=== PATIENT | female | born 1940 | race Caucasian/White ===

== ENCOUNTER 2019-07-22 08:54 | Inpatient (IN) ==
--- NOTE | 2019-07-13 15:46 | History & Physical Report ---
Date of Service July 13, 2019 Assessment & Plan (1) Osteoarthritis of right hip: DIAGNOSIS: Right hip osteoarthritis. PROCEDURE: Right total hip arthroplasty. PLAN: The patient is scheduled to undergo the procedure with Dr. Sunil Gonzalez as an inpatient at [facility] on , 07/22/2019. Risks and complications of the procedure such as infection, bleeding, pain, scarring, nerve and blood vessel damage, weakness, wound problems, stiffness, incomplete relief of symptoms, hardware failure, loosening, wear, fracture, tendon or ligament injury, dislocation, leg length inequality, blood clots, embolism, heart attack, stroke, were explained to the patient at her visit today by Dr. Gonzalez. Informed consent to perform the procedure was obtained. We will also need to obtain preoperative medical clearance from the patient's primary care provider, Dr. Dominguez. She states she has an appointment with her on Friday. We will also obtain a preoperative CBC with differential, complete metabolic panel, PT, INR, blood type and screen, urinalysis, urine culture, EKG, hemoglobin A1c and a nasal culture for MRSA. The patient states she has an appointment with anesthesia for preoperative anesthesia testing tomorrow and will receive the necessary preoperative testing at that time. The patient will be scheduled for her 2-week postoperative followup with myself on August 03 at 1:45. She states that she has a handicap placard in her car already and does not need another one. She has a walker that she will bring with her on the day of surgery. I did provide her with information about lectures offered at [facility] to hip [facility] replacement surgery. The patient states she has previously had a total knee arthroplasty and has done some research and understands what she will go through in regards to hip replacement. She also states that her son that lives with her had a total hip replacement in the past and will use the tools from his hip kit post operatively. She states she will most likely have some in-home with therapy for 2 weeks postoperatively before starting outpatient therapy. She states she already understands about the use of antibiotics prior to dental procedures. I advised the patient that I will prescribe her pain medication postoperatively before she is discharged. We will have her resume her aspirin twice daily for 30 days postoperatively for DVT prophylaxis along with the use of MANOHAR stockings. I have advised her that she will have her initial PT, OT visits while she is inpatient. She states she is not able to do her PT in our clinic after 2 weeks of in-home therapy, she will do it at one of the other local physical therapy establishments. The patient verbalizes understanding of all information provided during today's visit, thanked us for the care she has received and states if she has questions or concerns that should arise prior to her surgery date, she will contact the clinic accordingly. History of Present Illness Chief Complaint: Right hip pain Primary Care Provider: Lorin Dominguez MD HISTORY OF PRESENT ILLNESS: This 79-year-old female presents to clinic today for a preoperative history and physical. The patient complains of progressive increase in pain in her right hip over the past year that causes her to use a walker. She states she has been using Celebrex with only minimal relief of her pain. She states the pain is most severe at night when she tries to sleep. She refers most of her pain to the lateral and posterior aspect of her hip and feels it is affecting her activities of daily living and is ready to proceed with surgical intervention. PAST SURGICAL HISTORY: Left total knee arthroplasty, hysterectomy, cholecystectomy, right rotator cuff repair, small bowel resection, bilateral cataract removal and colonoscopy. PAST MEDICAL HISTORY: Hypertension, gout, gastroesophageal reflux disease. FAMILY HISTORY: Positive for cancer and heart disease. ALLERGIES: The patient has no known drug allergies. CURRENT MEDICATIONS USED: Allopurinol 300 mg oral tablet 1 tab daily, amlo dipine 5 mg oral tablet daily, aspirin 81 mg oral tablet daily, Celebrex 100 mg oral capsule 1 cap twice daily as needed for pain, hydrochlorothiazide/losartan 25 mg/100 mg oral tablet daily, meloxicam 7.5 mg oral tablet daily, omeprazole 40 mg oral delayed release capsule daily, Toprol-XL 100 mg oral tablet extended release 1 tab daily. SOCIAL HISTORY: The patient denies a history of smoking, alcohol or illicit drug use. Allergies Allergy/AdvReac Type Severity Reaction Status Date / Time No Known Allergies Allergy Unknown Verified 07/13/19 09:57 Home Medications Home Medications Medication Instructions Recorded Confirmed Type allopurinol 300 mg PO QAM 07/13/19 07/13/19 History amlodipine 5 mg PO HS 07/13/19 07/13/19 History aspirin [Aspir-81] 81 mg PO QAM 07/13/19 07/13/19 History bupropion HCl 150 mg PO Q2D 07/13/19 07/13/19 History celecoxib [Celebrex] 100 mg PO BID PRN 07/13/19 07/13/19 History losartan-hydrochlorothiazide 1 tab PO QAM 07/13/19 07/13/19 History metoprolol succinate 100 mg PO HS 07/13/19 07/13/19 History multivitamin 1 tab PO QAM 07/13/19 07/13/19 History omeprazole 40 mg PO QAM 07/13/19 07/13/19 History turmeric root extract 1,000 mg PO QPM 07/13/19 07/13/19 History vitamin E 400 unit PO QAM 07/13/19 07/13/19 History Past Med/Surg History Medical History Depression GERD (gastroesophageal reflux disease) Gout Hyperlipidemia NO MEDS CURRENTLY Hypertension Osteoarthritis Surgical History History of appendectomy History of cataract surgery R/L History of cholecystectomy History of colonoscopy History of hysterectomy TOTAL History of repair of rotator cuff RIGHT History of total knee replacement LEFT Family History Brother Family hx of colon cancer Social History Preferred Language: Occitan Communication Ability: Effective 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 No open skin lesions or discharge. Eyes: Pupils are equal and reactive to light and accommodating. Extraocular movements are intact. Throat: Posterior pharynx is clear with absence of edema, erythema or exudate. Cardiovascular exam: The patient has a regular rate and rhythm, no murmurs, rubs or gallops appreciated. Lungs: Auscultation of lung patino reveals clear breath sounds throughout with no wheezing, rales or rhonchi. Abdomen is mildly obese, nondistended, nontender with normoactive bowel sounds. Extremities: Right hip, the patient flexion is limited to 85 degrees, external rotation to 35 degrees, internal rotation to -5 degrees. Stinchfield log roll and impingement scour tests are all positive. The patient experiences referred pain to the lateral aspect of the hip with active abduction and adduction. The patient is neurovascularly intact in the right lower extremity. Neurological exam: Cranial nerves 2-12 are intact with no motor or sensory deficit. Psychological/general exam: The patient is alert and oriented x3 with proper grooming and hygiene.
--- NOTE | 2019-07-14 16:31 | PAT Medication Instructions ---
Medication Instructions Date of Service July 14, 2019 Home Medications allopurinol 300 mg PO QAM amlodipine 5 mg PO HS aspirin [Aspir-81] 81 mg PO QAM bupropion HCl 150 mg PO Q2D celecoxib [Celebrex] 100 mg PO BID PRN losartan-hydrochlorothiazide 1 tab PO QAM metoprolol succinate 100 mg PO HS multivitamin 1 tab PO QAM omeprazole 40 mg PO QAM turmeric root extract 1,000 mg PO QPM vitamin E 400 unit PO QAM Continue as directed bupropion HCl 150 mg PO Q2D ASK your surgeon for instructions celecoxib [Celebrex] 100 mg PO BID PRN STOP taking 2 weeks before surgery (or as soon as possible if surgery is within 2 weeks) turmeric root extract 1,000 mg PO QPM vitamin E 400 unit PO QAM DO NOT take the morning of surgery losartan-hydrochlorothiazide 1 tab PO QAM multivitamin 1 tab PO QAM Take morning of surgery With a small sip of water, OTHERWISE NOTHING TO EAT OR DRINK AFTER MIDNIGHT: allopurinol 300 mg PO QAM aspirin [Aspir-81] 81 mg PO QAM omeprazole 40 mg PO QAM Take evening before surgery amlodipine 5 mg PO HS metoprolol succinate 100 mg PO HS Other Notes If you have any questions please call us at [phone] or [phone] or [phone] or [phone]
--- NOTE | 2019-07-15 09:47 | Anesthesiology Consultation ---
Date of Service July 15, 2019 Assessment & Plan (1) Encounter for pre-operative examination: Chart Review Chart Review: Acceptable Risk for Surgery (pending surgeon-ordered PCP clearance scheduled 07/16 (Dr. Dominguez)) and Patient seen in Pre Admission Testing Teaching & Discussion Pre-Anesthesia Teaching/Discussion Notes: Instructed NPO after midnight before surgery,except medications with 15 cc of water. Medication instructions prov ided according to the PAT guidelines. History Surgery Operation Date: 07/22/19 10:35 Proposed Procedures p Right Total Hip Arthroplasty - Sunil Gonzalez MD Height/Weight Height: 5 ft 2 in Weight: 83.9 kg Allergies Allergy/AdvReac Type Severity Reaction Status Date / Time No Known Allergies Allergy Unknown Verified 07/13/19 09:57 Medications Home Medications Medication Instructions Recorded Confirmed Last Taken allopurinol 300 mg PO QAM 07/13/19 07/13/19 Unknown amlodipine 5 mg PO HS 07/13/19 07/13/19 Unknown aspirin [Aspir-81] 81 mg PO QAM 07/13/19 07/13/19 Unknown bupropion HCl 150 mg PO Q2D 07/13/19 07/13/19 Unknown celecoxib [Celebrex] 100 mg PO BID PRN 07/13/19 07/13/19 Unknown losartan-hydrochlorothiazide 1 tab PO QAM 07/13/19 07/13/19 Unknown metoprolol succinate 100 mg PO HS 07/13/19 07/13/19 Unknown multivitamin 1 tab PO QAM 07/13/19 07/13/19 Unknown omeprazole 40 mg PO QAM 07/13/19 07/13/19 Unknown turmeric root extract 1,000 mg PO QPM 07/13/19 07/13/19 Unknown vitamin E 400 unit PO QAM 07/13/19 07/13/19 Unknown Past Medical History Medical History Depression GERD (gastroesophageal reflux disease) controlled Gout Hyperlipidemia Hypertension Osteoarthritis Exercise / Class Metabolic Activity III < 4 Walking/Shop/Light housework (uses walker PRN) Past Family History Family History Brother Family hx of colon cancer Past Surgical History Surgical History History of appendectomy History of cataract surgery R/L History of cholecystectomy History of colonoscopy History of hysterectomy TOTAL History of repair of rotator cuff RIGHT History of total knee replacement LEFT Past Anesthesia History No Hx of Anesthesia Complications and No Family Hx of Anesthesia Complications History of PONV No Hx of PONV and No Hx of Motion Sickness Social History Smoking Status: Never smoker Do You Dip or Chew Tobacco: No Hx Alcohol Use: No Hx Substance Use: No Review of Systems Reflux controlled. Patient denies chest pain, shortness of breath, cough, wheezing, palpitations. Physical Exam Vital Signs VITALS BP 155/77 P 67 TEMP 97.5 SP02 96%RA RESP 16 PHYSICAL Full neck and c-spine range of motion. Full TMJ range of motion. TMD 4 finger breaths Mallampati Score 1 Dentition: full dentures upper/lower; edentulous Lungs: clear throughout to auscultation Cardiac: regular rate and rhythm, no murmurs noted Spine: normal Carotid arteries: negative bruit Extremities: no edema Testing Laboratory Results 07/15/19 10:16 07/15/19 10:16 PT 10.3 Seconds (9.0-12.0) 07/15/19 10:16 INR 1.0 (0.9-1.1) 07/15/19 10:16 APTT 24.8 Seconds (21.0-31.0) 07/15/19 10:16 Hemoglobin A1c 6.8 % (4.5-5.6) H 07/15/19 10:16 Urine Color Yellow 07/15/19 Unknown Urine Appearance Clear (Clear) 07/15/19 Unknown Urine pH 6.0 (4.5-7.5) 07/15/19 Unknown Ur Specific [place] 1.020 (1.000-1.030) 07/15/19 Unknown Urine Protein Negative (Negative) 07/15/19 Unknown Urine Glucose (UA) Negative (Negative) 07/15/19 Unknown Urine Ketones Negative (Negative) 07/15/19 Unknown Urine Nitrite Negative (Negative) 07/15/19 Unknown Ur Leukocyte Esterase 1+ (Negative) H 07/15/19 Unknown Urine WBC (Auto) 5-10 /hpf (0-5) H 07/15/19 Unknown Urine RBC (Auto) 0-4 /hpf (0-4) 07/15/19 Unknown U Hyaline Cast (Auto) 1-5 /lpf (0-5) 07/15/19 Unknown U Epithel Cells (Auto) >30 /lpf (0-5) H 07/15/19 Unknown Urine Bacteria (Auto) 1+ (Negative) H 07/15/19 Unknown Blood Type O Positive 07/15/19 10:16 Antibody Screen NEGATIVE 07/15/19 10:16 *Surgeon made aware of abnormal UA* Electrocardiogram Date: 07/15/19 NSR with sinus arrhythmia at 63bpm.
[2019-07-15 11:50] LABS: Basophils # (auto) 0.04 K/uL (0-0.2); Basophils % (auto) 0.5 %; Eosinophils # (auto) 0.21 K/uL (0-0.5); Eosinophils % (auto) 2.4 %; Hematocrit (blood only) 41.9 % (37-47); Hemoglobin 14.2 g/dL (12.0-16.0); Immature Granulocytes # (auto) 0.03 K/uL (0.00-0.02); Immature Granulocytes % (auto) 0.3 %; Lymphocytes # (auto) 2.04 K/uL (1.2-3.4); Lymphocytes % (auto) 23.1 %; Mean Corpuscular Hemoglobin 30.3 pg (25-34); Mean Corpuscular Hgb Conc 33.9 g/dL (32-36); Mean Corpuscular Volume 89.3 fL (80-100); Mean Platelet Volume 9.6 fL (7.4-10.4); Monocytes # (auto) 0.62 K/uL (0.11-0.59); Neutrophils % (auto) 66.7 %; Platelet Count 336 K/uL (130-400); RDW Coefficient of Variation 14.7 % (11.5-14.5); RDW Standard Deviation 47.5 fL (36.4-46.3); Red Blood Count 4.69 M/uL (4.2-5.4); White Blood Count 8.84 K/uL (4.8-10.8)
[2019-07-15 11:58] LABS: Appearance Urine Clear (Clear); Bacteria Urine Automated 1+ (Negative); Bilirubin Urine Negative (Negative); Blood Urine Negative (Negative); Color Urine Yellow; Epithelial Cell Urine Auto >30 /lpf (0-5); Glucose Urine UA Negative (Negative); Ketones Urine Negative (Negative); Leukocyte Esterase Urine 1+ (Negative); Nitrite Urine Negative (Negative); Protein Urine Negative (Negative); RBC Urine Automated 0-4 /hpf (0-4); Urobilinogen Urine Negative (Negative)
[2019-07-15 12:03] LABS: Partial Thromboplastin Ratio 0.9; Partial Thromboplastin Time 24.8 Seconds (21.0-31.0); Prothrombin Time 10.3 Seconds (9.0-12.0)
[2019-07-15 12:21] LABS: Albumin Level 3.5 gm/dl (3.4-5.0); BUN Creatinine Ratio 22.6 (10-20); Calcium 9.5 mg/dl (8.5-10.1); Creatinine Clr Calc Pharmacy 47.1 ml/min; Est GFR (African American) 65.9; Est GFR (Non-African American) 56.9; Potassium 3.5 mmol/L (3.5-5.1)
[2019-07-15 12:24] LABS: Bilirubin,Total 0.5 mg/dl (0.2-1); Globulin 3.5 gm/dl (2.5-4.0)
[2019-07-15 12:45] LABS: Estimated Average Glucose 148 mg/dl; Hemoglobin A1C 6.8 % (4.5-5.6)
[~2019-07-22 08:54] MED LIST: ACETAMINOPHEN 500 MG TAB PO SCH; BUPIVACAINE 0.5 % 5 MG/1 ML PF 10ML VIAL ONE; CEFAZOLIN 2000MG 2,000 MG/15 ML SYR IV SCH; CeleBREX 200 MG CAP PO SCH; FAMOTIDINE 20 MG TAB PO SCH; LR 500ML BOLUS, THEN 15ML/HR IV SCH; LR 60ML/HR IV SCH; METOCLOPRAMIDE HCL 10 MG TABLET PO SCH; ROPIVACAINE 0.5% HCL/PF 150 MG, BUPIVACAINE 0.5% MPF 30 ML, EPINEPHrine 0.15 MG, Ketoro... INFIL SCH; SCOPOLAMINE 1.5 MG TDSY TD SCH; TRAMADOL HCL 50 MG TABLET PO SCH; TRANEXAMIC ACID 1,000 MG **IV Intra-op IV SCH; TRANEXAMIC ACID 1,000 MG **IV Pre-op IV SCH; VANCOMYCIN HCL 1,250 MG in SODIUM CHLORIDE 0.9% 250 ML IV SCH; dexAMETHasone 4 MG TAB PO SCH
--- NOTE | 2019-07-22 09:30 | History & Physical Bridge Note ---
Date of Service July 22, 2019 History & Physical Bridge Note I have examined the patient, reviewed the History & Physical and in the interval since the performance of the History & Physical I have noted the following changes of clinical significance: no changes noted
[2019-07-22] MEDS ORDERED: PROPOFOL IV EMULSION 10 MG/ML 20 ML VIAL IV ONE ×2 (10:33→13:13)
[2019-07-22] MEDS ORDERED: fentaNYL citrate 100 MCG/2 ML VIAL ONE (10:33)
[2019-07-22] MEDS ORDERED: ONDANSETRON INJ 2 MG/ML 2 ML VIAL ONE (10:33)
[2019-07-22] MEDS ORDERED: MIDAZOLAM HCL 1 MG/ML 2ML VIAL ONE (10:33)
[2019-07-22] MEDS ORDERED: LIDOCAINE HCL 2% 2 ML VIAL/AMP(20MG/ML) INFIL ONE (10:33)
[2019-07-22] MEDS ORDERED: ORTHO JOINT ANESTHETIC ONE (11:44)
[2019-07-22] MEDS ORDERED: ePHEDrine sulfate 50 MG/ML AMP IV PRN (12:48)
[2019-07-22] MEDS ORDERED: ATROPINE SULFATE 0.1 MG/ML 10ML SYR IV PRN (12:48)
--- NOTE | 2019-07-22 14:04 | Post Operative Brief Note ---
Immediate Post Op Note v1 Date of Surgery July 22, 2019 Pre & Post Diagnosis Operation Date: 07/22/19 11:55 Pre-Op Diagnosis: Right Hip Arthritis Post-Op Diagnosis: Right Hip Arthritis Procedure Operation Date: 07/22/19 11:55 Actual Procedures p Right Total Hip Arthroplasty(Right) - Sunil Gonzalez MD Surgeon Sunil Gonzalez MD [employer] AIDAN Cook PA-C Estimated Blood Loss 100 Findings Consistent with Post-Op Diagnosis Fluids 1100 cc Anesthesia Type Spinal MAC Complications none Disposition Accompanied Patient To Recovery: No Disposition: Recovery Room
[2019-07-22] MEDS ORDERED: ONDANSETRON INJ 2 MG/ML 2 ML VIAL IV PRN (14:28)
[2019-07-22] MEDS ORDERED: METOCLOPRAMIDE HCL INJ 5 MG/ML 2 ML VIAL IV PRN (14:28)
[2019-07-22] MEDS ORDERED: NALOXONE HCL 0.4 MG/1 ML VIAL/CARP IV PRN (14:28)
[2019-07-22] MEDS ORDERED: BISACODYL 10 MG SUPP PR PRN (14:28)
[2019-07-22] MEDS ORDERED: HYDROmorphone INJ 0.5 MG/0.5 ML SYR IV PRN (14:28)
[2019-07-22] MEDS ORDERED: DiphenhydrAMINE HCL 50 MG/ML VIAL IV PRN (14:28)
[2019-07-22] MEDS ORDERED: OXYCODONE HCL IR 5 MG TAB (IMMEDIATE RELEASE) PO PRN (14:28)
[2019-07-22] MEDS ORDERED: MAGNESIUM HYDROXIDE SUSP 30 ML UDC PO PRN (14:28)
--- NOTE | 2019-07-22 14:28 | Operative Report ---
Post Operative Report Pre & Post Diagnosis Operation Date: 07/22/19 11:55 Pre-Op Diagnosis: Right Hip Arthritis Post-Op Diagnosis: Right Hip Arthritis Procedure Operation Date: 07/22/19 11:55 Actual Procedures p Right Total Hip Arthroplasty(Right) - Sunil Gonzalez MD Surgeon Sunil Gonzalez MD [employer] AIDAN Cook PA-C Estimated Blood Loss 100 Findings Consistent with Post-Op Diagnosis Specimens femoral head Complications none Disposition Accompanied Patient To Recovery: Yes Disposition: Recovery Room Description of Procedure I was present during the entire procedure assisting with wound closure and dressing application. Please see Dr. Gonzalez procedure note for specifics of the case. I attest to the content of the Intraoperative Record and any orders documented therein. Any exceptions are noted below.
[2019-07-22] MEDS ORDERED: SODIUM CHLORIDE 0.9% 1000ML 1,000 ML IV SCH (14:30)
[2019-07-22] MEDS ORDERED: CELECOXIB 100 MG CAP PO PRN (14:31)
--- NOTE | 2019-07-22 15:07 | Anesthesiology Progress Note ---
Date of Service July 22, 2019 Anesthesia Post Procedure Vital Signs Vital Signs: Temp Pulse Pulse Resp BP Pulse Ox 07/22/19 14:55 73 20 131/61 97 07/22/19 14:45 67 14 125/59 L 98 07/22/19 14:35 69 17 126/56 L 96 07/22/19 14:25 68 17 120/54 L 98 07/22/19 14:17 36.3 C L 73 12 109/72 98 07/22/19 09:56 36.5 C 72 16 145/74 H 93 Pain Intensity Right Hip: Pain Intensity: 0 Transfer of Care Handoff Completed per policy Notes Mental Status: alert / awake / arousable Patient Amnestic to Procedure: Yes Nausea / Vomiting: adequately controlled Pain: adequately controlled Airway Patency, RR, SpO2: stable & adequate BP & HR: stable & adequate Hydration State: stable & adequate Neuraxial Anesthesia: was administered and sensory block is resolving Anesthetic Complications: no major complications apparent
--- NOTE | 2019-07-22 15:13 | XRay Report ---
SINGLE VIEW PELVIS; SINGLE VIEW RIGHT HIP CLINICAL HISTORY: Postoperative examination. FINDINGS: An AP portable view of the hips and pelvis with a crosstable lateral portable view of the r ight hip are obtained. A bipolar right hip arthroplasty is in near-anatomic alignment. A single corti dalia lag screw transfixes the acetabular cup. No acute fracture is identified. There are expected post operative changes overlying the right hip including subcutaneous gas, and soft tissue swelling. Moder ate to advanced arthritic change is noted in the left hip. IMPRESSION: Expected postoperative findings status post right hip arthroplasty. No acute fracture is seen. Electronically signed by: Liam Hill M.D. 07/22/2019 3:12 PM
[2019-07-22] MEDS: CHECK SCOPOLAMINE PATCH PLACEMENT SCH ×2 (15:51→23:18)
[2019-07-22] MEDS: CEFAZOLIN 2000MG 2,000 MG/15 ML SYR IV SCH (19:33)
[2019-07-22] MEDS ORDERED: TRANEXAMIC ACID 1,000 MG in 0.9 % SODIUM CHLORIDE 100 ML IV SCH (20:30)
[2019-07-22] MEDS ORDERED: SENNA 8.6 MG TAB PO SCH (21:00)
[2019-07-22] MEDS ORDERED: AMLODIPINE BESYLATE 5 MG TAB PO SCH (21:00)
[2019-07-22] MEDS ORDERED: METOPROLOL SUCC 50MG EXT REL TAB PO SCH (21:00)
[2019-07-22] MEDS ORDERED: TURMERIC ROOT EXTRACT 1000 MG PO SCH (21:00)
[2019-07-22] MEDS ORDERED: ASPIRIN 81 MG ECTAB PO SCH (21:00)
[2019-07-22] MEDS: ASPIRIN 81 MG ECTAB PO SCH (21:28)
[2019-07-22] MEDS: CeleBREX 200 MG CAP PO SCH (21:28)
[2019-07-22] MEDS: DOCUSATE SODIUM 100 MG CAP PO SCH (21:28)
[2019-07-22] MEDS: ACETAMINOPHEN 500 MG TAB PO SCH (21:29)
[2019-07-23] MEDS: CEFAZOLIN 2000MG 2,000 MG/15 ML SYR IV SCH (05:09)
[2019-07-23] MEDS: ACETAMINOPHEN 500 MG TAB PO SCH (05:09)
[2019-07-23 07:17] LABS: Basophils # (auto) 0.01 K/uL (0-0.2); Basophils % (auto) 0.1 %; Hemoglobin 12.2 g/dL (12.0-16.0); Immature Granulocytes # (auto) 0.04 K/uL (0.00-0.02); Immature Granulocytes % (auto) 0.3 %; Lymphocytes # (auto) 1.01 K/uL (1.2-3.4); Lymphocytes % (auto) 6.6 %; Mean Corpuscular Hemoglobin 29.8 pg (25-34); Mean Corpuscular Hgb Conc 33.9 g/dL (32-36); Mean Corpuscular Volume 87.8 fL (80-100); Mean Platelet Volume 9.3 fL (7.4-10.4); Monocytes # (auto) 0.87 K/uL (0.11-0.59); Monocytes % (auto) 5.7 %; Neutrophils # (auto) 13.34 K/uL (1.4-6.5); Neutrophils % (auto) 87.3 %; Platelet Count 306 K/uL (130-400); RDW Coefficient of Variation 14.4 % (11.5-14.5); RDW Standard Deviation 46.5 fL (36.4-46.3); White Blood Count 15.27 K/uL (4.8-10.8)
[2019-07-23 07:21] LABS: BUN Creatinine Ratio 21.1 (10-20); Calcium 8.4 mg/dl (8.5-10.1); Creatinine Clr Calc Pharmacy 43.8 ml/min; Est GFR (African American) 60.5; Est GFR (Non-African American) 52.2; Potassium 3.5 mmol/L (3.5-5.1)
[2019-07-23] MEDS ORDERED: dexAMETHasone 4 MG TAB PO SCH (08:00)
[2019-07-23] MEDS ORDERED: BuPROPion XL 150 MG TABCR PO SCH (09:00)
[2019-07-23] MEDS ORDERED: TOCOPHERYL, DL-ALPHA 400 UNITS CAP PO SCH (09:00)
[2019-07-23] MEDS ORDERED: MULTIVITAMIN TAB PO SCH ×2 (09:00)
[2019-07-23] MEDS ORDERED: ALLOPURINOL 300 MG TAB PO SCH (09:00)
[2019-07-23] MEDS ORDERED: PANTOprazole 40 MG TAB PO SCH (09:00)
[2019-07-23] MEDS ORDERED: LOSARTAN/HCTZ 50/12.5MG TAB PO SCH (09:00)
[2019-07-23] MEDS: ASPIRIN 81 MG ECTAB PO SCH (09:06)
[2019-07-23] MEDS: CeleBREX 200 MG CAP PO SCH (09:06)
[2019-07-23] MEDS: DOCUSATE SODIUM 100 MG CAP PO SCH (09:06)
--- NOTE | 2019-07-23 10:23 | Orthopedic Progress Note ---
Date of Service July 23, 2019 Assessment & Plan (1) S/P total hip arthroplasty: DVT Prophy with TEDs and Aspirin Ice with EZ wrap Reviewed total hip precautions Abduction pillow use x 6 wks WBAT with walker assistance Pain control with PO meds Follow up at [facility] as previously scheduled With questions call Subjective This 79 yo F is day 1 s/p Right total hip arthroplasty. She is doing very well. States that her pain is well controlled with PO meds. States that she did well with PT/OT this AM. Magy hip pain. Also denies CP, SOB, Nausea, vomiting, fever, chills, sweats or lethargy. States that she will be ready to go home after lunch today. Review of Systems Review of Systems: All systems reviewed & are unremarkable except as noted in HPI & below Physical Exam Physical Exam: Right Hip: Able to perform SLRT without difficulty. Dressing clean, dry and intact. No pain with light log roll, passive internal / external rotation. Calf soft and supple. No difficulty actively dorsi/plantar flexing foot. NV intact. Periph pulses palpable. Cap refill < 2 seconds. Results & Data Vital Signs (Past 12 Hours) Vital Signs Temp Pulse Pulse Pulse Resp BP Pulse Ox 07/23/19 09:32 36.6 C 70 80 68 16 128/77 91 07/23/19 07:18 36.6 C 68 16 128/77 91 07/23/19 03:35 36.6 C 82 18 163/81 H 93 07/22/19 23:46 36.5 C 80 18 151/75 H 94 Laboratory Results 07/23/19 07/23/19 Range/Units 06:08 06:08 WBC 15.27 H (4.8-10.8) K/uL RBC 4.10 L (4.2-5.4) M/uL Hgb 12.2 (12.0-16.0) g/dL Hct 36.0 L (37-47) % MCV 87.8 (80-100) fL MCH 29.8 (25-34) pg MCHC 33.9 (32-36) g/dL RDW Std Deviation 46.5 H (36.4-46.3) fL RDW Coeff of Nicky 14.4 (11.5-14.5) % Plt Count 306 (130-400) K/uL MPV 9.3 (7.4-10.4) fL Immature Gran % (Auto) 0.3 % Neut % (Auto) 87.3 % Lymph % (Auto) 6.6 % [place] % (Auto) 5.7 % Eos % (Auto) 0.0 % Baso % (Auto) 0.1 % Immature Gran # (Auto) 0.04 H (0.00-0.02) K/uL Neut # (Auto) 13.34 H (1.4-6.5) K/uL Lymph # (Auto) 1.01 L (1.2-3.4) K/uL [place] # (Auto) 0.87 H (0.11-0.59) K/uL Eos # (Auto) 0.00 (0-0.5) K/uL Baso # (Auto) 0.01 (0-0.2) K/uL Sodium 141 (136-145) mmol/L Potassium 3.5 (3.5-5.1) mmol/L Chloride 107 (98-107) mmol/L Carbon Dioxide 27 (21-32) mmol/L Anion Gap 7.0 (3-11) BUN 21 H (7-18) mg/dl Creatinine 1.01 (0.6-1.2) mg/dl Est Cr Clr Drug Dosing 43.8 ml/min Est GFR ( Amer) 60.5 Est GFR (Non-Af Amer) 52.2 BUN/Creatinine Ratio 21.1 H (10-20) Glucose 164 H (70-99) mg/dl Calcium 8.4 L (8.5-10.1) mg/dl
--- NOTE | 2019-07-23 10:24 | Discharge Summary ---
Date of Service July 23, 2019 Admission HPI Per Admitting Provider HISTORY OF PRESENT ILLNESS: This 79-year-old female presents to clinic today for a preoperative history and physical. The patient complains of progressive increase in pain in her right hip over the past year that causes her to use a walker. She states she has been using Celebrex with only minimal relief of her pain. She states the pain is most severe at night when she tries to sleep. She refers most of her pain to the lateral and posterior aspect of her hip and feels it is affecting her activities of daily living and is ready to proceed with surgical intervention. PAST SURGICAL HISTORY: Left total knee arthroplasty, hysterectomy, cholecystectomy, right rotator cuff repair, small bowel resection, bilateral cataract removal and colonoscopy. PAST MEDICAL HISTORY: Hypertension, gout, gastroesophageal reflux disease. FAMILY HISTORY: Positive for cancer and heart disease. ALLERGIES: The patient has no known drug allergies. CURRENT MEDICATIONS USED: Allopurinol 300 mg oral tablet 1 tab daily, amlodipine 5 mg oral tablet daily, aspirin 81 mg oral tablet daily, Celebrex 100 mg oral capsule 1 cap twice daily as needed for pain, hydrochlorothiazide/losartan 25 mg/100 mg oral tablet daily, meloxicam 7.5 mg oral tablet daily, omeprazole 40 mg oral delayed release capsule daily, Toprol- XL 100 mg oral tablet extended release 1 tab daily. SOCIAL HISTORY: The patient denies a history of smoking, alcohol or illicit drug use. Admission Exam Per Admitting Provider PHYSICAL EXAMINATION: Skin: The patient's skin is normal in appearance. No open skin lesions or discharge. Eyes: Pupils are equal and reactive to light and accommodating. Extraocular movements are intact. Throat: Posterior pharynx is clear with absence of edema, erythema or exudate. Cardiovascular exam: The patient has a regular rate and rhythm, no murmurs, rubs or gallops appreciated. Lungs: Auscultation of lung patino reveals clear breath sounds throughout with no wheezing, rales or rhonchi. Abdomen is mildly obese, nondistended, nontender with normoactive bowel sounds. Extremities: Right hip, the patient flexion is limited to 85 degrees, external rotation to 35 degrees, internal rotation to -5 degrees. Stinchfield log roll and impingement scour tests are all positive. The patient experiences referred pain to the lateral aspect of the hip with active abduction and adduction. The patient is neurovascularly intact in the right lower extremity. Neurological exam: Cranial nerves 2-12 are intact with no motor or sensory deficit. Psychological/general exam: The patient is alert and oriented x3 with proper grooming and hygiene. Principal Diagnosis Right hip osteoarthritis Discharge Exam Right Hip: Able to perform SLRT without difficulty. Dressing clean, dry and intact. No pain with light log roll, passive internal / external rotation. Calf soft and supple. No difficulty actively dorsi/plantar flexing foot. NV intact. Periph pulses palpable. Cap refill < 2 seconds. Discharge Data Allergies Allergy/AdvReac Type Severity Reaction Status Date / Time No Known Allergies Allergy Unknown Verified 07/22/19 09:40 Consultations 07/23/19 08:00 Consult Case Management - Discharge Planning Routine Procedures Performed Operation Date: 07/22/19 11:55 Actual Procedures p Right Total Hip Arthroplasty(Right) - Sunil Gonzalez MD Hospital Course (1) S/P total hip arthroplasty: Patient did very well overnight and will be ready for discharge with home health services after lunch today DVT Prophy with TEDs and Aspirin Ice with EZ wrap Reviewed total hip precautions Abduction pillow use x 6 wks WBAT with walker assistance Pain control with PO meds Follow up at [facility] as previously scheduled With questions call Total Time Total Time Spent Total Time Spent (In Minutes): 20 Total Time Includes: Examination of the Patient, Discharge Planning and Medication Reconciliation Discharge Plan Discharge Items Patient Disposition: Home - Home Health Services Reason For Visit: Right Hip Arthritis Discharge Diagnosis: Right hip osteoarthritis Discharge Goals: Decrease discomfort, Improve function and Increase independence Activity: As commented below Lifting: None Bathing: Keep incision dry Bathing Comment: May shower tomorrow Sexual Activity: Wait until after follow-up appointment Exercise/Sports: Wait until after follow-up appointment Driving/Machine Use Comment: No driving until cleared by content production specialist Weightbearing Comment: as tolerated with walker assistance Non-emergency contact: Primary Care Provider Call non-emergency contact if: you have any medication questions, your pain is not controlled, your temperature is above 101.5, your wound has increased drainage and your wound pain has increased Follow-up/Referrals: Lorin Dominguez MD [Primary Care Provider] - Diet: Regular Addtl Provider Instructions: Post-operative Instructions Dear Patient and Family/Friends, Before you are discharged from the hospital, it is important to know what to expect when you get home after surgery. To that end, we have created this sheet of discharge instructions which covers many commonly asked questions. Make sure you go through this sheet in its entirety with your nurse before you are discharged. Please note that we will go over the specifics of your surgery and recovery when you return for your first post-operative visit. Sincerely, Dr. Gonzalez Medications 1. You will need to increase your 81mg Aspirin to 2 times daily for 30 days post operatively 2. Oxycodone 5 mg: take 1-2 tabs by mouth every 4-6 hrs as needed for pain relief 3. Diclofenac Sodium 75 mg: this will be sent to your pharmacy. Take 1 tab by mouth twice daily for 30 days post operatively 4. Purchase extra Strength Tylenol: Take 2 tabs with every other dose of the Oxycodone. After you have finished the Oxy, then take the Tylenol every 6 hrs as needed for pain relief. Pain Expect to be in a fair amount of pain after surgery. Remember, our goal is not to eliminate your pain, but to make it tolerable. It is a good idea to stay ahead of your pain by taking the medications you were prescribed once you get home. Typically, the pain starts improving 3-7 days after surgery. You should start weaning off the narcotic pain medication (oxycodone, hydrocodone, hydromorphone, morphine) as soon as your pain improves. Please call our office if your pain is not adequately controlled. Ice Ice your operative site at least 5 times a day for 15-30 minutes at a time. Make sure you have a thin cloth between the ice or cooling unit and your skin to prevent nathan bite. This is especially important if you received a nerve block. Continue icing your operative site for the first 5-7 days after surgery, then as needed. Diet/Nausea/Vomiting Start by drinking clear liquids and eating crackers. If you can tolerate this, then you may resume your normal diet. If you feel nauseated or vomit, take Zofran/ondansetron (if prescribed). Please call our office if you have intractable nausea or vomiting, or, if after hours, you may go to the Emergency Room for help. Constipation Constipation is a common side effect of narcotic pain medication. If you have not had a bowel movement within 2 days after surgery, we recommend purchasing an over the counter laxative such as Milk of Magnesia, Dulcolax, or Miralax from a local pharmacy, and taking it as instructed. Call our clinic if any questions. Nerve block The anesthesia team sometimes places a nerve block to help with post-operative pain control. This results in significant numbness and inability to move the extremity. The nerve block usually wears off in 8-12 hours, but sometimes can last up to 24 hours. Please call our office if you are still unable to move your extremity after 24 hours, unless you received a pain pump to take home. Nerve blocks typically wear off quickly, so start taking pain medication as soon as you start feeling soreness near your surgical site. Weight bearing and Range of Motion. Do not bear any weight through your operative extremity immediately after surgery. If you had upper extremity surgery, do not lift anything with that arm. If you are in a knee brace, keep it locked in place until your follow-up. We will discuss your weight bearing, range of motion, and lifting restrictions in detail at your first post-operative appointment. Continuous Passive Motion (CPM) Machine If you were prescribed a CPM machine, it will start after your first post- operative appointment, at which time we will give you instructions on the range of motion settings and duration of treatment Physical therapy You will be given a prescription for physical therapy or occupational therapy at your first post-operative appointment. Typically, patients start therapy within 1 week of surgery Wound care and showering We will inspect your wound at your first post-operative visit, and may do a dressing change at that time. Most patients will be in a water-proof dressing that is removed 14 days after surgery. It is normal to see some dried blood on the dressing. Do not remove your dressing, paper strips or sutures yourself unless you are given permission. Showering is allowed the day after surgery. Do not scrub or remove any dressings. The wound should not be submerged underwater (i.e. in a bathtub or pool) until 4 weeks after surgery MANOHAR stockings If you were given white stockings, these are to be worn at all times except to shower (on both legs) for the first 2 weeks after surgery. Driving You may not drive while taking narcotic pain medication or while in a cast, splint, sling or brace. You, the patient, need to make the final determination about when you are safe to drive, however, the earliest you may consider driving after surgery is below: Hand/Wrist/Elbow Surgery: 3 days Shoulder Surgery: 2 weeks Hip,/Knee/Ankle Surgery: 4 weeks Fracture repair: 6 weeks Return to Work Your return to work depends on what surgery was done and what type of work you do. Please bring any paperwork your employer needs completed to your first post-operative visit. Also, bring a description of your job duties, as this helps us to understand what risks you may face at work. Travel Avoid long distance travel (greater than 1 hour) in airplanes and cars for the first 6 weeks after surgery. If you must travel, you need to have a Doppler ultrasound done before you travel to rule out a blood clot in your legs. Follow-up You should have a follow-up appointment already scheduled 1-2 days after surgery. If not, please contact our office to make this appointment before you leave the hospital. When to call the office It is normal to have swelling and bruising in the limb that was operated on. This will improve with time. It is also normal to have fevers for the first 2 days after surgery. Reasons you should call your doctor include: Uncontrolled pain; Nausea, vomiting, or constipation that does not improve with medication; Fevers over 101.5, chills, sweats; Drainage or bleeding from the wound; Foul odor; Spreading areas of redness; Any other concerns Prescriptions: New diclofenac sodium 75 mg tablet,delayed release (DR/EC) 75 mg PO BID PRN (Reason: pain) 30 Days Qty: 60 RF: 1 oxycodone 5 mg tablet See Rx Instructions .ROUTE .COMPLEX PRN (Reason: pain) Qty: 30 RF: 0 Continued multivitamin Tablet 1 tab PO QAM RF: 0 metoprolol succinate 100 mg Tablet Extended Release 24 Hr 100 mg PO HS RF: 0 losartan-hydrochlorothiazide 100-25 mg Tablet 1 tab PO QAM RF: 0 allopurinol 300 mg Tablet 300 mg PO QAM RF: 0 bupropion HCl 150 mg Tablet Extended Release 24 Hr 150 mg PO Q2D RF: 0 omeprazole 40 mg Capsule,Delayed Release(Dr/Ec) 40 mg PO QAM RF: 0 vitamin E 400 unit Capsule 400 unit PO QAM RF: 0 celecoxib [Celebrex] 100 mg Capsule 100 mg PO BID PRN (Reason: Pain) RF: 0 turmeric root extract 500 mg Capsule 1,000 mg PO QPM RF: 0 amlodipine 5 mg Tablet 5 mg PO HS RF: 0 Changed aspirin [Aspir-81] 81 mg Tablet,Delayed Release (Dr/Ec) 81 mg PO BID Qty: 0 RF: 0 Stand-Alone Forms: [employer] [facility]/Other Patient Handouts: Surgery Prevent DVT After Discharge Orders: Discharge Order (Routine); Ordered 07/23/19 Ordered By: Garo Cook Admission Data Admit Date/Time: 07/22/19 14:28 Attending Provider: Sunil Gonzalez Admit Provider: Sunil Gonzalez Primary Care Provider: Lorin Dominguez Service: Surgical Services Other Interventions: Discharge Summary Assessment (RN) Last Done: 07/23/19 09:32 Pending Studies at Discharge: No
--- NOTE | 2019-07-26 15:55 | Operative Report ---
DATE OF OPERATION: 07/22/2019 PREOPERATIVE DIAGNOSIS: Right hip osteoarthritis. POSTOPERATIVE DIAGNOSIS: Right hip osteoarthritis. OPERATIONS PERFORMED: Right total hip arthroplasty. SURGEON: Sunil Gonzalez MD TENTER: Greer Cook. ESTIMATED BLOOD LOSS: 100 mL. SPECIMENS: Femoral head. COMPLICATIONS: None. IMPLANTS: 1. DePuy Ellsworth Gription sector cup with a 52 mm outer diameter. 2. A 6.5 x 40 mm bone screw. 3. Ultrex neutral polyethylene liner for a 32 mm femoral head. 4. DePuy Nance size 3 tapered standard offset stem. 5. DePuy metal femoral head, 32 mm diameter with +8.5 offset. INDICATIONS: The patient is an 79-year-old female with right hip pain refractory to conservative management. X-rays show bone on bone arthritis with subchondral cyst formation and early femoral head collapse. I had a long discussion with her about the risks and benefits of surgery, alternatives to surgery and expected outcomes. After reviewing all these, she elected to proceed with surgery. All questions were answered. Informed consent was signed. DESCRIPTION OF THE OPERATION: The patient was identified in the preoperative holding area where her surgical site was marked. She was given a spinal anesthetic and then brought back to the main operating room where she was placed on the operating room table, moved in the lateral decubitus position. All bony prominences were padded. Perioperative antibiotics were administered as well as tranexamic acid. She was prepped and draped in normal sterile fashion. Prior to incision, a multidisciplinary timeout was called. All in the room were in agreement. We began by making a 14 cm long incision for a posterior approach to the hip. We dissected down through subcutaneous tissues to the level of fascia. Fascia was incised in line with the incision. Charnley bow was placed. Trochanteric bursa was excised. Subperiosteal dissection was used to release the quadratus femoris, piriformis and short external rotators off the posterior aspect of the hip. A box cut was placed in the capsule. The femoral head was dislocated. Femoral neck cut was made. The femoral head was removed and sent to pathology. The acetabulum was then exposed. The acetabular labrum was sharply excised. Contents of cotyloid fossa were removed with electrocautery. We then medialized her acetabulum starting with a size 44 reamer. We then sequentially reamed up until we got to a size 52 reamer which gave us a good fit throughout the acetabulum and a healthy bleeding cancellous bone. The acetabulum was then irrigated out. The size 52 Gription Ellsworth cup was opened up and impacted down into position with 40 degrees of lateral opening and 20 degrees of anteversion. A single cancellous bone screw was placed. The polyethylene liner for a 32 mm femoral head was then impacted into position, the locking mechanism was checked to ensure it had engaged, which it had. Next, the femoral neck was exposed. The lateral neck was removed with a cookie cutter. The intramedullary guide was used followed by the lateralizing reamer. We then reamed her up to a size 3. We then broached her all the way up to a size 3, which gave us excellent torsional stability and sat at the level of our femoral neck cut. We then started trialing her. We initially trialled with a +5 head. I decided to upsize her to a +8.5 to give us a little bit better leg lengths when we tested her. With the +8.[address], she had no impingement in extension and external rotation. Her leg lengths were symmetric. Her shuck test was appropriate, she was stable in the sleeper position, and at 90 degrees of hip flexion, she could be internally rotated 45 degrees before leaving out of the cup. I was happy with the stability exam. Therefore, the trial components were removed. The femoral canal was irrigated and dried. The real size 3 standard offset Nance femoral stem was then opened up and impacted down into position. The component sat at the same level as the broach. Therefore, the +8.5 mm metal femoral head was opened up and impacted down onto the trunnion. The hip was atraumatically reduced. The wound was irrigated out with a dilute Betadine solution which was allowed to sit for 3 minutes. This was then suctioned out and the periarticular injection was inserted. We then closed the posterior capsule and piriformis as well as short external rotators through bone tunnels using #2 Vicryl. The fascia was run with a looped #1 PDS. The subcutaneous layers were closed with 2 layers of #1 PDS. 2-0 Vicryl and a ZipLine were used for the skin. A Silverlon dressing was placed. Her sedation was lifted and she was transferred to the recovery room in stable condition. POSTOPERATIVE COURSE: The patient will be admitted overnight for pain control and monitoring. She will be weightbearing as tolerated with posterior hip precautions. She will work with physical therapy in the morning. She will be on aspirin for DVT prophylaxis. I attest to the content of the Intraoperative Record and any orders documented therein. Any exception s are noted below.
== END 2019-07-23 12:33 | disposition home health service (06) | DRG 470 ==
LOC: ASU 08:54 → 3E 14:28

== ENCOUNTER 2019-12-02 06:26 | Inpatient (IN) ==
--- NOTE | 2019-11-19 14:49 | PAT Medication Instructions ---
Medication Instructions Date of Service November 19, 2019 Home Medications allopurinol 300 mg PO QAM amlodipine 5 mg PO HS celecoxib [Celebrex] 100 mg PO BID PRN losartan-hydrochlorothiazide 1 tab PO QAM metoprolol succinate 100 mg PO HS multivitamin 1 tab PO QAM omeprazole 40 mg PO QAM aspirin [Aspir-81] 81 mg PO QAM cholecalciferol (vitamin D3) 1,000 unit PO QAM ASK your surgeon for instructions celecoxib [Celebrex] 100 mg PO BID PRN DO NOT take the morning of surgery losartan-hydrochlorothiazide 1 tab PO QAM multivitamin 1 tab PO QAM cholecalciferol (vitamin D3) 1,000 unit PO QAM Take morning of surgery With a small sip of water, OTHERWISE NOTHING TO EAT OR DRINK AFTER MIDNIGHT: allopurinol 300 mg PO QAM omeprazole 40 mg PO QAM aspirin [Aspir-81] 81 mg PO QAM Take evening before surgery amlodipine 5 mg PO HS metoprolol succinate 100 mg PO HS Other Notes If you have any questions please call us at [phone] or [phone] or [phone] or [phone]
--- NOTE | 2019-11-19 14:56 | Anesthesiology Consultation ---
Date of Service November 19, 2019 Assessment & Plan (1) Encounter for pre-operative examination: R CHRISTINE 08/01/19 = SAB X 1 ATTEMPT. NO ISSUES NOTED ON RECORD. Chart Review Chart Review: Acceptable Risk for Surgery and Patient seen in Pre Admission Testing Teaching & Discussion Instructed NPO after midnight before surgery, except medications with 15 cc of water. Medication instructions provided according to the PAT guidelines. History Surgery Operation Date: 12/02/19 09:20 Proposed Procedures p Left Total Hip Arthroplasty - Sunil Gonzalez MD Height/Weight Height: 5 ft 2 in Weight: 84.8 kg Allergies Allergy/AdvReac Type Severity Reaction Status Date / Time No Known Allergies Allergy Unknown Verified 11/19/19 10:59 Medications Home Medications Medication Instructions Recorded Confirmed Last Taken allopurinol 300 mg PO QAM 07/13/19 11/19/19 07/22/19 07:30 amlodipine 5 mg PO HS 07/13/19 11/19/19 07/21/19 22:00 celecoxib [Celebrex] 100 mg PO BID PRN 07/13/19 11/19/19 Unknown losartan-hydrochlorothiazide 1 tab PO QA 07/13/19 11/19/19 07/18/19 metoprolol succinate 100 mg PO HS 07/13/19 11/19/19 07/21/19 22:00 multivitamin 1 tab PO QAM 07/13/19 11/19/19 06/02/19 omeprazole 40 mg PO QAM 07/13/19 11/19/19 07/21/19 aspirin [Aspir-81] 81 mg PO QAM 11/19/19 11/19/19 Unknown cholecalciferol (vitamin D3) 1,000 unit PO QAM 11/19/19 11/19/19 Unknown [Vitamin D3] Past Medical History Medical History Depression GERD (gastroesophageal reflux disease) controlled Gout Hyperlipidemia Hypertension Osteoarthritis Exercise / Class Metabolic Activity III < 4 Walking/Shop/Light housework (Denies CP or SOB with 1 FOS but not doing stairs 2/2 hip pain) Past Family History Family History Brother Family hx of colon cancer Past Surgical History Surgical History History of appendectomy History of cataract surgery R/L History of cholecystectomy History of colonoscopy History of hysterectomy TOTAL History of intestinal surgery History of repair of rotator cuff RIGHT History of right hip replacement Right CHRISTINE: 07/22/19: SAB x 1 at L3-L4 at [facility] History of total knee replacement LEFT Past Anesthesia History No Hx of Anesthesia Complications and No Family Hx of Anesthesia Complications History of PONV No Hx of PONV and No Hx of Motion Sickness Social History Smoking Status: Never smoker Do You Dip or Chew Tobacco: No Hx Alcohol Use: No Hx Substance Use: No substance use type: does not use Review of Systems Pt denies any recent chest pain, shortness of breath, palpitations, cough, fever or URI. Physical Exam Vital Signs BP: 155/69 (pt states this is high for her) P: 40bpm (pt denies lightheadedness or dizziness) EKG showed SR @ 74bpm with PVCs. Pulse ox was likely inaccurate due to PVCs. SPO2: 94% RA T: 97.4 F R: 10 ENMT Mouth: + dentures and + edentulous Thyromental Distance: > or= 3.5 Finger Breadths (3.5) Mallampati Class: II Neck normal visual inspection; neck extension not limited Respiratory normal respiratory effort Auscultation: lungs clear to auscultation bilaterally Cardiovascular Rate/Rhythm: + bradycardic; + abnormal rhythm Heart Sounds: no murmur Vessels: no carotid bruit Sounded markedly bradycardic on exam with irregular rhythm. EKG performed showed normal rate with PVCs. Testing Laboratory Results 11/19/19 15:06 11/19/19 15:09 PT 10.3 Seconds (9.0-12.0) 11/19/19 15:06 INR 1.0 (0.9-1.1) 11/19/19 15:06 APTT 24.9 Seconds (21.0-31.0) 11/19/19 15:06 Hemoglobin A1c 6.8 % (4.5-5.6) H 11/19/19 15:06 Urine Color Yellow 11/19/19 15:06 Urine Appearance Clear (Clear) 11/19/19 15:06 Urine pH 6.0 (4.5-7.5) 11/19/19 15:06 Ur Specific [place] 1.023 (1.000-1.030) 11/19/19 15:06 Urine Protein Negative (Negative) 11/19/19 15:06 Urine Glucose (UA) Negative (Negative) 11/19/19 15:06 Urine Ketones Negative (Negative) 11/19/19 15:06 Urine Nitrite Negative (Negative) 11/19/19 15:06 Ur Leukocyte Esterase 1+ (Negative) H 11/19/19 15:06 Urine WBC (Auto) 10-30 /hpf (0-5) H 11/19/19 15:06 Urine RBC (Auto) 0-4 /hpf (0-4) 11/19/19 15:06 U Hyaline Cast (Auto) 1-5 /lpf (0-5) 11/19/19 15:06 U Epithel Cells (Auto) >30 /lpf (0-5) H 11/19/19 15:06 Urine Bacteria (Auto) Negative (Negative) 11/19/19 15:06 Blood Type O Positive 11/19/19 15:06 Antibody Screen NEGATIVE 11/19/19 15:06 11/19/19 15:06 Urine Culture - Final Urine,Clean Catch More than three types of organisms present, all moderate counts mixed probable skin zulma. No further identifications or sensitivities to follow. Electrocardiogram Date: 11/19/19 Findings: + NSR @ (74bpm with PVCs, conducted aberrantly) Compared to EKG from 07/15/19, PVCs are now present.
[2019-11-19 15:57] LABS: Basophils # (auto) 0.04 K/uL (0-0.2); Basophils % (auto) 0.4 %; Eosinophils # (auto) 0.19 K/uL (0-0.5); Eosinophils % (auto) 2.1 %; Hemoglobin 13.7 g/dL (12.0-16.0); Immature Granulocytes # (auto) 0.01 K/uL (0.00-0.02); Immature Granulocytes % (auto) 0.1 %; Lymphocytes # (auto) 2.86 K/uL (1.2-3.4); Lymphocytes % (auto) 31.1 %; Mean Corpuscular Hemoglobin 29.5 pg (25-34); Mean Corpuscular Hgb Conc 32.6 g/dL (32-36); Mean Corpuscular Volume 90.3 fL (80-100); Mean Platelet Volume 9.5 fL (7.4-10.4); Monocytes # (auto) 0.66 K/uL (0.11-0.59); Monocytes % (auto) 7.2 %; Neutrophils # (auto) 5.45 K/uL (1.4-6.5); Neutrophils % (auto) 59.1 %; Platelet Count 333 K/uL (130-400); RDW Coefficient of Variation 15.2 % (11.5-14.5); RDW Standard Deviation 50.1 fL (36.4-46.3); Red Blood Count 4.65 M/uL (4.2-5.4); White Blood Count 9.21 K/uL (4.8-10.8)
[2019-11-19 15:58] LABS: Appearance Urine Clear (Clear); Bacteria Urine Automated Negative (Negative); Bilirubin Urine Negative (Negative); Blood Urine Negative (Negative); Color Urine Yellow; Epithelial Cell Urine Auto >30 /lpf (0-5); Glucose Urine UA Negative (Negative); Ketones Urine Negative (Negative); Leukocyte Esterase Urine 1+ (Negative); Nitrite Urine Negative (Negative); Protein Urine Negative (Negative); RBC Urine Automated 0-4 /hpf (0-4); Specific Gravity Urine 1.023 (1.000-1.030); Urobilinogen Urine Negative (Negative)
[2019-11-19 15:58] LABS: BUN Creatinine Ratio 26.2 (10-20); Calcium 9.4 mg/dl (8.5-10.1); Creatinine Clr Calc Pharmacy 54.3 ml/min; Est GFR (African American) 77.8; Est GFR (Non-African American) 67.1; Potassium 3.7 mmol/L (3.5-5.1)
[2019-11-19 16:07] LABS: Partial Thromboplastin Ratio 0.9; Partial Thromboplastin Time 24.9 Seconds (21.0-31.0); Prothrombin Time 10.3 Seconds (9.0-12.0)
[2019-11-20 06:16] LABS: Estimated Average Glucose 148 mg/dl; Hemoglobin A1C 6.8 % (4.5-5.6)
--- NOTE | 2019-11-20 07:50 | Electrocardiogram Report ---
Test Reason : Blood Pressure : / mmHG Vent. Rate : 074 BPM Atrial Rate : 074 BPM P-R Int : 190 ms QRS Dur : 078 ms QT Int : 406 ms P-R-T Axes : 069 031 056 degrees QTc Int : 450 ms Sinus rhythm with Premature supraventricular complexes conducrted aberrantly Otherwise normal ECG When compared with ECG of 15-JUL-2019 10:23, Premature supraventricular complexes are now Present Confirmed by Perez Partida [id number] on 11/20/2019 7:50:05 AM Referred By: Sunil Gonzalez Confirmed By:Ulices Partida
--- NOTE | 2019-11-24 14:30 | History & Physical Report ---
Date of Service November 24, 2019 Assessment & Plan (1) Osteoarthritis of left hip: Diagnosis: [Left hip osteoarthritis] Procedure: [Left total hip arthroplasty] Plan: [Patient is scheduled to undergo procedures as an inpatient at the [facility] on December 02, 2019 risks and complications of the procedure such as infection bleeding painNerve blood vessel damage weakness from problem stiffness incomplete relief of symptoms hardware failure hardware loosening wear fracture tendon ligament injury dislocation ligament inequality blood clots embolism heart attack stroke at her visit today by Dr. Gonzalez. informed consent to perform the procedure was obtained we have already previously received preoperative medical clearance from the patient's primary care provider Dr. Lorin Dominguez, as well as a preoperative CBC with differential complete metabolic panel PT/INR blood type and screen urinalysis urine culture hemoglobin A1c and a nasal swab for MRSA patient previously had her updated EKG prior to her last surgery. Patient's recent urinalysis showed a mild urinary tract infection, so during today's visit I sent a prescription for Cipro to her pharmacy to take for the next few days and we will repeat the urinalysis next Friday. I provided her with an order to obtain this test. Patient states she will most likely do her therapy in- home. She states she already has a handicap placard for her car and also has a hip kit from her previous surgery. She will bring her walker to the hospital on the day of surgery. I again went over the discharge planning prescriptions that she will be given an total hip precautions. Patient verbalized understanding of information) visit thanks for the care she is received and states she has questions or concerns should arise prior to her surgery date she will contact clinic accordingly.] History of Present Illness Chief Complaint: Left hip pain Primary Care Provider: NO PCP History of Present Illness: This 79-year-old female presents to the clinic today for her preoperative history and physical. Patient has a longstanding history of bilateral hip pain. She underwent right total hip arthroplasty in July 2019 and has been doing well since. Over the past several months she has noticed an increase in the left hip hip and is failed conservative options. She states that the pain affects her gait, her ability to bend at the waist, she has difficulty putting on shoes or socks and feels that it is affecting her activities of daily living. Past History: Past medical history; hypertension, gout, gastroesophageal reflux Past surgical history; right total hip arthroplasty, left total knee arthroplasty, hysterectomy, cholecystectomy, right rotator cuff repair, small bowel resection, bilateral cataract removal and colonoscopy Family History: [Heart disease and cancer] Review of Systems: [Unremarkable except for those things stated in the HPI] Known Allergies to Medications: [Patient has no known drug allergies] Medication List Active Medications Ordered amLODIPine: 1 tab, PO, Daily. cholecalciferol: Start: 11/19/19 9:21:00 EST. ciprofloxacin: 1 tab, PO, tid, for 3 day, 9 tab, 0 Refill(s). hydroCHLOROthiazide-losartan: Start: 05/21/19 10:21:00 EDT. metoprolol: 1 tab, PO, Daily. omeprazole: Start: 05/21/19 10:21:00 EDT. omeprazole: Start: 11/19/19 9:21:00 EST. Medications Inactivated in the Last 72 Hours No medications found. Social History: [Negative for alcohol tobacco or illicit drug use Vital signs: Weight 84.3 kg Height 158.5 cm Blood pressure 142/78 Pulse 70 Oxygen saturation 98%] Diagnosis: [Left hip osteoarthritis] Procedure: [Left total hip arthroplasty] Plan: [Patient is scheduled to undergo procedures as an inpatient at the [facility] on December 02, 2019 risks and complications of the pro cedure such as infection bleeding painNerve blood vessel damage weakness from problem stiffness incomplete relief of symptoms hardware failure hardware loosening wear fracture tendon ligament injury dislocation ligament inequality blood clots embolism heart attack stroke at her visit today by Dr. Gonzalez. informed consent to perform the procedure was obtained we have already previously received preoperative medical clearance from the patient's primary care provider Dr. Lorin Dominguez, as well as a preoperative CBC with differential complete metabolic panel PT/INR blood type and screen urinalysis urine culture hemoglobin A1c and a nasal swab for MRSA patient previously had her updated EKG prior to her last surgery. Patient's recent urinalysis showed a mild urinary tract infection, so during today's visit I sent a prescription for Cipro to her pharmacy to take for the next few days and we will repeat the urinalysis next Friday. I provided her with an order to obtain this test. Patient states she will most likely do her therapy in- home. She states she already has a handicap placard for her car and also has a hip kit from her previous surgery. She will bring her walker to the hospital on the day of surgery. I again went over the discharge planning prescriptions that she will be given an total hip precautions. Patient verbalized understanding of information) visit thanks for the care she is received and states she has questions or concerns should arise prior to her surgery date she will contact clinic accordingly.] Allergies Allergy/AdvReac Type Severity Reaction Status Date / Time No Known Allergies Allergy Unknown Verified 11/19/19 10:59 Home Medications Home Medications Medication Instructions Recorded Confirmed Type allopurinol 300 mg PO QAM 07/13/19 11/19/19 History amlodipine 5 mg PO HS 07/13/19 11/19/19 History celecoxib [Celebrex] 100 mg PO BID PRN 07/13/19 11/19/19 History losartan-hydrochlorothiazide 1 tab PO QAM 07/13/19 11/19/19 History metoprolol succinate 100 mg PO HS 07/13/19 11/19/19 History multivitamin 1 tab PO QAM 07/13/19 11/19/19 History omeprazole 40 mg PO QAM 07/13/19 11/19/19 History aspirin [Aspir-81] 81 mg PO QAM 11/19/19 11/19/19 History cholecalciferol (vitamin D3) 1,000 unit PO QAM 11/19/19 11/19/19 History [Vitamin D3] Past Med/Surg History Medical History Depression GERD (gastroesophageal reflux disease) controlled Gout Hyperlipidemia Hypertension Osteoarthritis Surgical History History of appendectomy History of cataract surgery R/L History of cholecystectomy History of colonoscopy History of hysterectomy TOTAL History of intestinal surgery History of repair of rotator cuff RIGHT History of right hip replacement Right CHRISTINE: 07/22/19: SAB x 1 at L3-L4 at [facility] History of total knee replacement LEFT Family History Brother Family hx of colon cancer Social History Preferred Language: Nigerien Communication Ability: Effective Patrol Agent Required: No Beliefs That Will Affect Care: None Current Living Situation: Family Feels Safe at Home: Yes Smoking Status: Never smoker Second Hand Exposure: Yes ( was a smoker) ; Hx Alcohol Use: No Hx Substance Use: No Review of Systems All systems reviewed & are unremarkable except as noted in HPI & below Physical Exam Physical Exam: Physical Examination: [Skin: patient skin is normal appearance with no open skin lesions or discharge Eyes: Pupils are equal reactive light accommodating extract movements are intact Throat: PosteriorOropharynx is clear with absence of edema erythema or exudate Cardiovascular exam: Patient has a regular rate and rhythm with no murmurs or gallops appreciated Lungs: Auscultation of lung patino reveals clear breath sounds throughout with no wheezing rales or rhonchi Abdomen abdomen is mildly obese nondistended nontender with normal active bowel sounds Extremities: Left hip; straight leg raise test is negative. Range of motion reveals flexion to 75 degrees, external rotation 25 degrees and internal rotation to 10 degrees. All of these movements reproduce left buttock pain. Patient has referred pain to the buttock with active AB and adduction. Vinicius test is 4 fists and positive. Patient has tenderness to palpation of the groin and has crepitation with passive range of motion. She is neurovascular intact left lower extremity Neurological exam: Cranial nerves II through XII are intact with no motor or sensory deficit Psychological/general exam: Patient is alert and oriented x3 with proper grooming and hygiene]
[~2019-12-02 06:26] MED LIST changes: -LR 500ML BOLUS, THEN 15ML/HR IV SCH; -ROPIVACAINE 0.5% HCL/PF 150 MG, BUPIVACAINE 0.5% MPF 30 ML, EPINEPHrine 0.15 MG, Ketoro... INFIL SCH; +VANCOMYCIN CONSULT ACTIVE PRN; -VANCOMYCIN HCL 1,250 MG in SODIUM CHLORIDE 0.9% 250 ML IV SCH; +VANCOMYCIN HCL 1,750 MG in SODIUM CHLORIDE 0.9% 500 ML IV SCH
[2019-12-02] MEDS: LR 500ML BOLUS, THEN 15ML/HR IV SCH ×2 (07:15→09:25)
[2019-12-02] MEDS ORDERED: MIDAZOLAM HCL 1 MG/ML 2ML VIAL ONE (09:15)
[2019-12-02] MEDS ORDERED: fentaNYL citrate 100 MCG/2 ML VIAL ONE (09:15)
--- NOTE | 2019-12-02 09:22 | History & Physical Bridge Note ---
Date of Service December 02, 2019 History & Physical Bridge Note I have examined the patient, reviewed the History & Physical and in the interval since the performance of the History & Physical I have noted the following changes of clinical significance: no changes noted
[2019-12-02] MEDS ORDERED: ORTHO JOINT ANESTHETIC ONE (09:33)
[2019-12-02] MEDS ORDERED: PROPOFOL IV EMULSION 10 MG/ML 20 ML VIAL IV ONE ×3 (10:19→11:21)
[2019-12-02] MEDS ORDERED: LIDOCAINE 2% 20 MG/ML 5 ML SYR IV ONE (10:19)
[2019-12-02] MEDS ORDERED: LIDOCAINE HCL 2% 2 ML VIAL/AMP(20MG/ML) INFIL ONE (10:19)
[2019-12-02] MEDS ORDERED: ePHEDrine sulfate 50 MG/ML SYR ONE (11:21)
[2019-12-02] MEDS: ROPIVACAINE 0.5% HCL/PF 150 MG, BUPIVACAINE 0.5% MPF 30 ML, EPINEPHrine 0.15 MG, Ketoro... INFIL SCH (11:24)
[2019-12-02] MEDS ORDERED: TRAMADOL HCL 50 MG TABLET PO PRN (11:55)
[2019-12-02] MEDS ORDERED: ONDANSETRON INJ 2 MG/ML 2 ML VIAL IV PRN (11:55)
[2019-12-02] MEDS ORDERED: NALOXONE HCL 0.4 MG/1 ML VIAL/CARP IV PRN (11:55)
[2019-12-02] MEDS ORDERED: VANCOMYCIN CONSULT ACTIVE PRN (11:55)
[2019-12-02] MEDS ORDERED: HYDROmorphone INJ 0.5 MG/0.5 ML SYR IV PRN (11:55)
[2019-12-02] MEDS ORDERED: bisacodyL 10 MG SUPP PR PRN (11:55)
[2019-12-02] MEDS ORDERED: OXYCODONE HCL IR 5 MG TAB (IMMEDIATE RELEASE) PO PRN (11:55)
[2019-12-02] MEDS ORDERED: DiphenhydrAMINE HCL 50 MG/ML VIAL IV PRN (11:55)
[2019-12-02] MEDS ORDERED: METOCLOPRAMIDE HCL INJ 5 MG/ML 2 ML VIAL IV PRN (11:55)
[2019-12-02] MEDS ORDERED: MAGNESIUM HYDROXIDE SUSP 30 ML UDC PO PRN (11:55)
[2019-12-02] MEDS ORDERED: ALUMINUM/MAGNESIUM SUSP 30 ML UDC PO PRN (11:55)
--- NOTE | 2019-12-02 11:55 | Operative Report ---
Post Operative Report Pre & Post Diagnosis Operation Date: 12/02/19 09:15 Pre-Op Diagnosis: Left Hip Osteoarthritis Post-Op Diagnosis: Left Hip Osteoarthritis I identified the patient and participated in the time-out.: Yes Procedure Operation Date: 12/02/19 09:15 Actual Procedures p Left Total Hip Arthroplasty(Left) - Sunil Gonzalez MD Surgeon Sunil Gonzalez MD Nutrition Coordinator Gil Corbett MD; Phil Cook PA-C Estimated Blood Loss 50 Findings Consistent with Post-Op Diagnosis Specimens left femoral head Complications none Disposition Accompanied Patient To Recovery: Yes Disposition: Recovery Room Description of Procedure I was present during the entire procedure assisting with retraction, wound closure and dressing application. Please see Dr. Gonzalez procedure note for specifics of the case. I attest to the content of the Intraoperative Record and any orders documented therein. Any exceptions are noted below.
--- NOTE | 2019-12-02 11:57 | Operative Report ---
DATE OF OPERATION: 12/02/2019 PREOPERATIVE DIAGNOSIS: Left hip osteoarthritis. POSTOPERATIVE DIAGNOSIS: Left hip osteoarthritis. OPERATION PERFORMED: Left total hip arthroplasty. SURGEON: Sunil Gonzalez MD. ASSISTANTS: Gil Corbett MD and Greer Cook PA-C. ESTIMATED BLOOD LOSS: 50 mL. INTRAVENOUS FLUIDS: 1500 mL of crystalloid. SPECIMENS: Femoral head. COMPLICATIONS: None. IMPLANTS: 1. DePuy Gription Rutledge acetabular shell, cup size 52 mm outer diameter. 2. A 6.5 x 40 mm Rutledge cancellous bone screw. 3. Rutledge Ultrex polyethylene liner neutral for a 32 mm femoral head. 4. DePuy Austin size 3 standard offset femoral stem with a 12/14 taper. 5. DePuy Articul/Piyush metal head 32 mm diameter with +9 offset. INDICATIONS: Ms. Borja is an 79-year-old female with left hip osteoarthritis that has been refractory to conservative management. She has previously undergone a right total hip arthroplasty with an excellent result. She now desires to have her left total hip replaced. I had a long discussion with her about the risks and benefits of surgery, alternatives to surgery and expected outcomes. After reviewing all these, she elected to proceed with surgery. All questions were answered. Informed consent was signed. OPERATIVE FINDINGS: Degenerative osteoarthritis of the left hip. A metal on polyethylene bearing total hip arthroplasty was performed through posterior approach. DESCRIPTION OF THE OPERATION: The patient was identified in the preoperative holding area where our surgical site was marked. She was given a spinal anesthetic and then brought back to the main operating room where she was placed on the operating room table and moved in the lateral decubitus position. Axillary roll was placed. All bony prominences were padded. Perioperative antibiotics were administered as well as tranexamic acid. She was prepped and draped in normal sterile fashion. Prior to incision, a multidisciplinary timeout was called. All in the room were in agreement. We began by making a 16 cm long incision for a posterior approach to the hip. We dissected down through the subcutaneous tissues to the level of fascia. Fascia was incised in line with the incision. Charnley bow was placed. Trochanteric bursa was excised. The piriformis and short external rotators were dissected off the posterior aspect of the hip. A box cut was made in the capsule. Femoral head was dislocated. The femoral neck cut was made at 12 mm, which was our preoperative template. We then removed the femoral head and sent it for permanent section. The acetabulum was then exposed. The labrum was sharply excised. The contents of the cotyloid fossa were removed with electrocautery. We then began reaming with a size 44 mm reamer. This was used to medialize her down to the medial wall. We then sequentially reamed up all the way to a size 52 mm reamer, which gave us good healthy bleeding cancellous bone circumferentially. The acetabulum was then irrigated out with normal saline. The size 52 outer diameter Rutledge Gription cup was opened up and impacted into position with 45 degrees of lateral opening and 25 degrees of anteversion. A single cancellous bone screw was placed up in the ilium measuring 40 mm in length. Excellent fixation was obtained. Next, the polyethylene liner was placed and impacted into position. The locking mechanism was checked to ensure that it had engaged, which it had. We then exposed the femoral neck and prepared the femur. The lateral neck was removed with a box osteotome. The intramedullary drill guide was used followed by the lateralizing reamer. We then reamed her all the way up to a size 3 Austin femoral stem. We broached her all the way up to a size 3 that sat at the level of our femoral neck cut. This had excellent torsional stability. We then trialled it with a standard offset neck and a +5 offset head. The hip was atraumatically reduced. Her shuck test was just slightly loose and her leg lengths were just a little bit short compared to what she was preoperatively. Therefore, we redislocated the hip and switched her out to the +9 head, which is what she has on the other side. The hip was then again reduced. Now, her leg lengths were symmetric. Her shuck test was appropriate. She was stable in the sleeper position. She had no impingement in external rotation and extension. At 90 degrees of hip flexion, she could be internally rotated 50 degrees before leaving out of the cup. I was very happy with the stability exam. Therefore, removed the femoral trial components. The femoral canal was irrigated and dried. The real size 3 standard offset Austin femoral stem was then impacted down into position. It sat at the same level as the broach. Therefore, we opened up the +9 metal femoral head 32 mm diameter, and impacted it onto the trunnion. The hip was then atraumatically reduced. The wound was irrigated with copious amounts of dilute Betadine solution. The periarticular injection was placed. We then began to close. The piriformis and short external rotators were repaired as well as the posterior capsule using #2 Vicryl sutures through bone tunnels in the posterior aspect of the greater trochanter. The fascia was run using a looped #1 PDS. The subcutaneous layer was closed with #1 PDS in running fashion. Deep dermis was closed with 2-0 Vicryl in a running fashion. Skin was closed with a ZipLine. A Silverlon dressing was placed followed by a compressive dressing. The patient was then rolled supine. Her leg lengths were rechecked and were again symmetric. We then lifted her sedation and transferred her to the recovery room in stable condition. POSTOPERATIVE COURSE: The patient will be admitted overnight to the hospital for pain control and monitoring. She will be weightbearing as tolerated with posterior hip precautions. She will be on aspirin for DVT prophylaxis. She will plan on discharging home tomorrow. I attest to the content of the Intraoperative Record and any orders documented therein. Any exception s are noted below.
[2019-12-02] MEDS ORDERED: CELECOXIB 100 MG CAP PO PRN (11:58)
--- NOTE | 2019-12-02 11:59 | Operative Report ---
Post Operative Report Pre & Post Diagnosis Operation Date: 12/02/19 09:15 Pre-Op Diagnosis: Left Hip Osteoarthritis Post-Op Diagnosis: Left Hip Osteoarthritis I identified the patient and participated in the time-out.: Yes Procedure Operation Date: 12/02/19 09:15 Actual Procedures p Left Total Hip Arthroplasty(Left) - Sunil Gonzalez MD Surgeon Sunil Gonzalez MD Hammerer Gil Corbett MD; Phil Cook PA-C Estimated Blood Loss 50 Findings Consistent with Post-Op Diagnosis Specimens left femoral head Complications none Disposition Accompanied Patient To Recovery: Yes Disposition: Recovery Room Description of Procedure Lateral decubitus, standard prep and drape, time out Left Total Hip Arthroplasty Please see Dr Gonzalez's procedure notes for specific details I was present throughout the case, assisted for wound closure and transferred the patient to PACU in stable condition I attest to the content of the Intraoperative Record and any orders documented therein. Any exceptions are noted below.
--- NOTE | 2019-12-02 12:50 | XRay Report ---
XR hip 1V LT w pelvis CLINICAL HISTORY: 79 years-old Female presenting with IN PACU - A/P PELVIS and LATERAL HIP . TECHNIQUE: Single frontal view of the pelvis and crosstable lateral view of the left hip were obtaine d. COMPARISON: 11/23/2019. FINDINGS: There has been interval postsurgical changes of total left hip arthroplasty. Expected soft tissue emp hysema. No periprosthetic fracture or lucency. No malalignment. Redemonstration of the total right hi p arthroplasty. Remainder of the visualized pelvis intact. IMPRESSION: Expected postsurgical appearance status post total left hip arthroplasty. ACT 112: Negative or not required by law. Electronically signed by: Sunil Ross M.D. 12/02/2019 12:49 PM
[2019-12-02] MEDS ORDERED: ATROPINE SULFATE 0.1 MG/ML 10ML SYR IV PRN (12:51)
[2019-12-02] MEDS ORDERED: ePHEDrine sulfate 50 MG/ML AMP IV PRN (12:51)
--- NOTE | 2019-12-02 12:52 | Anesthesiology Progress Note ---
Date of Service December 02, 2019 Anesthesia Post Procedure Vital Signs Vital Signs: Temp Pulse Pulse Resp BP Pulse Ox 12/02/19 12:45 36.6 C 77 14 124/69 95 12/02/19 12:35 36.6 C 84 14 128/68 95 12/02/19 12:25 36.6 C 80 14 121/49 L 93 12/02/19 12:15 82 14 126/67 93 12/02/19 12:05 79 24 111/56 L 97 12/02/19 11:55 36.5 C 79 24 106/60 97 12/02/19 07:40 36.6 C 78 18 152/71 H 96 Pain Intensity Left Hip: Pain Intensity: 7 Transfer of Care Handoff Completed per policy Notes Mental Status: alert / awake / arousable Patient Amnestic to Procedure: Yes Nausea / Vomiting: adequately controlled Pain: adequately controlled Airway Patency, RR, SpO2: stable & adequate BP & HR: stable & adequate Hydration State: stable & adequate Anesthetic Complications: no major complications apparent
[2019-12-02] MEDS: SODIUM CHLORIDE 0.9% 1000ML 1,000 ML IV SCH (14:22)
[2019-12-02] MEDS: KETOROLAC TROMETHAMINE 15 MG/ML VIAL IV SCH ×2 (14:23→19:44)
[2019-12-02] MEDS: ACETAMINOPHEN 500 MG TAB PO SCH ×2 (14:23→21:11)
[2019-12-02] MEDS: CHECK SCOPOLAMINE PATCH PLACEMENT SCH (15:59)
[2019-12-02] MEDS ORDERED: TRANEXAMIC ACID / 0.7% NACL 1,000 MG/100 ML BAG IV SCH (18:00)
[2019-12-02] MEDS: CEFAZOLIN 2000MG 2,000 MG/15 ML SYR IV SCH (18:35)
[2019-12-02] MEDS ORDERED: VANCOMYCIN HCL 1,250 MG in SODIUM CHLORIDE 0.9% 250 ML IV SCH (19:00)
[2019-12-02] MEDS ORDERED: METOPROLOL SUCC 50MG EXT REL TAB PO SCH (21:00)
[2019-12-02] MEDS ORDERED: SENNA 8.6 MG TAB PO SCH (21:00)
[2019-12-02] MEDS ORDERED: AMLODIPINE BESYLATE 5 MG TAB PO SCH (21:00)
[2019-12-02] MEDS: DOCUSATE SODIUM 100 MG CAP PO SCH (21:11)
[2019-12-02] MEDS: ASPIRIN 81 MG ECTAB PO SCH (21:11)
[2019-12-03] MEDS: CEFAZOLIN 2000MG 2,000 MG/15 ML SYR IV SCH (01:02)
[2019-12-03] MEDS: CHECK SCOPOLAMINE PATCH PLACEMENT SCH (01:03)
[2019-12-03] MEDS: KETOROLAC TROMETHAMINE 15 MG/ML VIAL IV SCH ×2 (01:03→09:06)
[2019-12-03] MEDS: SODIUM CHLORIDE 0.9% 1000ML 1,000 ML IV SCH (02:32)
[2019-12-03] MEDS: ROPIVACAINE 0.5% HCL/PF 150 MG, BUPIVACAINE 0.5% MPF 30 ML, EPINEPHrine 0.15 MG, Ketoro... INFIL SCH (05:09)
[2019-12-03] MEDS: ACETAMINOPHEN 500 MG TAB PO SCH (05:28)
[2019-12-03 06:09] LABS: Basophils # (auto) 0.01 K/uL (0-0.2); Basophils % (auto) 0.1 %; Hematocrit (blood only) 35.3 % (37-47); Hemoglobin 11.7 g/dL (12.0-16.0); Immature Granulocytes # (auto) 0.04 K/uL (0.00-0.02); Immature Granulocytes % (auto) 0.2 %; Lymphocytes # (auto) 1.04 K/uL (1.2-3.4); Lymphocytes % (auto) 5.8 %; Mean Corpuscular Hemoglobin 28.7 pg (25-34); Mean Corpuscular Hgb Conc 33.1 g/dL (32-36); Mean Corpuscular Volume 86.5 fL (80-100); Mean Platelet Volume 9.3 fL (7.4-10.4); Monocytes # (auto) 1.03 K/uL (0.11-0.59); Monocytes % (auto) 5.8 %; Neutrophils # (auto) 15.76 K/uL (1.4-6.5); Neutrophils % (auto) 88.1 %; Platelet Count 288 K/uL (130-400); RDW Coefficient of Variation 14.9 % (11.5-14.5); RDW Standard Deviation 47.9 fL (36.4-46.3); Red Blood Count 4.08 M/uL (4.2-5.4); White Blood Count 17.88 K/uL (4.8-10.8)
[2019-12-03 06:46] LABS: BUN Creatinine Ratio 17.6 (10-20); Calcium 8.6 mg/dl (8.5-10.1); Creatinine Clr Calc Pharmacy 45.4 ml/min; Est GFR (African American) 62.7; Est GFR (Non-African American) 54.1; Potassium 4.1 mmol/L (3.5-5.1)
[2019-12-03] MEDS ORDERED: dexAMETHasone 4 MG TAB PO SCH (08:00)
--- NOTE | 2019-12-03 08:14 | Anesthesiology Progress Note ---
Date of Service December 03, 2019 Anesthesia Post Procedure Vital Signs Vital Signs: Temp Pulse Pulse Resp BP Pulse Ox 12/03/19 07:25 36.4 C L 77 20 125/75 92 12/03/19 03:02 36.5 C 94 H 20 138/71 93 12/02/19 22:05 36.4 C L 76 16 137/76 94 12/02/19 19:48 36.4 C L 65 16 145/73 H 97 12/02/19 16:30 36.3 C L 74 16 113/70 94 12/02/19 15:20 75 15 133/75 92 12/02/19 14:20 36.4 C L 77 16 164/89 H 95 12/02/19 13:45 16 122/71 96 12/02/19 12:55 36.6 C 90 14 108/64 95 12/02/19 12:45 36.6 C 77 14 124/69 95 12/02/19 12:35 36.6 C 84 14 128/68 95 12/02/19 12:25 36.6 C 80 14 121/49 L 93 12/02/19 12:15 82 14 126/67 93 12/02/19 12:05 79 24 111/56 L 97 12/02/19 11:55 36.5 C 79 24 106/60 97 Pain Intensity Left Hip: Pain Intensity: 2 Notes Mental Status: alert / awake / arousable and participated in evaluation Patient Amnestic to Procedure: Yes Nausea / Vomiting: adequately controlled Pain: adequately controlled Airway Patency, RR, SpO2: stable & adequate BP & HR: stable & adequate Hydration State: stable & adequate Neuraxial Anesthesia: was administered and sensory block resolved Anesthetic Complications: no major complications apparent and Pt Satisfied with anesthetic care
[2019-12-03] MEDS ORDERED: MULTIVITAMIN TAB PO SCH ×2 (09:00)
[2019-12-03] MEDS ORDERED: CHOLECALCIFEROL 1,000 UNITS 25 MCG TAB PO SCH (09:00)
[2019-12-03] MEDS ORDERED: ASPIRIN 81 MG ECTAB PO SCH (09:00)
[2019-12-03] MEDS ORDERED: PANTOprazole 40 MG TAB PO SCH (09:00)
[2019-12-03] MEDS ORDERED: LOSARTAN/HCTZ 50/12.5MG TAB PO SCH (09:00)
[2019-12-03] MEDS ORDERED: allopurinoL 300 MG TAB PO SCH (09:00)
[2019-12-03] MEDS: ASPIRIN 81 MG ECTAB PO SCH (09:06)
[2019-12-03] MEDS: DOCUSATE SODIUM 100 MG CAP PO SCH (09:07)
--- NOTE | 2019-12-03 11:07 | Orthopedic Progress Note ---
Date of Service December 03, 2019 Assessment & Plan (1) S/P total hip arthroplasty: WBAT with walker assistance Silverlon changed. Keep in place Ice with EZ wrap Total hip precautions DVT prophy with Aspirin and TEDs Abduction pillow use x 6 wks Pain control with PO meds In home PT Follow up at [facility] as previously scheduled With questions call Subjective This 79 yo F is day 1 s/p left total hip arthroplasty. She is sitting in her bedside chair completely dressed stating that she is ready to go home. Patient denies hip pain, CP, SOB, nausea, vomiting, fever, chills, sweats or lethargy. She did very well with PT/OT this AM. Her plan is to go home [facility] with in home therapy/nursing. Review of Systems Review of Systems: All systems reviewed & are unremarkable except as noted in HPI & below Physical Exam Physical Exam: Left Hip: Silverlon was saturated so a new one was placed. Wound looked good with no active seeping. Patient is able to depict light sensation to touch circumferentially around incision. Able to perform SLRT. Knee ROM 0-90. No pain with log roll, light passive internal/external rotation, or with passive abd/adduction. Able to actively dorsi/plantar flex foot. NV intact. Calf soft and supple. Results & Data Vital Signs (Past 12 Hours) Vital Signs Temp Pulse Pulse Resp BP Pulse Ox 12/03/19 07:25 36.4 C L 77 20 125/75 92 12/03/19 03:02 36.5 C 94 H 20 138/71 93 Laboratory Results 12/03/19 12/03/19 Range/Units 05:14 05:14 WBC 17.88 H (4.8-10.8) K/uL RBC 4.08 L (4.2-5.4) M/uL Hgb 11.7 L (12.0-16.0) g/dL Hct 35.3 L (37-47) % MCV 86.5 (80-100) fL MCH 28.7 (25-34) pg MCHC 33.1 (32-36) g/dL RDW Std Deviation 47.9 H (36.4-46.3) fL RDW Coeff of Nicky 14.9 H (11.5-14.5) % Plt Count 288 (130-400) K/uL MPV 9.3 (7.4-10.4) fL Immature Gran % (Auto) 0.2 % Neut % (Auto) 88.1 % Lymph % (Auto) 5.8 % Don[place]han % (Auto) 5.8 % Eos % (Auto) 0.0 % Baso % (Auto) 0.1 % Immature Gran # (Auto) 0.04 H (0.00-0.02) K/uL Neut # (Auto) 15.76 H (1.4-6.5) K/uL Lymph # (Auto) 1.04 L (1.2-3.4) K/uL [place]han # (Auto) 1.03 H (0.11-0.59) K/uL Eos # (Auto) 0.00 (0-0.5) K/uL Baso # (Auto) 0.01 (0-0.2) K/uL Sodium 141 (136-145) mmol/L Potassium 4.1 (3.5-5.1) mmol/L Chloride 107 (98-107) mmol/L Carbon Dioxide 27 (21-32) mmol/L Anion Gap 7.0 (3-11) BUN 17 (7-18) mg/dl Creatinine 0.98 (0.6-1.2) mg/dl Est Cr Clr Drug Dosing 45.4 ml/min Est GFR ( Amer) 62.7 Est GFR (Non-Af Amer) 54.1 BUN/Creatinine Ratio 17.6 (10-20) Glucose 156 H (70-99) mg/dl Calcium 8.6 (8.5-10.1) mg/dl Specimen Hemolysis
--- NOTE | 2019-12-03 11:10 | Discharge Summary ---
Date of Service December 03, 2019 Admission HPI Per Admitting Provider History of Present Illness: This 79-year-old female presents to the clinic today for her preoperative history and physical. Patient has a longstanding history of bilateral hip pain. She underwent right total hip arthroplasty in July 2019 and has been doing well since. Over the past several months she has noticed an increase in the left hip hip and is failed conservative options. She states that the pain affects her gait, her ability to bend at the waist, she has difficulty putting on shoes or socks and feels that it is affecting her activities of daily living. Past History: Past medical history; hypertension, gout, gastroesophageal reflux Past surgical history; right total hip arthroplasty, left total knee arthroplasty, hysterectomy, cholecystectomy, right rotator cuff repair, small bowel resection, bilateral cataract removal and colonoscopy Family History: [Heart disease and cancer] Review of Systems: [Unremarkable except for those things stated in the HPI] Known Allergies to Medications: [Patient has no known drug allergies] Medication List Active Medications Ordered amLODIPine: 1 tab, PO, Daily. cholecalciferol: Start: 11/19/19 9:21:00 EST. ciprofloxacin: 1 tab, PO, tid, for 3 day, 9 tab, 0 Refill(s). hydroCHLOROthiazide-losartan: Start: 05/21/19 10:21:00 EDT. metoprolol: 1 tab, PO, Daily. omeprazole: Start: 05/21/19 10:21:00 EDT. omeprazole: Start: 11/19/19 9:21:00 EST. Medications Inactivated in the Last 72 Hours No medications found. Social History: [Negative for alcohol tobacco or illicit drug use Vital signs: Weight 84.3 kg Height 158.5 cm Blood pressure 142/78 Pulse 70 Oxygen saturation 98%] Diagnosis: [Left hip osteoarthritis] Procedure: [Left total hip arthroplasty] Plan: [Patient is scheduled to undergo procedures as an inpatient at the [facility] on December 02, 2019 risks and complications of the procedure such as infection bleeding painNerve blood vessel damage weakness from problem stiffness incomplete relief of symptoms hardware failure hardware loosening wear fracture tendon ligament injury dislocation ligament inequality blood clots embolism heart attack stroke at her visit today by Dr. Gonzalez. informed consent to perform the procedure was obtained we have already previously received preoperative medical clearance from the patient's primary care provider Dr. Lorin Dominguez, as well as a preoperative CBC with differential complete metabolic panel PT/INR blood type and screen urinalysis urine culture hemoglobin A1c and a nasal swab for MRSA patient previously had her updated EKG prior to her last surgery. Patient's recent urinalysis showed a mild urinary tract infection, so during today's visit I sent a prescription for Cipro to her pharmacy to take for the next few days and we will repeat the urinalysis next Friday. I provided her with an order to obtain this test. Patient states she will most likely do her therapy in- home. She states she already has a handicap placard for her car and also has a hip kit from her previous surgery. She will bring her walker to the hospital on the day of surg keyla. I again went over the discharge planning prescriptions that she will be given an total hip precautions. Patient verbalized understanding of information) visit thanks for the care she is received and states she has questions or concerns should arise prior to her surgery date she will contact clinic accordingly.] Admission Exam Per Admitting Provider Physical Examination: [Skin: patient skin is normal appearance with no open skin lesions or discharge Eyes: Pupils are equal reactive light accommodating extract movements are intact Throat: PosteriorOropharynx is clear with absence of edema erythema or exudate Cardiovascular exam: Patient has a regular rate and rhythm with no murmurs or gallops appreciated Lungs: Auscultation of lung patino reveals clear breath sounds throughout with no wheezing rales or rhonchi Abdomen abdomen is mildly obese nondistended nontender with normal active bowel sounds Extremities: Left hip; straight leg raise test is negative. Range of motion reveals flexion to 75 degrees, external rotation 25 degrees and internal rotation to 10 degrees. All of these movements reproduce left buttock pain. Patient has referred pain to the buttock with active AB and adduction. Vinicius test is 4 fists and positive. Patient has tenderness to palpation of the groin and has crepitation with passive range of motion. She is neurovascular intact left lower extremity Neurological exam: Cranial nerves II through XII are intact with no motor or sensory deficit Psychological/general exam: Patient is alert and oriented x3 with proper grooming and hygiene] Principal Diagnosis Left Hip Osteoarthritis Discharge Exam Left Hip: Silverlon was saturated so a new one was placed. Wound looked good with no active seeping. Patient is able to depict light sensation to touch circumferentially around incision. Able to perform SLRT. Knee ROM 0-90. No pain with log roll, light passive internal/external rotation, or with passive abd/adduction. Able to actively dorsi/plantar flex foot. NV intact. Calf soft and supple. Discharge Data Allergies Allergy/AdvReac Type Severity Reaction Status Date / Time No Known Allergies Allergy Unknown Verified 12/02/19 07:31 Consultations 12/03/19 08:00 Consult Case Management - Discharge Planning Routine Procedures Performed Operation Date: 12/02/19 09:15 Actual Procedures p Left Total Hip Arthroplasty(Left) - Sunil Gonzalez MD Hospital Course (1) S/P total hip arthroplasty: Patient did very well overnight and this AM w/o complication. Her Silverlon was saturated so I changed it this AM. She states that she is ready to be discharged now and is set up with in home health services. WBAT with walker assistance Silverlon changed. Keep in place Ice with EZ wrap Total hip precautions DVT prophy with Aspirin and TEDs Abduction pillow use x 6 wks Pain control with PO meds In home PT Follow up at [facility] as previously scheduled With questions call Total Time Total Time Spent Total Time Spent (In Minutes): 20 Total Time Includes: Examination of the Patient, Discharge Planning, Medication Reconciliation and Communication With Other Providers Discharge Plan Discharge Items Patient Disposition: Home - Home Health Services Reason For Visit: Left Hip Osteoarthritis Discharge Diagnosis: Left Hip Osteoarthritis Activity: As commented below Lifting: None Bathing: Keep incision dry Bathing Comment: May shower tomorrow Sexual Activity: Wait until after follow-up appointment Exercise/Sports: Wait until after follow-up appointment Driving/Machine Use: No driving until cleared by wood flooring specialist Weightbearing: Left weightbearing Weightbearing Comment: as tolerated with walker assistance Non-emergency contact: Primary Care Provider Call non-emergency contact if: you have any medication questions, your pain is not controlled, your temperature is above 101.5, your wound has increased drainage and your wound pain has increased Follow-up/Referrals: Lorin Dominguez MD [Primary Care Provider] - Diet: Regular Addtl Attending Provider Instructions: Post-operative Instructions Dear Patient and Family/Friends, Before you are discharged from the hospital, it is important to know what to expect when you get home after surgery. To that end, we have created this sheet of discharge instructions which covers many commonly asked questions. Make sure you go through this sheet in its entirety with your nurse before you are discharged. Please note that we will go over the specifics of your surgery and recovery when you return for your first post-operative visit. Sincerely, Dr. Gonzalez Medications 1. Oxycodone 5 mg: Take 1-2 tabs by mouth every 4-6 hrs as needed for pain. A prescription will be sent to your pharmacy for this mediation. Total 30 tablets. 2. Celebrex 100 mg: Resume your previous Celebrex dosage for inflammation relief for 30 days post operatively. A new prescription will be sent to your pharmacy. 3. Aspirin 81 mg: take 1 tab twice daily for 30 days post operatively for prevention of blood clots. Please purchase this medication. 4. Extra Strength Tylenol 500 mg: Take 2 tabs every 6-8 hours as needed for pain for 30 days post operatively. Please purchase this medication. Pain Expect to be in a fair amount of pain after surgery. Remember, our goal is not to eliminate your pain, but to make it tolerable. It is a good idea to stay ahead of your pain by taking the medications you were prescribed once you get home. Typically, the pain starts improving 3-7 days after surgery. You should start weaning off the narcotic pain medication (oxycodone, hydrocodone, hydromorphone, morphine) as soon as your pain improves. Please call our office if your pain is not adequately controlled. Ice Ice your operative site at least 5 times a day for 15-30 minutes at a time. Make sure you have a thin cloth between the ice or cooling unit and your skin to prevent nathan bite. This is especially important if you received a nerve block. Continue icing your operative site for the first 5-7 days after surgery, then as needed. Diet/Nausea/Vomiting Start by drinking clear liquids and eating crackers. If you can tolerate this, then you may resume your normal diet. If you feel nauseated or vomit, take Zofran/ondansetron (if prescribed). Please call our office if you have intractable nausea or vomiting, or, if after hours, you may go to the Emergency Room for help. Constipation Constipation is a common side effect of narcotic pain medication. If you have not had a bowel movement within 2 days after surgery, we recommend purchasing an over the counter laxative such as Milk of Magnesia, Dulcolax, or Miralax from a local pharmacy, and taking it as instructed. Call our clinic if any questions. Nerve block The anesthesia team sometimes places a nerve block to help with post-operative pain control. This results in significant numbness and inability to move the extremity. The nerve block usually wears off in 8-12 hours, but sometimes can last up to 24 hours. Please call our office if you are still unable to move your extremity after 24 hours, unless you received a pain pump to take home. Nerve blocks typically wear off quickly, so start taking pain medication as soon as you start feeling soreness near your surgical site. Weight bearing and Range of Motion. Do not bear any weight through your operative extremity immediately after surgery. If you had upper extremity surgery, do not lift anything with that arm. If you are in a knee brace, keep it locked in place until your follow-up. We will discuss your weight bearing, range of motion, and lifting restrictions in detail at your first post-operative appointment. Continuous Passive Motion (CPM) Machine If you were prescribed a CPM machine, it will start after your first post- operative appointment, at which time we will give you instructions on the range of motion settings and duration of treatment Physical therapy You will be given a prescription for physical therapy or occupational therapy at your first post-operative appointment. Typically, patients start therapy within 1 week of surgery Wound care and showering We will inspect your wound at your first post-operative visit, and may do a dressing change at that time. Most patients will be in a water-proof dressing that is removed 14 days after surgery. It is normal to see some dried blood on the dressing. Do not remove your dressing, paper strips or sutures yourself unless you are given permission. Showering is allowed the day after surgery. Do not scrub or remove any dressings. The wound should not be submerged underwater (i.e. in a bathtub or pool) until 4 weeks after surgery MANOHAR stockings If you were given white stockings, these are to be worn at all times except to shower (on both legs) for the first 2 weeks after surgery. Driving You may not drive while taking narcotic pain medication or while in a cast, splint, sling or brace. You, the patient, need to make the final determination about when you are safe to drive, however, the earliest you may consider driving after surgery is below: Hand/Wrist/Elbow Surgery: 3 days Shoulder Surgery: 2 weeks Hip,/Knee/Ankle Surgery: 4 weeks Fracture repair: 6 weeks Return to Work Your return to work depends on what surgery was done and what type of work you do. Please bring any paperwork your employer needs completed to your first post-operative visit. Also, bring a description of your job duties, as this helps us to understand what risks you may face at work. Travel Avoid long distance travel (greater than 1 hour) in airplanes and cars for the first 6 weeks after surgery. If you must travel, you need to have a Doppler ultrasound done before you travel to rule out a blood clot in your legs. Follow-up You should have a follow-up appointment already scheduled 1-2 days after surgery. If not, please contact our office to make this appointment before you leave the hospital. When to call the office It is normal to have swelling and bruising in the limb that was operated on. This will improve with time. It is also normal to have fevers for the first 2 days after surgery. Reasons you should call your doctor include: Uncontrolled pain; Nausea, vomiting, or constipation that does not improve with medication; Fevers over 101.5, chills, sweats; Drainage or bleeding from the wound; Foul odor; Spreading areas of redness; Any other concerns Pending Studies at Discharge: No Stand-Alone Forms: My [facility] Medications and DC Order Prescriptions: New oxycodone 5 mg tablet See Rx Instructions .ROUTE .COMPLEX PRN (Reason: pain) Qty: 30 RF: 0 celecoxib [Celebrex] 100 mg capsule 100 mg PO BID Qty: 60 RF: 1 Continued multivitamin Tablet 1 tab PO QAM RF: 0 metoprolol succinate 100 mg Tablet Extended Release 24 Hr 100 mg PO HS RF: 0 losartan-hydrochlorothiazide 100-25 mg Tablet 1 tab PO QAM RF: 0 allopurinol 300 mg Tablet 300 mg PO QAM RF: 0 omeprazole 40 mg Capsule,Delayed Release(Dr/Ec) 40 mg PO QAM RF: 0 celecoxib [Celebrex] 100 mg Capsule 100 mg PO BID PRN (Reason: Pain) RF: 0 amlodipine 5 mg Tablet 5 mg PO HS RF: 0 cholecalciferol (vitamin D3) [Vitamin D3] 1,000 unit Tablet,Chewable 1,000 unit PO QAM RF: 0 Changed aspirin [Aspir-81] 81 mg tablet,delayed release (DR/EC) 81 mg PO BID Qty: 0 RF: 0 Discharge Orders: Discharge Order (Routine); Ordered 12/03/19 Ordered By: Garo Rosa/Other Patient Handouts: A1C Admission Data Admit Date/Time: 12/02/19 11:55 Attending Provider: Sunil Gonzalez Admit Provider: Sunil Gonzalez Primary Care Provider: Lorin Dominguez
[2019-12-03] MEDS ORDERED: CeleBREX 200 MG CAP PO SCH (21:00)
== END 2019-12-03 12:07 | disposition home health service (06) | DRG 470 ==
LOC: ASU 06:26 → 3E 11:55

== ENCOUNTER 2020-11-27 23:31 | Observation (INO) ==
[2020-11-27] MEDS ORDERED: fentaNYL citrate 100 MCG/2 ML VIAL ONE (23:43)
[2020-11-27] MEDS ORDERED: METOPROLOL TARTRATE 1 MG/ML VIAL IV ONE (23:43)
[2020-11-27] MEDS ORDERED: METOPROLOL TARTRATE 1 MG/ML VIAL IV STA ×2 (23:53→23:57)
[2020-11-27] MEDS ORDERED: fentaNYL citrate 100 MCG/2 ML VIAL IV STA (23:53)
[2020-11-28 00:01] LABS: Basophils # (auto) 0.03 K/uL (0-0.2); Basophils % (auto) 0.3 %; Eosinophils # (auto) 0.28 K/uL (0-0.5); Eosinophils % (auto) 2.7 %; Hematocrit (blood only) 43.6 % (37-47); Hemoglobin 14.7 g/dL (12.0-16.0); Immature Granulocytes # (auto) 0.01 K/uL (0.00-0.02); Immature Granulocytes % (auto) 0.1 %; Lymphocytes # (auto) 4.09 K/uL (1.2-3.4); Lymphocytes % (auto) 39.8 %; Mean Corpuscular Hemoglobin 29.9 pg (25-34); Mean Corpuscular Hgb Conc 33.7 g/dL (32-36); Mean Corpuscular Volume 88.6 fL (80-100); Mean Platelet Volume 9.6 fL (7.4-10.4); Monocytes # (auto) 0.89 K/uL (0.11-0.59); Monocytes % (auto) 8.7 %; Neutrophils # (auto) 4.98 K/uL (1.4-6.5); Neutrophils % (auto) 48.4 %; Platelet Count 357 K/uL (130-400); RDW Coefficient of Variation 14.2 % (11.5-14.5); RDW Standard Deviation 46.3 fL (36.4-46.3); Red Blood Count 4.92 M/uL (4.2-5.4); White Blood Count 10.28 K/uL (4.8-10.8)
[2020-11-28] MEDS ORDERED: HEPARIN (PORCINE) 1000 UNIT/ML 10 ML (CATH LAB USE ONLY) ONE ×2 (00:02→01:04)
[2020-11-28] MEDS ORDERED: niCARdipine HCL INJ 2.5 MG/ML 10 ML AMP ONE (00:03)
[2020-11-28] MEDS ORDERED: fentaNYL citrate 100 MCG/2 ML VIAL ONE (00:03)
[2020-11-28] MEDS ORDERED: MIDAZOLAM HCL 1 MG/ML 2ML VIAL ONE (00:03)
[2020-11-28] MEDS ORDERED: NITROGLYCERIN/D5W 100MCG/ML 20ML SYR ONE (00:03)
[2020-11-28 00:09] LABS: Calcium 10.4 mg/dl (8.5-10.1); Creatinine Clr Calc Pharmacy 45.8 ml/min; Est GFR (Non-African American) 51.8; Partial Thromboplastin Ratio 0.9; Partial Thromboplastin Time 25.7 Seconds (21.0-31.0); Potassium 3.6 mmol/L (3.5-5.1); Prothrombin Time 10.3 Seconds (9.0-12.0)
--- NOTE | 2020-11-28 00:14 | Emergency Department Note ---
Impression & Plan ST elevation myocardial infarction (STEMI) ED Provider Note NAME: PACHECO CUMMINS AGE: 80 SEX: F ARRIVES VIA: Ambulance INFORMANT: Patient EMS ED PROVIDER(S): Cait Granados DO CHIEF COMPLAINT: Chest pain PLAN: Disposition: Patient taken emergently to the Chief Station Engineer Condition: Stable MEDICAL DECISION MAKING: This is an 80-year-old female patient with history of hypertension who presents to the emergency department complaining of left-sided chest discomfort that radiates to the left shoulder. EKG shows evidence of a STEMI. For EMS, the patient was having some brief runs of ventricular tachycardia. On presentation here to the emergency department, the patient rated her pain 8/10. She was given a dose of IV fentanyl which brought her pain down to the 2 /10. She was given 2 doses of IV Lopressor to control her blood pressure and lower her heart rate. The patient remained hemodynamically stable here in the emergency department. Patient will go to the cardiac Chief Station Engineer with Dr. Sellers. Triage Nursing notes reviewed and agree them. Additional history obtained from EMS and the patient's daughter Prior medical records reviewed Vital Signs: reviewed and remarkable for hypertension and tachycardia Differential diagnosis: STEMI, NSTEMI, aortic dissection ER treatment provided: IV fentanyl, IV Lopressor x2 Diagnostics interpreted by me: ECG: Sinus tachycardia at a rate of 103 with occasional PVCs. There is ST segment elevation in leads V2, V3, V4, V5, V6, lead I and aVL. This is consistent with a STEMI Cardiac Monitoring: Sinus tachycardia at 108 Laboratory studies: See below Imaging studies: As per my interpretation Portable chest x-ray: Narrow mediastinum with no obvious pulmonary pathology or pneumothorax. HPI: 80/F arrives for evaluation of left-sided chest pain. This is an 80-year-old female patient who was sitting and watching TV around 10 PM this evening when she developed some left-sided chest discomfort that radiated to her left shoulder. The patient states that she had a similar episode last evening but that it was very short-lived and resolved quickly. Tonight, however, the pain persisted and she developed some shortness of breath. EMS was called and she was transported here. The patient has no cardiac history. ROS: See above HPI for pertinent positives & negatives. A total of 10 systems reviewed and were otherwise negative. PAST MEDICAL HISTORY:Hypertension, GERD, gout PAST SURGICAL HISTORY:Right hip replacement, left knee replacement, hysterectomy, cholecystectomy, right rotator cuff repair, small bowel resection, bilateral cataracts FAMILY HISTORY:See Below SOCIAL HISTORY:Patient lives with her son; she does not smoke or drink alcohol HOME MEDICATIONS:See list ALLERGIES:None VITALS:See Below PHYSICAL EXAMINATION: HEENT: Head - normocephalic and atraumatic Pupils are equal, round, and react joanne to light. Extraocular eye muscles are intact, and sclera are anicteric. Nose - moist nasal mucosa without discharge. Mouth - moist buccal mucosa. Oropharynx is nonerythematous and there is no tonsillar exudate or edema noted. Neck: Supple; no JVD or cervical lymphadenopathy Heart: Regular rate and rhythm. There is a normal S1 and S2 with no murmurs, clicks, or gallops appreciated. Lungs: Clear to auscultation bilaterally with no wheezes, rales, or rhonchi. Abdomen: Soft, completely nontender, nondistended, with good bowel sounds. There are no palpable pulsatile masses or hepatosplenomegaly. There is no guarding, rigidity, or rebound noted. Extremities: No evidence of cyanosis, clubbing, or edema. There are easily palpable peripheral pulses. Skin: warm and dry with good turgor and no rashes. ED COURSE: The patient was evaluated in room B1. A complete history and physical was performed. An order was placed for continuous cardiac monitoring. The patient was in a sinus tachycardia at a rate of 108. A 12-lead EKG was obtained and a heart alert was called. Laboratory studies were drawn as above. The patient was given 50 mcg of IV fentanyl for chest discomfort that she rated as an 8/10. A portable chest x-ray was performed. Patient was noted to be tachycardic and hypertensive. She was given 5 mg of IV Lopressor. Patient's chest discomfort came down to a 4/10 Patient's heart rate came down to around 98 but blood pressure remained elevated. She was given a second 5 mg dose of IV Lopressor. Upon repeat evaluation, patient's chest discomfort was a 2/10 and blood pressure and heart rate are both down at this time. I have personally spent greater than 75 minutes of critical care time in the direct management of this patient. This includes bedside care, interpretation of diagnostic studies, and testing, discussion with consultants, patient, and family members, and other required patient management activities. This 75 minutes is in excess of all separately billable procedures. Cait Granados DO Past Med/Surg History Medical History (Updated 11/28/20 @ 01:33 by Cait Granados DO) Depression GERD (gastroesophageal reflux disease) controlled Gout Hyperlipidemia Hypertension Osteoarthritis Surgical History History of appendectomy History of cataract surgery R/L History of cholecystectomy History of colonoscopy History of hysterectomy TOTAL History of intestinal surgery History of repair of rotator cuff RIGHT History of right hip replacement Right CHRISTINE: 07/22/19: SAB x 1 at L3-L4 at [facility] History of total knee replacement LEFT Family History Brother Family hx of colon cancer Social History Smoking Status: Never smoker Second Hand Exposure: Yes ( was a smoker); Hx Alcohol Use: No Hx Substance Use: No Preferred Language: Persian Communication Ability: Effective 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 Required: No Beliefs That Will Affect Care: None marital status: / Current Living Situation: Family Feels Safe at Home: Yes Assistive Devices: Walker Allergies Allergies Allergy/AdvReac Type Severity Reaction Status Date / Time No Known Allergies Allergy Unknown Verified 11/28/20 00:10 Home Meds Home Medications Medication Instructions Recorded Confirmed allopurinol 300 mg PO QAM 07/13/19 11/28/20 amlodipine 5 mg PO HS 07/13/19 11/28/20 losartan-hydrochlorothiazide 1 tab PO QAM 07/13/19 11/28/20 metoprolol succinate 100 mg PO HS 07/13/19 11/28/20 multivitamin 1 tab PO QAM 07/13/19 11/28/20 omeprazole 40 mg PO QAM 07/13/19 11/28/20 cholecalciferol (vitamin D3) 1,000 unit PO QAM 11/19/19 11/28/20 [Vitamin D3] Previous Rx's Medication Instructions Recorded aspirin [Aspir-81] 81 mg PO BID #0 tab 12/03/19 Results & Data (ED) Vital Signs Vital Signs - 24 hr 11/27/20 23:34 11/27/20 23:50 11/27/20 23:52 Temperature 36.9 C Temperature Source Oral Pulse Rate 96 H Pulse Rate [Right Finger] 99 H Respiratory Rate 20 20 Respiratory Pattern Regular Blood Pressure 165/104 H Blood Pressure [Right Arm] 189/108 H Blood Pressure Mean 124 Blood Pressure Mean [Right Arm] 135 Blood Pressure Position Sitting Blood Pressure Position [Right Arm] Sitting Pulse Oximetry 90 96 89 L Oxygen Delivery Method Room Air Nasal Cannula Room Air Oxygen Flow Rate 2 0 Sepsis Recent Fever Within 48 Hours No Sepsis New/Unexplained Change in Mental Status N/A Sepsis Action Taken by Nursing No Action Required Oxygen Flow Rate - Titration 2 Pulse Oximetry Post Tiitration 98 11/27/20 23:57 11/28/20 00:05 Temperature Temperature Source Pulse Rate 92 H Pulse Rate [Right Finger] 90 Respiratory Rate Respiratory Pattern Blood Pressure 187/103 H Blood Pressure [Right Arm] 166/105 H Blood Pressure Mean Blood Pressure Mean [Right Arm] 125 Blood Pressure Position Blood Pressure Position [Right Arm] Pulse Oximetry Oxygen Delivery Method Oxygen Flow Rate Sepsis Recent Fever Within 48 Hours Sepsis New/Unexplained Change in Mental Status Sepsis Action Taken by Nursing Oxygen Flow Rate - Titration Pulse Oximetry Post Tiitration Laboratory Data Result diagrams: 11/27/20 23:30 11/27/20 23:30 Lab Results 11/27/20 11/27/20 11/27/20 Range/Units 23:30 23:30 23:30 WBC 10.28 (4.8-10.8) K/uL RBC 4.92 (4.2-5.4) M/uL Hgb 14.7 (12.0-16.0) g/dL Hct 43.6 (37-47) % MCV 88.6 (80-100) fL MCH 29.9 (25-34) pg MCHC 33.7 (32-36) g/dL RDW Std Deviation 46.3 (36.4-46.3) fL RDW Coeff of Nicky 14.2 (11.5-14.5) % Plt Count 357 (130-400) K/uL MPV 9.6 (7.4-10.4) fL Immature Gran % (Auto) 0.1 % Neut % (Auto) 48.4 % Lymph % (Auto) 39.8 % [place] % (Auto) 8.7 % Eos % (Auto) 2.7 % Baso % (Auto) 0.3 % Neut # (Auto) 4.98 (1.4-6.5) K/uL Lymph # (Auto) 4.09 H (1.2-3.4) K/uL [place] # (Auto) 0.89 H (0.11-0.59) K/uL Eos # (Auto) 0.28 (0-0.5) K/uL Baso # (Auto) 0.03 (0-0.2) K/uL Immature Gran # (Auto) 0.01 (0.00-0.02) K/uL PT 10.3 (9.0-12.0) Seconds INR 1.0 (0.9-1.1) APTT 25.7 (21.0-31.0) Seconds PTT Ratio 0.9 Sodium 141 (136-145) mmol/L Potassium 3.6 (3.5-5.1) mmol/L Chloride 105 (98-107) mmol/L Carbon Dioxide 26 (21-32) mmol/L Anion Gap 10.0 (3-11) BUN 26 H (7-18) mg/dl Creatinine 1.01 (0.6-1.2) mg/dl Est Cr Clr Drug Dosing 45.8 ml/min Est GFR ( Amer) 60.0 Est GFR (Non-Af Amer) 51.8 BUN/Creatinine Ratio 26.0 H (10-20) Glucose 167 H (70-99) mg/dl Calcium 10.4 H (8.5-10.1) mg/dl Magnesium 2.0 (1.8-2.4) mg/dl Total Bilirubin 0.3 (0.2-1) mg/dl AST 27 (15-37) U/L ALT 42 (12-78) U/L Alkaline Phosphatase 92 (45-117) U/L Troponin I 0.164 H* (0-0.045) ng/ml Total Protein 7.7 (6.4-8.2) gm/dl Albumin 4.0 (3.4-5.0) gm/dl Globulin 3.7 (2.5-4.0) gm/dl Albumin/Globulin Ratio 1.1 (0.9-2) Lipase 119 (73-393) U/L COVID-19 Eval Order SARS-CoV-2, RNA, NAAT (NEGATIVE) 11/27/20 11/27/20 Range/Units 23:35 23:35 WBC (4.8-10.8) K/uL RBC (4.2-5.4) M/uL Hgb (12.0-16.0) g/dL Hct (37-47) % MCV (80-100) fL MCH (25-34) pg MCHC (32-36) g/dL RDW Std Deviation (36.4-46.3) fL RDW Coeff of Nicky (11.5-14.5) % Plt Count (130-400) K/uL MPV (7.4-10.4) fL Immature Gran % (Auto) % Neut % (Auto) % Lymph % (Auto) % [place] % (Auto) % Eos % (Auto) % Baso % (Auto) % Neut # (Auto) (1.4-6.5) K/uL Lymph # (Auto) (1.2-3.4) K/uL [place] # (Auto) (0.11-0.59) K/uL Eos # (Auto) (0-0.5) K/uL Baso # (Auto) (0-0.2) K/uL Immature Gran # (Auto) (0.00-0.02) K/uL PT (9.0-12.0) Seconds INR (0.9-1.1) APTT (21.0-31.0) Seconds PTT Ratio Sodium (136-145) mmol/L Potassium (3.5-5.1) mmol/L Chloride (98-107) mmol/L Carbon Dioxide (21-32) mmol/L Anion Gap (3-11) BUN (7-18) mg/dl Creatinine (0.6-1.2) mg/dl Est Cr Clr Drug Dosing ml/min Est GFR ( Amer) Est GFR (Non-Af Amer) BUN/Creatinine Ratio (10-20) Glucose (70-99) mg/dl Calcium (8.5-10.1) mg/dl Magnesium (1.8-2.4) mg/dl Total Bilirubin (0.2-1) mg/dl AST (15-37) U/L ALT (12-78) U/L Alkaline Phosphatase (45-117) U/L Troponin I (0-0.045) ng/ml Total Protein (6.4-8.2) gm/dl Albumin (3.4-5.0) gm/dl Globulin (2.5-4.0) gm/dl Albumin/Globulin Ratio (0.9-2) Lipase (73-393) U/L COVID-19 Eval [facility] SARS-CoV-2, RNA, NAAT NEGATIVE (NEGATIVE) Administered Medications Discontinued Medications Fentanyl Citrate (Fentanyl Citrate 100 Mcg/2 Ml Vial) Confirm Administered Dose 100 mcg .ROUTE .STK-MED ONE Stop: 11/27/20 23:44 Last Increment: 11/27/20 23:48 Dose: 50 mcg Documented by: [id number] Fentanyl Citrate (Fentanyl Citrate 100 Mcg/2 Ml Vial) 50 mcg IV NOW STA Stop: 11/27/20 23:54 Last Admin: 11/27/20 23:54 Dose: Not Given Documented by: [id number] Metoprolol Tartrate (Metoprolol Tartrate 1 Mg/Ml Vial) Confirm Administered Dose 5 mg IV .STK-MED ONE Stop: 11/27/20 23:44 Last Admin: 11/27/20 23:48 Dose: 5 mg Documented by: [id number] Metoprolol Tartrate (Metoprolol Tartrate 1 Mg/Ml Vial) 5 mg IV NOW STA Stop: 11/27/20 23:54 Last Admin: 11/27/20 23:54 Dose: Not Given Documented by: [id number] Metoprolol Tartrate (Metoprolol Tartrate 1 Mg/Ml Vial) 5 mg IV NOW STA Stop: 11/27/20 23:58 Last Admin: 11/27/20 23:57 Dose: 5 mg Documented by: [id number] Discharge Plan Visit Data Chief Complaint: Chest Pain Stated Complaint: chest pain ED Provider: Cait Granados Discharge Problem: ST elevation myocardial infarction (STEMI) Discharge Instructions Interventions: ED Discharge Assessment Last Done: 11/28/20 00:12 Forms Stand Alone Forms: My [facility] [place] Prescriptions Prescriptions: No Action multivitamin Tablet 1 tab PO QAM RF: 0 metoprolol succinate 100 mg Tablet Extended Release 24 Hr 100 mg PO HS RF: 0 losartan-hydrochlorothiazide 100-25 mg Tablet 1 tab PO QAM RF: 0 allopurinol 300 mg Tablet 300 mg PO QAM RF: 0 omeprazole 40 mg Capsule,Delayed Release(Dr/Ec) 40 mg PO QAM RF: 0 amlodipine 5 mg Tablet 5 mg PO HS RF: 0 cholecalciferol (vitamin D3) [Vitamin D3] 1,000 unit Tablet,Chewable 1,000 unit PO QAM RF: 0 aspirin [Aspir-81] 81 mg tablet,delayed release (DR/EC) 81 mg PO BID Qty: 0 RF: 0 Referrals Referrals: PCP,NO [Primary Care Provider] - Discharge Problem: ST elevation myocardial infarction (STEMI) Qualifiers: Involved coronary artery: unspecified coronary artery Qualified Code(s): I21.3 - ST elevation (STEMI) myocardial infarction of unspecified site
--- NOTE | 2020-11-28 00:15 | Pre Anesthesia Assessment ---
Date of Service November 28, 2020 Pre Sedation Assessment Vital Signs Temp Pulse Pulse Resp BP BP Pulse Ox 11/28/20 00:05 90 166/105 H 11/27/20 23:57 92 H 187/103 H 11/27/20 23:52 89 L 11/27/20 23:50 99 H 20 189/108 H 96 11/27/20 23:34 98.4 F 96 H 20 165/104 H 90 Cardiovascular RRR, no murmur, no edema Respiratory normal respiratory effort, lungs clear to auscultation Pre-Sedation Airway Assessment Smoking Status: Never smoker Hx Sleep Apnea: No Hx Difficult Intubation: No Short, Thick Neck: No Thyromental Distance: > or= 3.5 Finger Breadths Oral Cavity: + WNL Mallampati Class: III ASA: ASA3 Procedure Planning Contraindications for Sedation: none Current Medications Reviewed: Yes Notes The planned sedation has been discussed with the patient. Informed Consent was obtained. I have identified the patient, determined the appropriateness of sedation and have assessed the patient immediately prior to the procedure. All medicine(s) and interventions are by my order.
[2020-11-28 00:18] LABS: Albumin Globulin Ratio 1.1 (0.9-2); Bilirubin,Total 0.3 mg/dl (0.2-1); Globulin 3.7 gm/dl (2.5-4.0); Total Protein 7.7 gm/dl (6.4-8.2); Troponin I 0.164 ng/ml (0-0.045)
--- NOTE | 2020-11-28 00:19 | Cardiology Consultation ---
Date of Consultation November 28, 2020 Assessment & Plan (1) Acute NC: Presentation consistent with anterior STEMI and recommend proceeding with emergent cardiac catheterization and likely primary PCI. No apparent contraindications to procedure. Discussed risks, benefits, alternatives of procedure with patient and they are willing to proceed. Further recommendations pending findings of coronary angiography. History of Present Illness History of Present Illness 80-year-old woman here with acute chest pain and ECG concerning for acute NC. Patient seen emergently in the ED after heart alert activated upon arrival. No prior cardiac history. Cardiac risk factors include hypertension. Other medical issues include gout, vitamin D deficiency and osteoarthritis post multiple joint replacements. Chest pain began approximately 10 PM, around 1 hour prior to calling EMS. Describes 1 brief episode of chest discomfort occurring yesterday evening which resolved and was feeling normal throughout day today. Describes substernal severe pain this evening with associated nausea. Given aspirin, nitro in route without significant change. Hypertensive on arrival with systolic pressures greater than 200. Serial ECG showed anterior ST elevations and occasional PVCs. Received IV metoprolol. At time of interview chest pain down to 2 out of 10. Allergies Allergy/AdvReac Type Severity Reaction Status Date / Time No Known Allergies Allergy Unknown Verified 11/28/20 00:10 Home Medications Medication Instructions Recorded Confirmed Type allopurinol 300 mg PO QAM 07/13/19 11/28/20 History amlodipine 5 mg PO HS 07/13/19 11/28/20 History losartan-hydrochlorothiazide 1 tab PO QAM 07/13/19 11/28/20 History metoprolol succinate 100 mg PO HS 07/13/19 12/02/19 History multivitamin 1 tab PO QAM 07/13/19 11/28/20 History omeprazole 40 mg PO QAM 07/13/19 11/28/20 History cholecalciferol (vitamin D3) 1,000 unit PO QAM 11/19/19 11/28/20 History [Vitamin D3] aspirin [Aspir-81] 81 mg PO BID #0 tab 12/03/19 11/28/20 Rx Patient History Medical History (Updated 11/28/20 @ 01:33 by Cait Granados DO) Depression GERD (gastroesophageal reflux disease) controlled Gout Hyperlipidemia Hypertension Osteoarthritis Surgical History History of appendectomy History of cataract surgery R/L History of cholecystectomy History of colonoscopy History of hysterectomy TOTAL History of intestinal surgery History of repair of rotator cuff RIGHT History of right hip replacement Right CHRISTINE: 07/22/19: SAB x 1 at L3-L4 at [facility] History of total knee replacement LEFT Family History Brother Family hx of colon cancer Social History Smoking Status: Never smoker Second Hand Exposure: Yes ( was a smoker); Hx Alcohol Use: No Hx Substance Use: No Preferred Language: Kosovan Communication Ability: Effective Pest Control Supervisor Required: No Beliefs That Will Affect Care: None marital status: / Current Living Situation: Family Feels Safe at Home: Yes Assistive Devices: Walker Review of Systems Review of Systems: Not obtained in setting of emergent situation Physical Exam Physical Exam: General: Comfortable HEENT: Sclerae anicteric, Mask in place Lungs: Clear to auscultation bilaterally, no crackles or wheezes Cardiac: Regular rate and rhythm, no murmurs. Vascular: 2+ radial bilaterally Abdomen: Soft, nontender Extremities: Well perfused, no peripheral edema Neuro: Nonfocal Psych: Alert orient x3, normal affect and mood Results & Data ([facility]) Vital Signs (Past 12 Hours) Vital Signs Temp Pulse Pulse Resp BP BP Pulse Ox 11/28/20 00:05 90 166/105 H 11/27/20 23:57 92 H 187/103 H 11/27/20 23:52 89 L 11/27/20 23:50 99 H 20 189/108 H 96 11/27/20 23:34 98.4 F 96 H 20 165/104 H 90 PG Care Time/CCT Total # of Minutes Spent Total Time Spent with Patient: Total time spent is greater than 50% in coordination of care (as documented) at patient's floor/unit and/or counseling patient: Coding Level of Care Code 75801 Initial Inpt Care Lvl 3 Diagnoses Acute NC I21.9
--- NOTE | 2020-11-28 00:32 | History & Physical Report ---
Date of Service November 28, 2020 Assessment & Plan (1) Acute PA: Shaina is an 80-year-old female with a past medical history of osteoarthritis, Hypertension, hyperlipidemia who presented to the emergency department with an episode of chest pain which began 10 PM the evening of admission which was approximately 1 hour prior to being assessed by emergency medical services. She had had 1 similar episode of chest discomfort the evening prior which resolved with rest. Acute PA Patient presented with chest pain. Risk factors include hypertension, hyperlipidemia. Smoking [] Admitting EKG with anterior ST elevations with reciprocal changes Taken to [facility] emergently [] Cardiology consulted recommendations as follows: Admit to ICU for monitoring following catheterization [Aspirin/statin/Plavix/DALE/beta-funmilayo] Hypertension Continue amlodipine 5 mg p.o. at bedtime Metoprolol as above Losartan hydrochlorothiazide as above Osteoarthritis Follow clinically Gout Allopurinol Diet: Heart healthy Disposition: ICU following PCI DVT prophylaxis: Post PCI protocol as above CODE STATUS: Full code (2) Osteoarthritis of left hip: (3) Osteoarthritis of right hip: History of Present Illness Chief Complaint: Chest Pain Primary Care Provider: NO PCP Shaina is an 80-year-old female with a past medical history of osteoarthritis, Hypertension, hyperlipidemia who presented to the emergency department with an episode of chest pain which began 10 PM the evening of admission which was approximately 1 hour prior to being assessed by emergency medical services. She had had 1 similar episode of chest discomfort the evening prior which resolved with rest. She presented with severe substernal chest pain and nausea. On ER assessment she was found to have anterior ST elevations, elevated trop of 0.164, and pain not improved withinitial nitro/ASA. A heart alert was called. She was treated with fenanyl and metorpolol. She was taken for emergent cardiac catheterization. MedHx; Reviewed Medications: Reviewed Allergies: Reviewed SHx: Reviewed Code Status: [] Allergies Allergy/AdvReac Type Severity Reaction Status Date / Time No Known Allergies Allergy Unknown Verified 11/28/20 00:10 Home Medications Medication Instructions Recorded Confirmed Type allopurinol 300 mg PO QAM 07/13/19 11/28/20 History amlodipine 5 mg PO HS 07/13/19 11/28/20 History losartan-hydrochlorothiazide 1 tab PO QAM 07/13/19 11/28/20 History metoprolol succinate 100 mg PO HS 07/13/19 11/28/20 History multivitamin 1 tab PO QAM 07/13/19 11/28/20 History omeprazole 40 mg PO QAM 07/13/19 11/28/20 History cholecalciferol (vitamin D3) 1,000 unit PO QAM 11/19/19 11/28/20 History [Vitamin D3] aspirin [Aspir-81] 81 mg PO BID #0 tab 12/03/19 11/28/20 Rx Past Med/Surg History Medical History (Updated 11/28/20 @ 00:19 by Vito Sellers MD) Depression GERD (gastroesophageal reflux disease) controlled Gout Hyperlipidemia Hypertension Osteoarthritis Surgical History History of appendectomy History of cataract surgery R/L History of cholecystectomy History of colonoscopy History of hysterectomy TOTAL History of intestinal surgery History of repair of rotator cuff RIGHT History of right hip replacement Right CHRISTINE: 07/22/19: SAB x 1 at L3-L4 at [facility] History of total knee replacement LEFT Family History Brother Family hx of colon cancer Social History Smoking Status: Never smoker Second Hand Exposure: Yes ( was a smoker); Hx Alcohol Use: No Hx Substance Use: No Preferred Language: Surinamese Communication Ability: Effective Production Artist Required: No Beliefs That Will Affect Care: None marital status: / Current Living Situation: Family Feels Safe at Home: Yes Assistive Devices: Walker Results & Data Results & Data ([facility]) Vital Signs (Past 12 Hours) Vital Signs Temp Pulse Pulse Resp BP BP Pulse Ox 11/28/20 00:05 90 166/105 H 11/27/20 23:57 92 H 187/103 H 11/27/20 23:52 89 L 11/27/20 23:50 99 H 20 189/108 H 96 11/27/20 23:34 36.9 C 96 H 20 165/104 H 90
[2020-11-28] MEDS ORDERED: CLOPIDOGREL BISULFATE 300 MG TAB ONE (01:22)
--- NOTE | 2020-11-28 01:34 | Post Anesthesia Assessment ---
Date of Service November 28, 2020 Post Sedation Assessment Vital Signs Temp Pulse Pulse Resp BP BP Pulse Ox 11/28/20 00:05 90 166/105 H 11/27/20 23:57 92 H 187/103 H 11/27/20 23:52 89 L 11/27/20 23:50 99 H 20 189/108 H 96 11/27/20 23:34 98.4 F 96 H 20 165/104 H 90 Recovery Score Activity: Moves 4 extremities Respiration: Deep Breath/Cough Circulation: +/-20% PreAnes Value Consciousness: Fully Awake Oxygen Saturation: O2 needed for >90% Discharge Sedation Level of Care: Fast Track Phase II Post Sedation Plan On clinical assessment, the patient appears to have tolerated the sedation without complications. Patient is recovering as anticipated. Patient will continue to be monitored by nursing and may be discharged when sedation discharge criteria are met per below protocol. Upon Completions of procedure up to 15 minutes continue every 5 minute vital signs and the P.A.R. score; then discharge to a Phase I or Fast Track to Phase II per the following guidelines: * Discharge Patient to appropriate Phase II area if PAR is 8 or greater or return to pre- procedure baseline. The post - procedure orders will be as directed. * If PAR score is less than 8 or not return to pre-procedure baseline then patient will follow Phase I monitoring till PAR is reached for Phase II. The Phase I may be done in procedure room or may call to secure a Phase I area. * If naloxone or flumazenil are used for reversal, hold in Phase I for continued monitoring from when last reversal dose was given for a minimum of 60 minutes or longer pending the nurse and/or physician discretion of patient condition before discharge to Phase II. Please call the Sedation Physician to re-evaluate and complete post-note for discharge to Phase II area. Do NOT discharge from procedure sedation or Phase 1 until post- sedation evaluation note is complete by procedure /sedation MD Sedation Discharge Instructions to be given to the patient at discharge to home.
--- NOTE | 2020-11-28 01:35 | Cardiac Catheterization ---
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 Cardiac Status Clinical evaluation leading to the procedure CAD Presenation: STEMI Anginal Classification: CCS IV Heart Failure: No Cardiogenic Shock within 24 Hours: No Cardiac Arrest within 24 Hours: No Imaging Studies Past 6 Months: No Stress Studies Past 6 Months: No Diagnostic Physicians Name: Perez Sellers MD Status: Emergency Closure Device Percutaneous Entry Location: Radial Closure Device: Radial Band Recommendations: PCI without planned CABG PCI Indication: Immediate PCI for STEMI Reason For Delay in PCI:: Need for further assessment of left main with FFR Lesion Segment Name: Proximal D2 Culprit Artery: Yes Stenosis Prior to Rx (%): 95 Chronic Total Occlusion: No IVUS: No FFR: No Pre-Procedure DARA Flow: 2 Previously Treated Lesion: No Lesion Complexity: Non-High/Non-C Lesion Length (mm): 15 Thrombus Present: Yes Bifurcation Lesion: No Guidewire Across Lesion: Stenosis Post-Procedure (%): 0 Post-Procedure DARA Flow: 3 Devices(s) Deployed: Yes Yes Lesion #2 Segment Name: Mid LAD Culprit Artery: No Stenosis Prior to Rx (%): 80 Chronic Total Occlusion: No IVUS: No FFR: No Pre-Procedure DARA Flow: 3 Previously Treated Lesion: No Lesion Complexity: Non-High/Non-C Thrombus Present: No Bifurcation Lesion: Yes Guidewire Across Lesion: Yes Stenosis Post-Procedure (%): 0 Post-Procedure DARA Flow: 3 Devices(s) Deployed: Yes Intraprocedure Events Significant Disection: No Perforation: No Cardiac Cath Procedure Full Procedure Date November 28, 2020 Pre-Procedure Diagnosis Pre-Procedure Diagnosis: STEMI AUC Score AUC Score: 9 Post-Procedure Diagnosis Post-Procedure Diagnosis: Severe CAD, Successful PCI and Normal Intracardiac Pressures Procedure(s) Performed Procedure(s) Performed: Coronary Angiography, Left Heart Cath, Drug Eluting Stent and Fractional Flow [place] Manager Of Merchandising Perez Sellers MD Packing Machine Tender(s) Sanjeev Estimated Blood Loss Estimated Blood Loss: 15 Medication(s) Medication(s): Clopidogrel, Fentanyl, Heparin, Lidocaine 1%, Nicardipine, Nitroglycerin and Versed Summary of Findings Indication: Heart alert/anterior STEMI Access: 6 Fr slender right radial artery Catheters: EBU 3.5, able to cannulate left main with JL 3.5 guide, diagnostic JR4 Findings: LM -normal caliber, 40% distal stenosis LAD -40% ostial stenosis, 80% mid stenosis just after takeoff of D2. Distal vessel small and tapers to apex. Medium D2 with 95% acute proximal stenosis. Circumflex -medium caliber, 30% ostial, Doximity mid segment luminal irregularities. Medium OM1 without significant disease. RCA -dominant, large caliber vessel, no significant disease. LVEDP -16 At time of initial angiography patient largely chest pain-free with DARA-3 flow in LAD and diagonal. Concern that distal left main essentially flow-limiting. BMW wire placed into circumflex ACIST FFR catheter placed in the mid circumflex Pd/Pa 0.98 Decision to proceed with PCI of LAD, diagonal -- PCI -- Antithrombotic therapy: Heparin, clopidogrel Procedure: Left main cannulated with JL 3.5 guide BMW wire placed across mid stenosis into distal vessel Senior Gl Accountant 50 wire passed across D1 lesion into distal vessel Proximal D2 lesion predilated with 2.0 compliant balloon Dilated D2 lesion stented with 2.25 x 18 mm [place]vere drug-eluting stent Stent postdilated with stent balloon Mid LAD stenosis dilated with 2.0 balloon Mid LAD stented with 2.25 x 18 mm Moses drug-eluting stent LAD stent post-dilated with 2.5 noncompliant balloon IC vasodilators administered for spasm Post procedure DARA 3 flow in LAD and diagonal, stents well expanded with minimal residual stenosis and no apparent cardiac complications. Arterial Closure: TR band Summary: 1. Multivessel coronary artery disease -95% acute proximal D2 (acute culprit vessel). 80% mid LAD 40% distal left main (nonflow limiting by IFR into circumflex). 2. Normal intracardiac filling pressure 3. Successful PCI of D2 with single drug-eluting stent (2.25 x 18 mm Moses). 4. Successful PCI of mid LAD with a single drug-eluting stent (2.25 x 18 mm [place]). Recommendations: To PCU for continued monitoring Trend troponins and check echocardiogram in a.m. 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 Any exceptions are noted below. [facility] Card Cath Procedure Codes Cardiac Catheterization Procedure 1: Cardiovascular Cath Procedures: 39114 Coronaries and LHC (+/-LV) Procedure 2: Cardiovascular Cath Procedures: 86595 (Doppler) Pressure Wire Moderate Sedation Procedure 1: Sedation/Anesthesia: 93959 Mod Sedation by the same physician;Init15 Min Child Age 5 & Up Procedure 2: Sedation/Anesthesia: 94083 Mod Sedation by the same physician; Ea [id number] Minutes Stenting Procedure 1: Cardiovascular Stent Procedures: 73731 Perc transluminal revascularization of acute sub/total occl, aMI PG Care Time/CCT Total # of Minutes Spent Total Time Spent with Patient: Total time spent is greater than 50% in coordination of care (as documented) at patient's floor/unit and/or counseling patient:
[2020-11-28] MEDS ORDERED: ACETAMINOPHEN 325 MG TAB PO PRN (01:37)
[2020-11-28] MEDS ORDERED: ONDANSETRON INJ 2 MG/ML 2 ML VIAL IV PRN (01:37)
[2020-11-28] MEDS ORDERED: NITROGLYCERIN SL 0.4 MG/TAB TAB SL PRN (01:37)
[2020-11-28] MEDS ORDERED: SODIUM CHLORIDE 0.9% 1000ML 750 ML IV SCH (02:15)
[2020-11-28] MEDS ORDERED: METOPROLOL TARTRATE 25 MG TAB PO SCH (06:00)
--- NOTE | 2020-11-28 06:40 | XRay Report ---
XR chest 1V portable CLINICAL HISTORY: Atypical chest pain. COMPARISON STUDY: Chest radiograph November 25, 2008. FINDINGS: Mild elevation of the right hemidiaphragm is unchanged. Lungs are clear. There is no pneumo thorax or pleural effusion. Cardiac size is stable. Mediastinal contours are normal. There is no evid ence for pulmonary edema. IMPRESSION: No acute cardiopulmonary findings. ACT 112: Negative or not required by law. Electronically signed by: Azael Lacey M.D. 11/28/2020 6:38 AM
[2020-11-28] MEDS: LOSARTAN POTASSIUM 25 MG TAB PO SCH (07:28)
[2020-11-28] MEDS: ASPIRIN 81 MG ECTAB PO SCH (07:28)
[2020-11-28] MEDS: PANTOprazole 40 MG TAB PO SCH (07:29)
[2020-11-28] MEDS: CLOPIDOGREL BISULFATE 75 MG TAB PO SCH (07:29)
[2020-11-28] MEDS: CHOLECALCIFEROL 1,000 UNITS 25 MCG TAB PO SCH (07:29)
[2020-11-28] MEDS: ATORVASTATIN 40 MG TAB PO SCH (07:29)
[2020-11-28] MEDS: allopurinoL 300 MG TAB PO SCH (07:29)
[2020-11-28 07:55] LABS: Basophils # (auto) 0.01 K/uL (0-0.2); Basophils % (auto) 0.1 %; Eosinophils # (auto) 0.01 K/uL (0-0.5); Eosinophils % (auto) 0.1 %; Hematocrit (blood only) 43.7 % (37-47); Hemoglobin 14.6 g/dL (12.0-16.0); Immature Granulocytes # (auto) 0.03 K/uL (0.00-0.02); Immature Granulocytes % (auto) 0.2 %; Lymphocytes # (auto) 1.23 K/uL (1.2-3.4); Lymphocytes % (auto) 7.8 %; Mean Corpuscular Hemoglobin 29.7 pg (25-34); Mean Corpuscular Hgb Conc 33.4 g/dL (32-36); Mean Corpuscular Volume 88.8 fL (80-100); Mean Platelet Volume 9.3 fL (7.4-10.4); Monocytes # (auto) 0.42 K/uL (0.11-0.59); Monocytes % (auto) 2.7 %; Neutrophils # (auto) 14.11 K/uL (1.4-6.5); Neutrophils % (auto) 89.1 %; Platelet Count 342 K/uL (130-400); RDW Coefficient of Variation 14.2 % (11.5-14.5); Red Blood Count 4.92 M/uL (4.2-5.4); White Blood Count 15.81 K/uL (4.8-10.8)
[2020-11-28 08:07] LABS: Estimated Average Glucose 148 mg/dl; Hemoglobin A1C 6.8 % (4.5-5.6)
[2020-11-28 08:19] LABS: Troponin I 8.31 ng/ml (0-0.045)
[2020-11-28] MEDS ORDERED: METOPROLOL TARTRATE 25 MG TAB PO ONE (09:01)
[2020-11-28] MEDS: ENOXAPARIN INJ 40 MG/0.4 ML SYR SQ SCH (10:04)
--- NOTE | 2020-11-28 12:23 | XCELERA ---
[id number]
--- NOTE | 2020-11-28 15:08 | Electrocardiogram Report ---
Test Reason : Blood Pressure : / mmHG Vent. Rate : 103 BPM Atrial Rate : 103 BPM P-R Int : 194 ms QRS Dur : 088 ms QT Int : 378 ms P-R-T Axes : 060 -06 026 degrees QTc Int : 495 ms Poor data quality, interpretation may be adversely affected Sinus tachycardia with occasional , and consecutive Premature ventricular complexes Acute Anterolateral infarct Abnormal ECG When compared with ECG of 19-NOV-2019 15:03, Premature ventricular complexes are now Present Premature supraventricular complexes are no longer Present ST elevation now present in Anterolateral leads Confirmed by Papa Daugherty ([id number]) on 11/28/2020 3:08:02 PM Referred By: REFERRED SELF Confirmed By:Papa Daugherty
--- NOTE | 2020-11-28 15:11 | Electrocardiogram Report ---
Test Reason : Blood Pressure : / mmHG Vent. Rate : 102 BPM Atrial Rate : 102 BPM P-R Int : 000 ms QRS Dur : 096 ms QT Int : 386 ms P-R-T Axes : 000 040 043 degrees QTc Int : 503 ms Poor data quality, interpretation may be adversely affected Sinus rhythm with 1st degree A-V block Low voltage QRS Anteroseptal infarct , age undetermined Abnormal ECG When compared with ECG of 27-NOV-2020 23:34, ST no longer elevated in Lateral leads Confirmed by Papa Daugherty ([id number]) on 11/28/2020 3:11:48 PM Referred By: REFERRED SELF Confirmed By:Papa Daugherty
[2020-11-28] MEDS: METOPROLOL TARTRATE 50 MG TAB PO SCH ×2 (16:55→23:47)
--- NOTE | 2020-11-28 17:26 | Cardiology Progress Note ---
Date of Service November 28, 2020 Assessment & Plan (1) Acute NV: --Post PCI to LAD, D2 --Residual moderate left main disease 2. Severe LV dysfunctionlast EF 30 to 35% 3. Hypertension 4. Dyslipidemia 5. GERD/dyspepsia Minimal residual chest pain. Repeat ECG this a.m. improved. Gradual rise in troponin Hemodynamically stable. Sinus tachycardia but otherwise electrically stable No active site complications. No signs of heart failure on exam Reviewed echocardiogram. Severe LAD distribution wall motion abnormality, out of proportion to LAD disease. Question some component of stress-induced cardiomyopathy. --Continue DAPT with aspirin, clopidogrel Titrate up beta-funmilayo, increase to 50 mg 3 times daily Increase losartan to 50 mg daily Discontinue amlodipine. We will try to add spironolactone Continue high intensity statin From a cardiac standpoint okay with transfer to telemetry today. If remains stable potentially home tomorrow. Admission and Anticipated Discharge Date Admission Date: November 28, 2020 Subjective Had persistent low-grade chest pain overnight. Largely chest pain-free this morning. Denies shortness of breath. No significant pain at right radial artery access site. Telemetry reviewedsinus tachycardia, no significant arrhythmia. Echo reviewedsevere LAD distribution wall motion abnormality EF 30 to 35% Review of Systems Review of Systems: All systems reviewed & are unremarkable except as noted in HPI & below Physical Exam Physical Exam: General: Comfortable HEENT: Sclerae anicteric, Mask in place Lungs: Clear to auscultation bilaterally, no crackles or wheezes Cardiac: Regular rate and rhythm, no murmurs. No JVD Vascular: Right radial artery access site with no ecchymosis, hematoma. Distal pulse and sensation intact. Abdomen: Soft, nontender Extremities: Well perfused, no peripheral edema Neuro: Nonfocal Psych: Alert orient x3, normal affect and mood Results & Data ([facility]) Vital Signs (Past 12 Hours) Vital Signs Temp Pulse Pulse Resp BP BP Pulse Ox 11/28/20 16:46 97.9 F 88 17 143/84 H 94 11/28/20 11:35 97.9 F 96 H 19 132/76 94 11/28/20 08:00 114 H 11/28/20 07:47 97.9 F 117 H 20 128/78 97 11/28/20 06:22 97.9 F 119 H 16 151/97 H 98 11/28/20 05:45 109 H 16 128/79 93 11/28/20 05:29 114 H PG Care Time/CCT Total # of Minutes Spent Total Time Spent with Patient: Total time spent is greater than 50% in coordination of care (as documented) at patient's floor/unit and/or counseling patient: Coding Level of Care Code 73140 Subseq Hosp Care Lvl 3 Diagnoses Acute NV I21.9
[2020-11-28] MEDS ORDERED: ALUMINUM/MAGNESIUM SUSP 30 ML UDC PO PRN (18:23)
[2020-11-28] MEDS: BISMUTH SUBSALICYLATE SUSP PO PRN (19:45)
[2020-11-28] MEDS ORDERED: amLODIPine BESYLATE 5 MG TAB PO SCH (21:00)
[2020-11-29 06:16] LABS: Hematocrit (blood only) 39.9 % (37-47); Hemoglobin 13.1 g/dL (12.0-16.0)
[2020-11-29] MEDS: BISMUTH SUBSALICYLATE SUSP PO PRN (06:25)
[2020-11-29 06:49] LABS: BUN Creatinine Ratio 22.8 (10-20); Calcium 9.8 mg/dl (8.5-10.1); Creatinine Clr Calc Pharmacy 40.9 ml/min; Est GFR (African American) 56.6; Est GFR (Non-African American) 48.9; Potassium 3.9 mmol/L (3.5-5.1)
[2020-11-29 06:55] LABS: Troponin I 14.1 ng/ml (0-0.045)
[2020-11-29] MEDS: CLOPIDOGREL BISULFATE 75 MG TAB PO SCH (08:57)
[2020-11-29] MEDS: LOSARTAN POTASSIUM 25 MG TAB PO SCH (08:57)
[2020-11-29] MEDS: ATORVASTATIN 40 MG TAB PO SCH (08:57)
[2020-11-29] MEDS: allopurinoL 300 MG TAB PO SCH (08:57)
[2020-11-29] MEDS: CHOLECALCIFEROL 1,000 UNITS 25 MCG TAB PO SCH (08:57)
[2020-11-29] MEDS: ASPIRIN 81 MG ECTAB PO SCH (08:58)
[2020-11-29] MEDS: PANTOprazole 40 MG TAB PO SCH (08:58)
[2020-11-29] MEDS ORDERED: SPIRONOLACTONE 25 MG TAB PO SCH (09:00)
[2020-11-29] MEDS ORDERED: METOPROLOL TARTRATE 100 MG TAB PO SCH (09:00)
[2020-11-29] MEDS: METOPROLOL TARTRATE 50 MG TAB PO SCH (09:01)
[2020-11-29] MEDS: ENOXAPARIN INJ 40 MG/0.4 ML SYR SQ SCH (11:39)
--- NOTE | 2020-11-29 13:25 | Discharge Summary ---
Date of Service November 29, 2020 Admission HPI Per Admitting Provider 80-year-old woman here with acute chest pain and ECG concerning for acute NE. Patient seen emergently in the ED after heart alert activated upon arrival. No prior cardiac history. Cardiac risk factors include hypertension. Other medical issues include gout, vitamin D deficiency and osteoarthritis post multiple joint replacements. Chest pain began approximately 10 PM, around 1 hour prior to calling EMS. Desc ribes 1 brief episode of chest discomfort occurring yesterday evening which resolved and was feeling normal throughout day today. Describes substernal severe pain this evening with associated nausea. Given aspirin, nitro en route without significant change. Hypertensive on arrival with systolic pressures greater than 200. Serial ECG showed anterior ST elevations and occasional PVCs. Received IV metoprolol. At time of interview chest pain down to 2 out of 10. Specialty Data Cardiology Cardiac cath/PCI 11/28/2020: 1. Multivessel coronary artery disease -95% acute proximal D2 (acute culprit vessel). 80% mid LAD 40% distal left main (nonflow limiting by IFR into circumflex). 2. Normal intracardiac filling pressure 3. Successful PCI of D2 with single drug-eluting stent (2.25 x 18 mm Moses). 4. Successful PCI of mid LAD with a single drug-eluting stent (2.25 x 18 mm [place]). Echo 11/28/2020:LVEF 25 to 30%, hyperdynamic base, akinetic mid ventricle to apex, no significant valvular pathology Discharge Data Consultations 11/27/20 23:43 ED Decision to Admit Stat Procedures Performed Operation Date: 11/27/20 23:55 <No data on this case meets the specified criteria> Operation Date: 11/28/20 00:00 Actual Procedures p Drug Eluting Stent SGl Vessel - Vito Sellers MD p Aspiration/PCI w/MEGGAN for Stemi - Vtio Sellers MD s Drug Eluting Stent each ADDTL Vessel - Vito Sellers MD s Cath, Left with Cors and Vent - Vito Sellers MD s Cineradiography w/Routine Exam - Vito Sellers MD s Fraction Flow [place] SGL Ves - Vito Sellers MD Diabetes Follow Up Diabetes Follow Up: Diabetes Follow-up Needed for Newly Diagnosed Diabetes Hospital Course (1) Acute NE: --Post PCI to LAD, D2 --Residual moderate left main disease 2. Severe LV dysfunctionlast EF 30 to 35% 3. Hypertension 4. Dyslipidemia 5. GERD/dyspepsia 6. Borderline diabetes Patient was taken for emergent cardiac catheterization and found to have a severe potentially acute 95% stenosis in her second diagonal as well as a 80% stenosis and her mid LAD. She had moderate left main disease which was nonflow limiting by FFR. Underwent PCI with placement of a MEGGAN to second diagonal and another to mid LAD. Post procedure had mild residual chest pain overnight which resolved following morning. Troponin peaked at 14. Echocardiogram showed severe LV dysfunction EF 30% with mid to apical akinesis and hyperdynamic base. LV dysfunction thought out of proportion to degree of coronary artery disease and question stress-induced cardiomyopathy on top of CAD. Discharged on DAPT with aspirin, clopidogrel. Guideline directed medical the rapy for cardiomyopathy started. Discharged on Toprol-XL 200 mg daily, losartan 50 mg and spironolactone 25 mg daily. Her prior amlodipine and losartan/HCTZ (100/25) stopped. Started on high intensity statin. LDL 87. A1c borderline at 6.8 unchanged from previous values with PCP. Follow-up with cardiology in 1 week with repeat BMP at that time. 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 Discharge Instructions Home Medications allopurinol 300 mg PO QAM 07/13/19 [History Confirmed 11/28/20] multivitamin 1 tab PO QAM 07/13/19 [History Confirmed 11/28/20] cholecalciferol (vitamin D3) [Vitamin D3] 1,000 unit PO QAM 11/19/19 [History Confirmed 11/28/20] aspirin 81 mg PO QAM #30 tab 11/29/20 [Rx] atorvastatin 40 mg PO QAM #30 tab 11/29/20 [Rx] clopidogrel 75 mg PO QAM #30 tab 11/29/20 [Rx] losartan 50 mg PO QAM #30 tab 11/29/20 [Rx] metoprolol succinate 200 mg PO HS #60 tab 11/29/20 [Rx Confirmed 11/28/20] nitroglycerin [Nitrostat] 0.4 mg SUBLINGUAL PRN PRN #30 tab 11/29/20 [Rx] pantoprazole 40 mg PO DAILY #30 tab 11/29/20 [Rx] spironolactone 25 mg PO QAM #30 tab 11/29/20 [Rx] Coding Level of Care Code 29261 OBS Care - Discharge Diagnoses Acute NE I21.9
== END 2020-11-29 13:45 | disposition home or self-care (01) ==
LOC: ED 23:31 → 1E 23:31 → 2S 11-28 16:45

== ENCOUNTER 2020-12-02 18:49 | Observation (INO) ==
[2020-12-02] MEDS ORDERED: ASPIRIN CHEW 324 MG PO STA (18:57)
--- NOTE | 2020-12-02 19:15 | Emergency Department Note ---
History of Present Illness General Chief Complaint: Chest Pain Stated Complaint: STENTS PUT IN FRIDAY - Time Seen by Provider: 12/02/20 18:56 History of Present Illness Provider Complaint: chest pain Onset (ago): day(s) 2 Duration: intermittent Onset: during rest Pain Location: substernal and left chest Pain Radiation: none Severity: moderate Maximum Pain Intensity: 7 Current Pain Intensity: 0 Quality: + aching Relieved By: + nothing Exacerbated By: + nothing Context: + recent surgery (Cardiac stents placed on Friday); no history of DVT/PE Associated symptoms: no nausea, no vomiting, no diaphoresis, no dyspnea, no syncope, no palpitations, no fever, no cough and no leg swelling Home Medications Medication Instructions Recorded Confirmed Type allopurinol 300 mg PO QAM 07/13/19 12/02/20 History multivitamin 1 tab PO QAM 07/13/19 12/02/20 History cholecalciferol (vitamin D3) 1,000 unit PO QAM 11/19/19 12/02/20 History [Vitamin D3] aspirin 81 mg PO QAM #30 tab 11/29/20 12/02/20 Rx atorvastatin 40 mg PO QAM #30 tab 11/29/20 12/02/20 Rx clopidogrel 75 mg PO QAM #30 tab 11/29/20 12/02/20 Rx losartan 50 mg PO QAM #30 tab 11/29/20 12/02/20 Rx metoprolol succinate 200 mg PO HS #60 tab 11/29/20 12/02/20 Rx nitroglycerin [Nitrostat] 0.4 mg SUBLINGUAL PRN PRN #30 tab 11/29/20 12/02/20 Rx pantoprazole 40 mg PO DAILY #30 tab 11/29/20 12/02/20 Rx spironolactone 25 mg PO QAM #30 tab 11/29/20 12/02/20 Rx Allergies Allergy/AdvReac Type Severity Reaction Status Date / Time No Known Allergies Allergy Unknown Verified 12/02/20 19:39 Past Med/Surg History Medical History (Updated 12/02/20 @ 21:17 by Ivan Young) Depression GERD (gastroesophageal reflux disease) controlled Gout Hyperlipidemia Hypertension Osteoarthritis Surgical History History of appendectomy History of cataract surgery R/L History of cholecystectomy History of colonoscopy History of hysterectomy TOTAL History of intestinal surgery History of repair of rotator cuff RIGHT History of right hip replacement Right CHRISTINE: 07/22/19: SAB x 1 at L3-L4 at [facility] History of total knee replacement LEFT Family History Brother Family hx of colon cancer Social History Smoking Status: Never smoker Second Hand Exposure: Yes ( was a smoker); Hx Alcohol Use: No Hx Substance Use: No Preferred Language: Guamanian Communication Ability: Effective Jammer Hooker Required: No Beliefs That Will Affect Care: None marital status: / Current Living Situation: Family Current Living Situation Comment: Pt lives with son Pedro Feels Safe at Home: Yes Assistive Devices: None Review of Systems A total of 10 systems reviewed and were otherwise negative Physical Exam Vital Signs Vital Signs - 24 hr 12/02/20 18:51 12/02/20 19:08 12/02/20 19:12 Temperature 36.6 C Temperature Source Temporal Artery Scan Pulse Rate 115 H 104 H 102 H Pulse Rate from SpO2 Sensor 102 H Pulse Rhythm Regular Respiratory Rate 22 20 18 Respiratory Effort / Characteristics Non-Labored Spontaneous Respiratory Depth Normal Blood Pressure 190/100 H 175/90 H Blood Pressure Mean 130 115 Blood Pressure Position Sitting Pulse Oximetry 95 94 95 Oxygen Delivery Method Room Air Room Air Room Air Oxygen Flow Rate Sepsis Recent Fever Within 48 Hours No Sepsis New/Unexplained Change in Mental Status N/A Sepsis Action Taken by Nursing No Action Required Oxygen Flow Rate - Titration Pulse Oximetry Post Tiitration 12/02/20 19:30 12/02/20 20:00 12/02/20 20:30 Temperature Temperature Source Pulse Rate 100 H 97 H 104 H Pulse Rate from SpO2 Sensor 101 H 100 H 104 H Pulse Rhythm Respiratory Rate 20 20 31 H Respiratory Effort / Characteristics Respiratory Depth Blood Pressure 165/90 H 168/78 H 164/108 H Blood Pressure Mean 108 89 129 Blood Pressure Position Pulse Oximetry 96 95 90 Oxygen Delivery Method Room Air Room Air Room Air Oxygen Flow Rate Sepsis Recent Fever Within 48 Hours Sepsis New/Unexplained Change in Mental Status Sepsis Action Taken by Nursing Oxygen Flow Rate - Titration Pulse Oximetry Post Tiitration 12/02/20 20:36 12/02/20 20:38 12/02/20 20:40 Temperature Temperature Source Pulse Rate 94 H 93 H Pulse Rate from SpO2 Sensor 93 H 92 H Pulse Rhythm Respiratory Rate 22 24 Respiratory Effort / Characteristics Respiratory Depth Blood Pressure 132/74 157/85 H Blood Pressure Mean 93 117 Blood Pressure Position Pulse Oximetry 88 L 96 95 Oxygen Delivery Method Room Air Nasal Cannula Nasal Cannula Oxygen Flow Rate 2 2 Sepsis Recent Fever Within 48 Hours Sepsis New/Unexplained Change in Mental Status Sepsis Action Taken by Nursing Oxygen Flow Rate - Titration 2 Pulse Oximetry Post Tiitration 96 12/02/20 20:50 12/02/20 21:00 Temperature Temperature Source Pulse Rate 93 H 90 Pulse Rate from SpO2 Sensor 94 H 90 Pulse Rhythm Respiratory Rate 19 24 Respiratory Effort / Characteristics Respiratory Depth Blood Pressure 165/90 H 168/89 H Blood Pressure Mean 108 125 Blood Pressure Position Pulse Oximetry 95 97 Oxygen Delivery Method Nasal Cannula Nasal Cannula Oxygen Flow Rate 2 2 Sepsis Recent Fever Within 48 Hours Sepsis New/Unexplained Change in Mental Status Sepsis Action Taken by Nursing Oxygen Flow Rate - Titration Pulse Oximetry Post Tiitration Physical Exam GENERAL: She is oriented to person, place, and time. She appears well-developed and well-nourished. She does not appear distressed. HENT: Exam performed. -Head: Normocephalic and atraumatic. -Right Ear: External ear normal. No mastoid tenderness. -Left Ear: External ear normal. No mastoid tenderness. -Mouth/Throat: The oropharynx is clear and moist. No trismus in the jaw. No dental abscesses or uvula swelling. No oropharyngeal exudate or tonsillar abscesses. EYES: Conjunctivae and EOM are normal. Pupils are equal, round, and reactive to light. Right eye exhibits no discharge. Left eye exhibits no discharge. No scleral icterus. NECK: Normal range of motion. Neck supple. No JVD present. No spinous process tenderness present. No carotid bruit present. No rigidity. No tracheal deviation and normal range of motion present. No Brudzinski's sign and no Kernig's sign noted. CV: Normal rate, regular rhythm, normal heart sounds and intact distal pulses. There is no peripheral edema. Palpable radial pulses bue. PULM/CHEST: Effort normal and breath sounds normal. No respiratory distress. No stridor. She has no wheezes. She has no rales. -Chest Wall: She exhibits no tenderness. ABD: The abdomen is soft. Bowel sounds are normal. She has no distension. No mass is present. There is no tenderness. There is no rebound, no guarding, no Rivas's sign and no tenderness at McBurney's point. Rovsig negative MUSC/SKEL: Normal range of motion. There is no peripheral edema, tenderness or deformity. LYMPH: No cervical adenopathy. NEURO: She is alert and oriented to person, place, and time. She has normal strength. No cranial nerve deficit or sensory deficit. Coordination and gait normal. GCS eye subscore is 4. GCS verbal subscore is 5. GCS motor subscore is 6. Cerebellar tests wnl. SKIN: Skin is warm and dry. She is not diaphoretic. PSYCH: She has a normal mood and affect. Behavior is normal. Judgment and thought content normal. Course Course 1855: The patient was evaluated in room B3. A complete history and physical exam was performed. Cardiac monitoring: An order was placed for continuous cardiac monitoring. The monitor shows a rate of 107 with sinus rhythm EMR reviewed. Patient was seen in the emergency department on November 28, 2020. Patient had ST elevation in leads V2, V3, V4, V5 V6. Patient had 2 stents placed one in the acute proximal D2 and one in the mid LAD. 2027: Patient surgery reporting to nursing she was having increasing chest pain over her left chest. Patient will be given 1 sublingual nitroglycerin to see if this helps her pain. 2040: Labs show potassium 3.3, replaced in the emergency department. Troponin trending downward, 1.94 down from 12.8 on November 29 2020. On reassessment, the patient reports that sublingual nitro improved her chest pain. The patient did become hypoxic. Oxygen saturation went down to 88%. Patient started 2 L nasal cannula which improved her oxygen saturation. CTA of the chest showed no PE. It did show mild pulmonary edema. Given the patient's hypoxia and recent stent placement [facility]. Discussed case with Dr. Dale Marshall. She has a 20 mg of Lasix given to the patient. Administered Medications Sodium Chloride (Nss 1000ml) 1,000 mls @ 125 mls/hr IV .Q8H REMI Stop: 01/01/21 20:29 Last Admin: 12/02/20 20:30 Dose: 125 mls/hr Documented by: [id number] Discontinued Medications Aspirin (Aspirin Chew 324 Mg) 324 mg PO NOW STA Stop: 12/02/20 18:58 Last Admin: 12/02/20 19:07 Dose: 324 mg Documented by: [id number] Ioversol (Optiray 320 125ml) 120 ml IV ONCE ONE Stop: 12/02/20 20:13 Last Admin: 12/02/20 20:13 Dose: 120 ml Documented by: [id number] Nitroglycerin (Nitroglycerin Sl 0.4 Mg/Tab Tab) 0.4 mg SL NOW STA Stop: 12/02/20 20:27 Last Admin: 12/02/20 20:30 Dose: 0.4 mg Documented by: [id number] Nitroglycerin (Nitroglycerin Sl 0.4 Mg/Tab Tab) Confirm Administered Dose 0.4 mg .ROUTE .STK-MED ONE Stop: 12/02/20 20:27 Last Admin: 12/02/20 20:30 Dose: Not Given Documented by: [id number] Medical Decision Making Laboratory Data Result diagrams: 12/02/20 18:57 12/02/20 18:57 Labs: Lab Results 12/02/20 12/02/20 12/02/20 Range/Units 18:57 18:57 18:57 WBC 11.78 H (4.8-10.8) K/uL RBC 4.77 (4.2-5.4) M/uL Hgb 14.1 (12.0-16.0) g/dL Hct 42.4 (37-47) % MCV 88.9 (80-100) fL MCH 29.6 (25-34) pg MCHC 33.3 (32-36) g/dL RDW Std Deviation 45.9 (36.4-46.3) fL RDW Coeff of Nicky 14.2 (11.5-14.5) % Plt Count 409 H (130-400) K/uL MPV 9.3 (7.4-10.4) fL Immature Gran % (Auto) 0.3 % Neut % (Auto) 70.0 % Lymph % (Auto) 23.1 % Craven % (Auto) 4.4 % Eos % (Auto) 2.0 % Baso % (Auto) 0.2 % Neut # (Auto) 8.25 H (1.4-6.5) K/uL Lymph # (Auto) 2.72 (1.2-3.4) K/uL Craven # (Auto) 0.52 (0.11-0.59) K/uL Eos # (Auto) 0.23 (0-0.5) K/uL Baso # (Auto) 0.02 (0-0.2) K/uL Immature Gran # (Auto) 0.04 H (0.00-0.02) K/uL PT 10.9 (9.0-12.0) Seconds INR 1.0 (0.9-1.1) APTT 23.6 (21.0-31.0) Seconds PTT Ratio 0.8 Sodium 140 (136-145) mmol/L Potassium 3.3 L (3.5-5.1) mmol/L Chloride 105 (98-107) mmol/L Carbon Dioxide 29 (21-32) mmol/L Anion Gap 6.0 (3-11) BUN 22 H (7-18) mg/dl Creatinine 1.06 (0.6-1.2) mg/dl Est Cr Clr Drug Dosing 40.8 ml/min Est GFR ( Amer) 56.6 Est GFR (Non-Af Amer) 48.9 BUN/Creatinine Ratio 20.5 H (10-20) Glucose 199 H (70-99) mg/dl Calcium 9.9 (8.5-10.1) mg/dl Troponin I 1.940 H* (0-0.045) ng/ml Lipase 167 (73-393) U/L Imaging Data CT scan - chest: Radiologist's impression: Preliminary Findings Only See Final Report For Complete Findings CTA CHEST: The pulmonary arterial tree is well opacified with contrast. No pulmonary emboli are identified. The thoracic aorta is mildly calcified but nondilated. There is no aneurysm or dissection. The heart is mildly enlarged. Severe coronary calcification is present. No pericardial effusion. Small left pleural effusion measuring 2 cm. There is also a trace right pleural effusion measuring less than 1 cm. Prominent vascular and interstitial markings centrally greatest in both lung bases likely mild CHF. Moderate multilevel osteophytosis throughout the thoracic spine. No acute fracture or destructive bone lesion is seen. Radiologist: Sanket Marshall MD Study ready at 20:20 and initial results transmitted at 20:38 Chest x-ray: Radiologist's impression: XR chest 1V portable CLINICAL HISTORY: Chest Pain COMPARISON STUDY: Chest radiograph November 27, 2020. FINDINGS: There is mild elevation of the right hemidiaphragm. No pneumothorax or pleural effusion is present. Note is made of mild cardiomegaly without evidence for pulmonary edema. IMPRESSION: No acute cardiopulmonary findings. ACT 112: Negative or not required by law. Electronically signed by: Azael Lacey M.D. 12/02/2020 7:17 PM Dictated: 12/02/201915 Transcribed: 12/02/201915 ECG Data Indication: chest pain Rate (beats per minute): 111 Rhythm: normal sinus Findings: no ST depression, no ST elevation and no prolonged QT Additional Comments: MT QRS and QTc intervals are within normal limits. EKG #2 at 1920: Sinus tachycardia with rate of 101. MT 194 QRS [address] elevation or ST depression EKG #3 at 2022: Sinus tachycardia with a rate of 107. MT 214 QRS [address] elevation or ST depression. [facility] Narrative 1856: The patient was evaluated in room B3. A complete history and physical exam was performed. Cardiac monitoring: An order was placed for continuous cardiac monitoring. The monitor shows a rate of 107 with sinus rhythm EMR reviewed. Patient was seen in the emergency department on November 28, 2020. Patient had ST elevation in leads V2, V3, V4, V5 V6. Patient had 2 stents placed one in the acute proximal D2 and one in the mid LAD. 2027: Patient surgery reporting to nursing she was having increasing chest pain over her left chest. Patient will be given 1 sublingual nitroglycerin to see if this helps her pain. 2040: Labs show potassium 3.3, replaced in the emergency department. Troponin trending downward, 1.94 down from 12.8 on November 29 2020. On reassessment, the patient reports that sublingual nitro improved her chest pain. The patient did become hypoxic. Oxygen saturation went down to 88%. Patient started 2 L nasal cannula which improved her oxygen saturation. CTA of the chest showed no PE. It did show mild pulmonary edema. Given the patient's hypoxia and recent stent placement patient will be admitted to the [facility] team. Discussed case with Dr. Dale Marshall. She has a 20 mg of Lasix given to the patient. Impression & Plan Hypoxia, Chest pain Critical Care Time Critical Care Time: Yes Total Critical Care Time: 38 I have personally spent greater than 38 minutes of critical care time in the direct management of this patient. This includes bedside care, interpretation of diagnostic studies, and testing, discussion with consultants, patient, and family members, and other required patient management activities. This 38 minutes is in excess of all separately billable procedures. Discharge Plan Visit Data Chief Complaint: Chest Pain Stated Complaint: STENTS PUT IN Friday ED Provider: Ivan Young Discharge Problem: Hypoxia, Chest pain Patient Disposition: Being Evaluated by Hospitalist Forms Stand Alone Forms: My [facility] Prescriptions Prescriptions: No Action atorvastatin 40 mg Tablet 40 mg PO QAM Qty: 30 RF: 6 clopidogrel 75 mg Tablet 75 mg PO QAM Qty: 30 RF: 6 aspirin 81 mg Tablet,Delayed Release (Dr/Ec) 81 mg PO QAM Qty: 30 RF: 11 spironolactone 25 mg Tablet 25 mg PO QAM Qty: 30 RF: 3 pantoprazole 40 mg Tablet,Delayed Release (Dr/Ec) 40 mg PO DAILY Qty: 30 RF: 1 nitroglycerin [Nitrostat] 0.4 mg Tablet, Sublingual 0.4 mg sublingual PRN PRN (Reason: chest pain) Qty: 30 RF: 1 losartan 50 mg tablet 50 mg PO QAM Qty: 30 RF: 6 metoprolol succinate 100 mg Tablet Extended Release 24 Hr 200 mg PO HS Qty: 60 RF: 6 multivitamin Tablet 1 tab PO QAM RF: 0 allopurinol 300 mg Tablet 300 mg PO QAM RF: 0 cholecalciferol (vitamin D3) [Vitamin D3] 1,000 unit Tablet,Chewable 1,000 unit PO QAM RF: 0 Referrals Referrals: Connie Bay MD [Primary Care Provider] - Discharge Problem: Chest pain Qualifiers: Chest pain type: unspecified Qualified Code(s): R07.9 - Chest pain, unspecified
--- NOTE | 2020-12-02 19:18 | XRay Report ---
XR chest 1V portable CLINICAL HISTORY: Chest Pain COMPARISON STUDY: Chest radiograph November 27, 2020. FINDINGS: There is mild elevation of the right hemidiaphragm. No pneumothorax or pleural effusion is present. Note is made of mild cardiomegaly without evidence for pulmonary edema. IMPRESSION: No acute cardiopulmonary findings. ACT 112: Negative or not required by law. Electronically signed by: Azael Lacey M.D. 12/02/2020 7:17 PM
[2020-12-02 19:19] LABS: Basophils # (auto) 0.02 K/uL (0-0.2); Basophils % (auto) 0.2 %; Eosinophils # (auto) 0.23 K/uL (0-0.5); Hematocrit (blood only) 42.4 % (37-47); Hemoglobin 14.1 g/dL (12.0-16.0); Immature Granulocytes # (auto) 0.04 K/uL (0.00-0.02); Immature Granulocytes % (auto) 0.3 %; Lymphocytes # (auto) 2.72 K/uL (1.2-3.4); Lymphocytes % (auto) 23.1 %; Mean Corpuscular Hemoglobin 29.6 pg (25-34); Mean Corpuscular Hgb Conc 33.3 g/dL (32-36); Mean Corpuscular Volume 88.9 fL (80-100); Mean Platelet Volume 9.3 fL (7.4-10.4); Monocytes # (auto) 0.52 K/uL (0.11-0.59); Monocytes % (auto) 4.4 %; Neutrophils # (auto) 8.25 K/uL (1.4-6.5); Platelet Count 409 K/uL (130-400); RDW Coefficient of Variation 14.2 % (11.5-14.5); RDW Standard Deviation 45.9 fL (36.4-46.3); Red Blood Count 4.77 M/uL (4.2-5.4); White Blood Count 11.78 K/uL (4.8-10.8)
[2020-12-02 19:32] LABS: Partial Thromboplastin Ratio 0.8; Partial Thromboplastin Time 23.6 Seconds (21.0-31.0); Prothrombin Time 10.9 Seconds (9.0-12.0)
[2020-12-02 19:37] LABS: BUN Creatinine Ratio 20.5 (10-20); Blood Urea Nitrogen 22 mg/dl (7-18); Calcium 9.9 mg/dl (8.5-10.1); Carbon Dioxide 29 mmol/L (21-32); Chloride 105 mmol/L (98-107); Creatinine Clr Calc Pharmacy 40.8 ml/min; Est GFR (African American) 56.6; Est GFR (Non-African American) 48.9; Glucose 199 mg/dl (70-99); Lipase 167 U/L (73-393); Potassium 3.3 mmol/L (3.5-5.1); Sodium 140 mmol/L (136-145)
[2020-12-02] MEDS ORDERED: OPTIRAY 320 125ml IV ONE (20:12)
[2020-12-02] MEDS ORDERED: NITROGLYCERIN SL 0.4 MG/TAB TAB ONE (20:26)
[2020-12-02] MEDS ORDERED: NITROGLYCERIN SL 0.4 MG/TAB TAB SL STA (20:26)
[2020-12-02] MEDS ORDERED: SODIUM CHLORIDE 0.9% 1000ML 1,000 ML IV SCH (20:30)
[2020-12-02] MEDS ORDERED: POTASSIUM CHLORIDE 10 MEQ TABCR PO STA (21:12)
[2020-12-02] MEDS ORDERED: traZODone HCL 50 MG TAB PO ONE (21:12)
[2020-12-02] MEDS ORDERED: FUROSEMIDE 40 MG/4 ML VIAL IV STA (21:12)
--- NOTE | 2020-12-02 21:43 | History & Physical Report ---
Date of Service December 02, 2020 Assessment & Plan (1) Chest pain: 80yo C female with HTN, HLP, CAD with anterior STEMI on 11/27/20 s/p cardiac catheterization with placement of MEGGAN x 1 to D2 and MEGGAN x 1 to mid-LAD. Patient on DAPT with ASA and Plavix as well as Toprol XL, Losartan and Spiron olactone. She presents today with two days of intermittent left sided chest discomfort as well as SOB and Orthopnea. EKG with TWI in lateral leads Troponin = 1.94 which is decreasing from his previous value of 12.8 on 11/29/20 Presently chest pain free. Patient with elevated BP possibly contributing to discomfort, ?small degree of volume overload contributing to chest discomfort, orthopnea, SOB and hypoxia noted in ER. 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 She does not appear to be in florid failure. -Observation to PCU -Check CKMB -Trend cardiac enzymes -Nitro PRN -Cardiology consultation appreciated -Continue ASA, Plavix, Atorvastatin, Metoprolol, Losartan and Spironolactone Present on Admission?: Yes (2) Hypoxia: Patient with episode of hypoxia in ER - saturation decreased to 88% on room air. Presently improved with placement of oxygen by nasal cannula - 94% on 2L. CTA without PE, no pericardial effusion or tamponade. She does have small bilateral pleural effusions as well as question of mild pulmonary edema. ?CHF/volume overload -Lasix 20mg IV given in ER - monitor effect, clinical response -Monitor UOP, renal function and electrolytes -Supplemental O2 as needed -Check BNP Present on Admission?: Yes (3) CAD (coronary artery disease): As above -Continue ASA, Plavix, Atorvastatin, Metoprolol, Losartan and Spironolactone Present on Admission?: Yes (4) GERD (gastroesophageal reflux disease): Chronic. Stable -Continue Protonix Present on Admission?: Yes (5) Gout: Chronic. Stable -Continue Allopurinol Present on Admission?: Yes (6) Hyperlipidemia: Chronic. Stable -Continue Atorvastatin Present on Admission?: Yes (7) Hypertension: Blood pressure elevated at present -Give Metoprolol 200mg po qHS -Continue to monitor F/E/N - Diuresis with Lasix 20mg IV as above, monitor UOP, KCl 20mEq given in ER - will give additional 20meq, repeat labs in AM, heart healthy diet as tolerated Ppx - low risk for dvt Code - DNR/DNI per discussion with patient Dispo - Observation to PCU Present on Admission?: Yes History of Present Illness Chief Complaint: chest pain Primary Care Provider: Connie Bay MD Shaina Borja is an 80yo female with history fo HTN, HLP, GERD presenting with chest pain and SOB. Patient initially presented to [facility] on 11/28/20 with complaint of chest pain. Her EKG at that time was concerning for anterior STEMI. Code Heart was activated and the patient was taken for cardiac catheterization. She was found to have multivessel coronary artery disease with 95% acute proximal D2 occlusion - culprit vessel as well as 80% mid LAD and 40% distal left main disease. She had a MEGGAN x 1 placed to D2 vessel and MEGGAN x 1 to mid- LAD. An echocardiogram was performed which revealed moderate to severely reduced with moderate asymmetric LV hypertrophy - EF of 25-30%. 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 Elevated RVSP of 40-50mmHg. No significant valvular pathology. Patient did well during her hospital stay. She was discharged home on 11/29/20 on DAPT with ASA and Plavix, started on Toprol XL-200mg daily, Losartan 50mg daily and Spironolactone 25mg daily and a high intensity statin. Patient reports compliance with her medications and has not missed any doses. She returns today with left sided chest discomfort as well as SOB ongoing x 2 days. She reports intermittent left sided chest pressure, 7/10 in severity that last several minutes. She denies diaphoresis/nausea/SOB or dizziness during these episodes. Pain is non-positional and non-exertional but is somewhat pleuritic at times. She also notes some shortness of breath and orthopnea as well as a dry cough. She denies fevers/chills/sweats/palpitations/nausea/vomiting/diarrhea. No additional complaints at this time. ER Course: ASA 32mg, Nitro 0.4mg, NSS x 1L, Lasix 20mg IV, KCL 20mg PO Allergies Allergy/AdvReac Type Severity Reaction Status Date / Time No Known Allergies Allergy Unknown Verified 12/02/20 19:39 Home Medications Medication Instructions Recorded Confirmed Type allopurinol 300 mg PO QAM 07/13/19 12/02/20 History multivitamin 1 tab PO QAM 07/13/19 12/02/20 History cholecalciferol (vitamin D3) 1,000 unit PO QAM 11/19/19 12/02/20 History [Vitamin D3] aspirin 81 mg PO QAM #30 tab 11/29/20 12/02/20 Rx atorvastatin 40 mg PO QAM #30 tab 11/29/20 12/02/20 Rx clopidogrel 75 mg PO QAM #30 tab 11/29/20 12/02/20 Rx losartan 50 mg PO QAM #30 tab 11/29/20 12/02/20 Rx metoprolol succinate 200 mg PO HS #60 tab 11/29/20 12/02/20 Rx nitroglycerin [Nitrostat] 0.4 mg SUBLINGUAL PRN PRN #30 tab 11/29/20 12/02/20 Rx pantoprazole 40 mg PO DAILY #30 tab 11/29/20 12/02/20 Rx spironolactone 25 mg PO QAM #30 tab 11/29/20 12/02/20 Rx Past Med/Surg History Medical History (Updated 12/02/20 @ 22:13 by Erlidna Marshall DO) CAD (coronary artery disease) Depression GERD (gastroesophageal reflux disease) controlled Gout Hyperlipidemia Hypertension Osteoarthritis 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 ST elevation myocardial infarction (STEMI) November 2020 s/p MEGGAN to D2 and mid-LAD Surgical History (Updated 12/02/20 @ 21:51 by Erlinda Marshall DO) History of appendectomy History of cataract surgery R/L History of cholecystectomy History of colonoscopy History of hysterectomy TOTAL History of intestinal surgery History of repair of rotator cuff RIGHT History of right hip replacement Right CHRISTINE: 07/22/19: SAB x 1 at L3-L4 at [facility] History of total knee replacement LEFT Family History Brother Family hx of colon cancer Social History Smoking Status: Never smoker Second Hand Exposure: Yes ( was a smoker); Hx Alcohol Use: No Hx Substance Use: No Preferred Language: Slovenian Communication Ability: Effective Tactical Intelligence Officer Required: No Beliefs That Will Affect Care: None marital status: / Current Living Situation: Family Current Living Situation Comment: Pt lives with son Pedro Feels Safe at Home: Yes Assistive Devices: None Review of Systems Review of Systems: All systems reviewed & are unremarkable except as noted in HPI & below Physical Exam Physical Exam: General: patient resting comfortably, NAD, non-toxic in appearance, AA&O x 4 Skin: warm, dry, intact, no rashes or lesions, slight bruising right radial artery, no hematoma HEENT: NC/AT, PERRL, EOMI, anicteric sclera, conjunctiva without injection, external ear normal to inspection and nontender, nares patent, moist mucus membranes, dentition intact, no oropharyngeal lesions, neck supple, trachea midline, no LAD, no thyromegaly, no JVD Heart: +S1/S2, regular, no m/r/g, no reproducible chest wall pain Lungs: equal air entry bilaterally, no rales/rhonchi/wheezes Abd: +BS, soft, NT/ND, no masses/organomegaly/ascites Ext: warm, 2+ pulses in UE/LE bilaterally, no clubbing/cyanosis or edema Neuro: nonfocal, patient AA&O x 4, speech intact, no facial droop, moving all extremities on command with equal strength 5/5 Results & Data Results & Data ([facility]) Vital Signs (Past 12 Hours) Vital Signs Temp Pulse Resp BP Pulse Ox 12/02/20 21:00 90 24 168/89 H 97 12/02/20 20:50 93 H 19 165/90 H 95 12/02/20 20:40 93 H 24 157/85 H 95 12/02/20 20:38 94 H 22 132/74 96 12/02/20 20:36 88 L 12/02/20 20:30 104 H 31 H 164/108 H 90 12/02/20 20:00 97 H 20 168/78 H 95 12/02/20 19:30 100 H 20 165/90 H 96 12/02/20 19:12 102 H 18 175/90 H 95 12/02/20 19:08 104 H 20 94 12/02/20 18:51 36.6 C 115 H 22 190/100 H 95 Laboratory Results Lab Results 12/02/20 12/02/20 12/02/20 Range/Units 18:57 18:57 18:57 WBC 11.78 H (4.8-10.8) K/uL RBC 4.77 (4.2-5.4) M/uL Hgb 14.1 (12.0-16.0) g/dL Hct 42.4 (37-47) % MCV 88.9 (80-100) fL MCH 29.6 (25-34) pg MCHC 33.3 (32-36) g/dL RDW Std Deviation 45.9 (36.4-46.3) fL RDW Coeff of Nicky 14.2 (11.5-14.5) % Plt Count 409 H (130-400) K/uL MPV 9.3 (7.4-10.4) fL Immature Gran % (Auto) 0.3 % Neut % (Auto) 70.0 % Lymph % (Auto) 23.1 % Turner % (Auto) 4.4 % Eos % (Auto) 2.0 % Baso % (Auto) 0.2 % Neut # (Auto) 8.25 H (1.4-6.5) K/uL Lymph # (Auto) 2.72 (1.2-3.4) K/uL Turner # (Auto) 0.52 (0.11-0.59) K/uL Eos # (Auto) 0.23 (0-0.5) K/uL Baso # (Auto) 0.02 (0-0.2) K/uL Immature Gran # (Auto) 0.04 H (0.00-0.02) K/uL PT 10.9 (9.0-12.0) Seconds INR 1.0 (0.9-1.1) APTT 23.6 (21.0-31.0) Seconds PTT Ratio 0.8 Sodium 140 (136-145) mmol/L Potassium 3.3 L (3.5-5.1) mmol/L Chloride 105 (98-107) mmol/L Carbon Dioxide 29 (21-32) mmol/L Anion Gap 6.0 (3-11) BUN 22 H (7-18) mg/dl Creatinine 1.06 (0.6-1.2) mg/dl Est Cr Clr Drug Dosing 40.8 ml/min Est GFR ( Amer) 56.6 Est GFR (Non-Af Amer) 48.9 BUN/Creatinine Ratio 20.5 H (10-20) Glucose 199 H (70-99) mg/dl Calcium 9.9 (8.5-10.1) mg/dl Troponin I 1.940 H* (0-0.045) ng/ml Lipase 167 (73-393) U/L Diagnostic Findings XR chest 1V portable CLINICAL HISTORY: Chest Pain COMPARISON STUDY: Chest radiograph November 27, 2020. FINDINGS: There is mild elevation of the right hemidiaphragm. No pneumothorax or pleural effusion is present. Note is made of mild cardiomegaly without evidence for pulmonary edema. IMPRESSION: No acute cardiopulmonary findings. ACT 112: Negative or not required by law. Electronically signed by: Azael Lacey M.D. 12/02/2020 7:17 PM Dictated: 12/02/201915Transcribed: 12/02/201915 CTA Chest - Per STAT-rad: Pulmonary arterial tree is well opacified with contrast. No PE are identified. Thoracic aorta is mildly calcified but nondilated. There is no aneurysm or dissection. The heart is mildly enlarged. Severe coronary calcification is present. No pericardial effusion. Small left pleural effusion measuring 2cm. There is also a trace right pleural effusion measuring less than 1cm. Prominent vascular and interstitial markings centrally greatest in both lung bases likely mild CHF. Moderate multilevel osteophytosis throughout the thoracic spine. No acute fracture or destructive bone lesion is seen. ECG Additional Comments: EKG is low voltage QRS, with ST at 107, normal axis, FC=811, QRS=76, IJm=729 TWI anterior leads PG Care Time/CCT Total # of Minutes Spent Total Time Spent with Patient: Total time spent is greater than 50% in coordination of care (as documented) at patient's floor/unit and/or counseling patient: Coding Level of Care Code 09584 OBS Care - Level 3 Diagnoses Chest pain R07.9 Chest pain type: unspecified Hypoxia R09.02 CAD (coronary artery disease) I25.10 Coronary Disease-Associated Artery/Lesion type: [place] artery [place] vs. transplanted heart: [place] heart Associated angina: without angina GERD (gastroesophageal reflux disease) K21.9 Esophagitis presence: esophagitis presence not specified Gout M10.9 Gout site: unspecified site Gout etiology: unspecified cause Chronicity: unspecified Hyperlipidemia E78.5 Hyperlipidemia type: unspecified Hypertension I10 Hypertension type: essential hypertension (1) Chest pain Chest pain type: unspecified Qualified Code(s): R07.9 - Chest pain, unspecified (2) CAD (coronary artery disease) Coronary Disease-Associated Artery/Lesion type: [place] artery [place] vs. transplanted heart: [place] heart Associated angina: without angina Qualified Code(s): I25.10 - Atherosclerotic heart disease of [place] coronary artery without angina pectoris (3) GERD (gastroesophageal reflux disease) Esophagitis presence: esophagitis presence not specified Qualified Code(s): K21.9 - Gastro-esophageal reflux disease without esophagitis (4) Gout Gout site: unspecified site Gout etiology: unspecified cause Chronicity: unspecified Qualified Code(s): M10.9 - Gout, unspecified (5) Hyperlipidemia Hyperlipidemia type: unspecified Qualified Code(s): E78.5 - Hyperlipidemia, unspecified (6) Hypertension Hypertension type: essential hypertension Qualified Code(s): I10 - Essential (primary) hypertension
[2020-12-02] MEDS ORDERED: ACETAMINOPHEN 325 MG TAB PO PRN (23:43)
[2020-12-02] MEDS ORDERED: ONDANSETRON INJ 2 MG/ML 2 ML VIAL IV PRN (23:43)
[2020-12-02] MEDS ORDERED: NITROGLYCERIN SL 0.4 MG/TAB TAB SL PRN (23:43)
[2020-12-02] MEDS ORDERED: POTASSIUM CHLORIDE CRTAB 20 MEQ TABCR PO STA (23:43)
[2020-12-03] MEDS ORDERED: METOPROLOL SUCC 50MG EXT REL TAB PO ONE (00:15)
[2020-12-03 00:32] LABS: Creatine Kinase MB 2.3 ng/ml (0.5-3.6); Magnesium 2.2 mg/dl (1.8-2.4); NT Pro B Type Natriuretic Pept 11302 pg/ml (0-1800)
[2020-12-03 06:21] LABS: Basophils # (auto) 0.03 K/uL (0-0.2); Basophils % (auto) 0.3 %; Eosinophils # (auto) 0.23 K/uL (0-0.5); Eosinophils % (auto) 2.3 %; Hematocrit (blood only) 38.6 % (37-47); Hemoglobin 12.8 g/dL (12.0-16.0); Immature Granulocytes # (auto) 0.03 K/uL (0.00-0.02); Immature Granulocytes % (auto) 0.3 %; Lymphocytes # (auto) 1.76 K/uL (1.2-3.4); Lymphocytes % (auto) 17.7 %; Mean Corpuscular Hemoglobin 29.3 pg (25-34); Mean Corpuscular Hgb Conc 33.2 g/dL (32-36); Mean Corpuscular Volume 88.3 fL (80-100); Mean Platelet Volume 9.1 fL (7.4-10.4); Monocytes # (auto) 0.74 K/uL (0.11-0.59); Monocytes % (auto) 7.5 %; Neutrophils # (auto) 7.14 K/uL (1.4-6.5); Neutrophils % (auto) 71.9 %; Platelet Count 340 K/uL (130-400); RDW Coefficient of Variation 14.1 % (11.5-14.5); RDW Standard Deviation 45.5 fL (36.4-46.3); Red Blood Count 4.37 M/uL (4.2-5.4); White Blood Count 9.93 K/uL (4.8-10.8)
[2020-12-03 07:20] LABS: BUN Creatinine Ratio 22.7 (10-20); Blood Urea Nitrogen 19 mg/dl (7-18); Calcium 9.1 mg/dl (8.5-10.1); Carbon Dioxide 29 mmol/L (21-32); Chloride 108 mmol/L (98-107); Creatine Kinase MB 2.6 ng/ml (0.5-3.6); Creatinine Clr Calc Pharmacy 51.2 ml/min; Est GFR (Non-African American) 64.7; Glucose 133 mg/dl (70-99); Potassium 3.9 mmol/L (3.5-5.1); Sodium 141 mmol/L (136-145)
--- NOTE | 2020-12-03 08:02 | CT Scan Report ---
CT ANGIOGRAPHY OF THE CHEST, PULMONARY EMBOLUS PROTOCOL CLINICAL HISTORY: Chest Pain, eval for PE COMPARISON STUDY: Chest radiograph November 27, 2020 and December 02, 2020. TECHNIQUE: Following IV administration of 120 mL of Optiray-320, helical axial images of the chest we re obtained utilizing the pulmonary embolus protocol. Maximal intensity projections and sagittal and coronal reformats were viewed on an independent 3D workstation. IV contrast was administered withou t complication. Automated exposure control was utilized for the study. A dose lowering technique wa s utilized adhering to the principles of ALARA. CT DOSE: 516.91 mGy.cm FINDINGS: No pulmonary emboli are identified. There is moderate cardiomegaly. Coronary artery calcif ication is present. There is no pneumothorax. Small left and trace right pleural effusions are noted. Lungs are suboptimally assessed given respiratory motion. There is suspected mild interstitial pulmo nary edema. Mild groundglass opacities within the lungs are noted. Central airways are patent. There are several partially calcified mediastinal and hilar lymph nodes. Bony thorax and upper abdomen are unremarkable. IMPRESSION: 1. No pulmonary emboli identified. 2. Interstitial pulmonary edema. 3. Small left and trace right pleural effusions. 4. Moderate cardiomegaly. ACT 112: Negative or not required by law. Electronically signed by: Azael Lacey M.D. 12/03/2020 8:00 AM
[2020-12-03] MEDS ORDERED: PANTOprazole 40 MG TAB PO SCH (09:00)
[2020-12-03] MEDS ORDERED: ASPIRIN 81 MG ECTAB PO SCH (09:00)
[2020-12-03] MEDS ORDERED: LOSARTAN POTASSIUM 50 MG TAB PO SCH (09:00)
[2020-12-03] MEDS ORDERED: allopurinoL 300 MG TAB PO SCH (09:00)
[2020-12-03] MEDS ORDERED: ATORVASTATIN 40 MG TAB PO SCH (09:00)
[2020-12-03] MEDS ORDERED: SPIRONOLACTONE 25 MG TAB PO SCH (09:00)
[2020-12-03] MEDS ORDERED: CLOPIDOGREL BISULFATE 75 MG TAB PO SCH (09:00)
--- NOTE | 2020-12-03 11:15 | Hospitalist Progress Note ---
Date of Service December 03, 2020 Assessment & Plan Admission and Anticipated Discharge Date Admission Date: December 02, 2020 Results & Data Results & Data ([facility]) Vital Signs (Past 12 Hours) Vital Signs Temp Pulse Pulse Resp BP Pulse Ox 12/03/20 07:15 72 12/03/20 07:09 36.6 C 74 16 140/84 92 12/03/20 03:35 36.9 C 73 18 128/61 93 12/02/20 23:26 36.3 C L 92 H 16 134/82 92
[2020-12-03] MEDS ORDERED: FUROSEMIDE 20 MG in SYRINGE 0 ML IV ONE (11:45)
[2020-12-03 13:28] LABS: Creatine Kinase MB 2.1 ng/ml (0.5-3.6)
[2020-12-03] MEDS ORDERED: ISOSORBIDE MONO EXTENDED REL 30 MG TABCR PO ONE (14:01)
--- NOTE | 2020-12-03 14:03 | Cardiology Consultation ---
Date of Consultation December 03, 2020 Assessment & Plan (1) Acute systolic CHF (congestive heart failure): (2) Cardiomyopathy: (3) CAD (coronary artery disease): (4) S/P coronary artery stent placement: (5) Chest pain: (6) Hypertension: (7) Hyperlipidemia: ASSESSMENT/PLAN: 1. Acute systolic CHF: Based on imaging and history and also response to diuretic, she appears to have developed systolic CHF. We discussed importance of a low-sodium diet, less than 2000 mg daily. Recommend another dose of Lasix 20 mg IV (discussed with Dr. Nance earlier today). If continues to feel well later today, can be discharged home from a cardiac perspective. Will refer her to Heart failure program. The replace losartan with low-dose Entresto. Continue metoprolol succinate. Re-evaluate LV systolic function as an outpatient. On discharge, consider Lasix 20 mg p.o. daily with close follow-up and evaluation of renal function as an outpatient. Continue spironolactone. 2. Cardiomyopathy: [place] to be out of proportion to her underlying CAD. Hopefully LV systolic function improves with medical therapy and time. Repeat echo as an outpatient. Medical therapy as outlined above. 3. CAD s/p LAD and D2 PCI: Had chest discomfort, including a prolonged episode with troponins that are trending downward from initial RI. presentation not consistent with stent thrombosis. Can start low-dose isosorbide mononitrate 30 mg daily for symptomatic control for possibility of small-vessel/branch disease. Continue aspirin 81 mg daily indefinitely. Continue Plavix 75 mg daily for least 1 year. Continue beta-funmilayo and high-intensity statin therapy. 4. Chest pain: As discussed above. Troponins continue to trend downward from initial RI within the past week. Medical therapy as above. May have been due to elevated filling pressures with CHF. 5. Hypertension: Blood pressure initially elevated but now normotensive. Adjusting medical therapy as above. 6. Dyslipidemia: Continue high-intensity statin therapy. 7. Disposition: Can be discharged later today from a cardiac perspective if continues to feel well. Keep follow-up appointment scheduled with. Will be referred to Heart failure program as well. Patient care discussed with Dr. Nance. Today's visit was 50 minutes in duration, including [id number] time, reviewing of record, studies, discussing with primary service, and coordinating care. Thank you for allowing me to participate in the care of your patient. Please call for any other questions or concerns. Sincerely, Jeremy Peralta M.D. History of Present Illness Reason for Consultation: Chest pain with CAD and recent PCI Requesting Physician: Dr. Marshall Attending Physician: Ifeoma Nance MD History of Present Illness Ms. Borja is a pleasant 80-year-old female with history significant for cardiomyopathy, CAD s/p LAD and D2 PCI, hypertension, dyslipidemia, and borderline diabetes. Her primary glass artist is Dr. Sellers. She was hospitalized on 11/28/2020 with acute myocardial infarction and underwent PCI of her mid LAD and proximal D2, also notable to have distal LM CA 40% investigated by IFR. Her LV systolic function was 25-30% with hyperdynamic basal segments and felt that her LV systolic dysfunction was out of proportion to her documented CAD. She had some residual pain following PCI but then the pain had resolved on discharge. She did well at home until approximately 3:00 a.m. on 12/02/2020 when she woke up with chest discomfort. Her chest discomfort felt similar to her myocardial infarction. She when out and sat in a chair and the pain persisted for hours before spontaneously resolving. She also noted shortness of breath and had reported orthopnea. Her chest discomfort was described as a heaviness, also occurring at rest intermittently yesterday in the afternoon, with episodes lasting 10-15 minutes at a time. She had noticed increasing edema over the past few days. On arrival, she was found to be short of breath and hypoxic in the ER. She received nitroglycerin and has not had any further chest discomfort. She also received Lasix 20 mg IV x1 and reports a good diuresis. Her breathing is back to baseline. She denies syncope, near-syncope, palpitations, or bleeding such as melena, hematochezia, hematuria. She denies fevers or chills. She feels back to baseline. She has been compliant with her discharge medications. Review of systems: As above. Review systems otherwise negative/unremarkable. Family history: Sister from [place] at age of 63. Social history: She denies tobacco, alcohol, or drug abuse. Her son lives with her. She has 3 kids. She is a . She was unaccompanied in her hospital room. Allergies Allergy/AdvReac Type Severity Reaction Status Date / Time No Known Allergies Allergy Unknown Verified 12/02/20 19:39 Home Medications Medication Instructions Recorded Confirmed Type allopurinol 300 mg PO QAM 07/13/19 12/02/20 History multivitamin 1 tab PO QAM 07/13/19 12/02/20 History cholecalciferol (vitamin D3) 1,000 unit PO QAM 11/19/19 12/02/20 History [Vitamin D3] aspirin 81 mg PO QAM #30 tab 11/29/20 12/02/20 Rx atorvastatin 40 mg PO QAM #30 tab 11/29/20 12/02/20 Rx clopidogrel 75 mg PO QAM #30 tab 11/29/20 12/02/20 Rx losartan 50 mg PO QAM #30 tab 11/29/20 12/02/20 Rx metoprolol succinate 200 mg PO HS #60 tab 11/29/20 12/02/20 Rx nitroglycerin [Nitrostat] 0.4 mg SUBLINGUAL PRN PRN #30 tab 11/29/20 12/02/20 Rx pantoprazole 40 mg PO DAILY #30 tab 11/29/20 12/02/20 Rx spironolactone 25 mg PO QAM #30 tab 11/29/20 12/02/20 Rx Patient History Medical History (Updated 12/03/20 @ 14:13 by Abhijit Peralta MD) CAD (coronary artery disease) Cardiomyopathy Depression GERD (gastroesophageal reflux disease) controlled Gout Hyperlipidemia Hypertension Osteoarthritis 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 ST elevation myocardial infarction (STEMI) November 2020 s/p MEGGAN to D2 and mid-LAD Surgical History (Updated 12/03/20 @ 14:13 by Abhijit Peralta MD) History of appendectomy History of cataract surgery R/L History of cholecystectomy History of colonoscopy History of hysterectomy TOTAL History of intestinal surgery History of repair of rotator cuff RIGHT History of right hip replacement Right CHRISTINE: 07/22/19: SAB x 1 at L3-L4 at [facility] History of total knee replacement LEFT S/P coronary artery stent placement Family History Brother Family hx of colon cancer Social History Smoking Status: Never smoker Second Hand Exposure: Yes ( was a smoker); Hx Alcohol Use: No Hx Substance Use: No Preferred Language: Mexican Communication Ability: Effective Business Center Representative Required: No Beliefs That Will Affect Care: None marital status: / Current Living Situation: Family Current Living Situation Comment: Pt lives with son Pedro Feels Safe at Home: Yes Assistive Devices: None Physical Exam Physical Exam: Gen.: No acute distress. Alert and oriented. HEENT: Anicteric sclera. Neck: No JVD. No bruits. Normal carotid upstrokes bilaterally. Cardiac: PMI was nonpalpable. No ventricular heave. Regular. Normal S1-S2. No murmurs, rubs, or gallops. Pulmonary: Bibasilar rales, otherwise clear to auscultation bilaterally without wheezes, rales, or rhonchi. Abdomen: Soft, nontender, nondistended, with normoactive bowel sounds. No bruits noted. Extremities: 2+ radial pulses bilaterally. Right radial cath site is clean, dry, and intact without erythema or discharge. 2+ posterior tibialis pulses bilaterally. No edema or cyanosis. Psychiatric: Affect appears appropriate. Results & Data ([facility]) Vital Signs (Past 12 Hours) Vital Signs Temp Pulse Pulse Resp BP Pulse Ox 12/03/20 11:29 36.7 C 67 16 118/75 93 12/03/20 07:15 72 12/03/20 07:09 36.6 C 74 16 140/84 92 12/03/20 03:35 36.9 C 73 18 128/61 93 Intake & Output 12/01/20 12/02/20 12/03/20 12/04/20 06:59 06:59 06:59 06:59 Intake Total 300 / 300 Output Total 900 / 900 Balance -600 / -600 Weight 180 lb 8.937 oz Laboratory Results Laboratory Results - last 24 hr 12/02/20 12/02/20 12/02/20 18:57 18:57 18:57 WBC 11.78 H RBC 4.77 Hgb 14.1 Hct 42.4 MCV 88.9 MCH 29.6 MCHC 33.3 RDW Std Deviation 45.9 RDW Coeff of Nicky 14.2 Plt Count 409 H MPV 9.3 Immature Gran % (Auto) 0.3 Neut % (Auto) 70.0 Lymph % (Auto) 23.1 [place] % (Auto) 4.4 Eos % (Auto) 2.0 Baso % (Auto) 0.2 Neut # (Auto) 8.25 H Lymph # (Auto) 2.72 [place] # (Auto) 0.52 Eos # (Auto) 0.23 Baso # (Auto) 0.02 Immature Gran # (Auto) 0.04 H PT 10.9 INR 1.0 APTT 23.6 PTT Ratio 0.8 Sodium 140 Potassium 3.3 L Chloride 105 Carbon Dioxide 29 Anion Gap 6.0 BUN 22 H Creatinine 1.06 Est Cr Clr Drug Dosing 40.8 Est GFR ( Amer) 56.6 Est GFR (Non-Af Amer) 48.9 BUN/Creatinine Ratio 20.5 H Glucose 199 H Calcium 9.9 Magnesium 2.2 CK-MB (CK-2) 2.3 CK/CKMB % Calc Not Reportable Troponin I 1.940 H* NT-Pro-B Natriuret Pep 94827 H Lipase 167 COVID-19 Eval Order SARS-CoV-2, RNA, NAAT 12/02/20 12/02/20 12/03/20 22:00 22:00 05:27 WBC 9.93 RBC 4.37 Hgb 12.8 Hct 38.6 MCV 88.3 MCH 29.3 MCHC 33.2 RDW Std Deviation 45.5 RDW Coeff of Nicky 14.1 Plt Count 340 MPV 9.1 Immature Gran % (Auto) 0.3 Neut % (Auto) 71.9 Lymph % (Auto) 17.7 [place] % (Auto) 7.5 Eos % (Auto) 2.3 Baso % (Auto) 0.3 Neut # (Auto) 7.14 H Lymph # (Auto) 1.76 [place] # (Auto) 0.74 H Eos # (Auto) 0.23 Baso # (Auto) 0.03 Immature Gran # (Auto) 0.03 H PT INR APTT PTT Ratio Sodium Potassium Chloride Carbon Dioxide Anion Gap BUN Creatinine Est Cr Clr Drug Dosing Est GFR ( Amer) Est GFR (Non-Af Amer) BUN/Creatinine Ratio Glucose Calcium Magnesium CK-MB (CK-2) CK/CKMB % Calc Troponin I NT-Pro-B Natriuret Pep Lipase COVID-19 Eval [facility] SARS-CoV-2, RNA, NAAT NEGATIVE 12/03/20 12/03/20 05:27 12:28 WBC RBC Hgb Hct MCV MCH MCHC RDW Std Deviation RDW Coeff of Nicky Plt Count MPV Immature Gran % (Auto) Neut % (Auto) Lymph % (Auto) [place] % (Auto) Eos % (Auto) Baso % (Auto) Neut # (Auto) Lymph # (Auto) [place] # (Auto) Eos # (Auto) Baso # (Auto) Immature Gran # (Auto) PT INR APTT PTT Ratio Sodium 141 Potassium 3.9 D Chloride 108 H Carbon Dioxide 29 Anion Gap 4.0 BUN 19 H Creatinine 0.84 Est Cr Clr Drug Dosing 51.2 Est GFR ( Amer) 75.0 Est GFR (Non-Af Amer) 64.7 BUN/Creatinine Ratio 22.7 H Glucose 133 H Calcium 9.1 Magnesium CK-MB (CK-2) 2.6 2.1 CK/CKMB % Calc Troponin I 1.420 H* 1.050 H* NT-Pro-B Natriuret Pep Lipase COVID-19 Eval Order SARS-CoV-2, RNA, NAAT Diagnostic Findings On 12/03/2020, chart, echo report, cardiac catheterization report, and discharge summary from 11/29/2020 personally reviewed. Telemetry personally reviewed: Sinus rhythm. No arrhythmia. ECGs personally reviewed:. 12/02/2020 at 8:23 p.m.: Sinus tachycardia 107 beats per minute. First-degree AV block. Anterior T-wave inversion. ECG 12/02/2020 at 6:57 p.m.: Sinus tachycardia 111 beats per minute. Anterior T-wave inversion. ECG 12/02/2020 at 7:21 p.m.: Sinus tachycardia 101 beats per minute. Anterior T-wave inversion. CTA 12/02/2020: No PE. Interstitial pulmonary edema. Medications Administered Current Inpatient Medications Acetaminophen (Acetaminophen 325 Mg Tab) 650 mg PO Q4H PRN PRN Reason: Pain or Fever Stop: 01/01/21 23:42 Allopurinol ([facility]ol 300 Mg Tab) [facility]: 01/02/21 08:59 Last Admin: 12/03/20 08:24 Dose: 300 mg Documented by: Aspirin (Aspirin 81 Mg Ectab) [facility] [place] Stop: 01/02/21 08:59 Last Admin: 12/03/20 08:25 Dose: 81 mg Documented by: Atorvastatin Calcium (Atorvastatin 40 Mg Tab) [facility] [place] Stop: 01/02/21 08:59 Last Admin: 12/03/20 08:24 Dose: 40 mg Documented by: Clopidogrel Bisulfate (Clopidogrel Bisulfate 75 Mg Tab) 75 mg PO QAM [facility] Stop: 01/02/21 08:59 Last Admin: 12/03/20 08:25 Dose: 75 mg Documented by: Isosorbide Mononitrate (Isosorbide [place] Extended Rel 30 Mg Tabcr) 30 mg PO QAM [facility] Stop: 01/03/21 08:59 Metoprolol Succinate (Metoprolol Succ 50mg Ext Rel Tab) 200 mg PO [facility] Stop: 01/02/21 20:59 Nitroglycerin (Nitroglycerin Sl 0.4 Mg/Tab Tab) 0.4 mg SL PRN PRN PRN Reason: chest pain Stop: 01/01/21 23:42 Ondansetron HCl (Ondansetron Inj 2 Mg/Ml 2 Ml Vial) 4 mg IV Q6H PRN PRN Reason: Nausea Stop: 01/01/21 23:42 Pantoprazole Sodium (Pantoprazole 40 Mg Tab) 40 mg PO DAILY [facility] Stop: 01/02/21 08:59 Last Admin: 12/03/20 08:24 Dose: 40 mg Documented by: Sacubitril/Valsartan (Sacubitril-Valsartan 24-26 Mg Tab) 1 tab PO BID [facility] Stop: 01/02/21 20:59 Spironolactone (Spironolactone 25 Mg Tab) 25 mg PO [facility] Stop: 01/02/21 08:59 Last Admin: 12/03/20 08:25 Dose: 25 mg Documented by: PG Care Time/CCT Total # of Minutes Spent Total Time Spent with Patient: Total time spent is greater than 50% in coordina tion of care (as documented) at patient's floor/unit and/or counseling patient: Coding Level of Care Code 80615 Office/Outpt Visit, Est Diagnoses Acute systolic CHF (congestive heart failure) I50.21 Cardiomyopathy I42.9 CAD (coronary artery disease) I25.10 Coronary Disease-Associated Artery/Lesion type: [place] artery [place] vs. transplanted heart: [place] heart Associated angina: without angina S/P coronary artery stent placement Z95.5 Chest pain R07.9 Chest pain type: unspecified Hypertension I10 Hypertension type: essential hypertension Hyperlipidemia E78.5 Hyperlipidemia type: unspecified (1) CAD (coronary artery disease) Coronary Disease-Associated Artery/Lesion type: [place] artery [place] vs. transplanted heart: [place] heart Associated angina: without angina Qualified Code(s): I25.10 - Atherosclerotic heart disease of [place] coronary artery without angina pectoris (2) Chest pain Chest pain type: unspecified Qualified Code(s): R07.9 - Chest pain, unspecified (3) Hypertension Hypertension type: essential hypertension Qualified Code(s): I10 - Essential (primary) hypertension (4) Hyperlipidemia Hyperlipidemia type: unspecified Qualified Code(s): E78.5 - Hyperlipidemia, unspecified
--- NOTE | 2020-12-03 15:25 | Discharge Summary ---
Date of Service December 03, 2020 Admission HPI Per Admitting Provider Shaina Borja is an 80yo female with history fo HTN, HLP, GERD presenting with chest pain and SOB. Patient initially presented to [facility] on 11/28/20 with complaint of chest pain. Her EKG at that time was concerning for anterior STEMI. Code Heart was activated and the patient was taken for cardiac catheterization. She was found to have multivessel coronary artery disease with 95% acute proximal D2 occlusion - culprit vessel as well as 80% mid LAD and 40% distal left main disease. She had a MEGGAN x 1 placed to D2 vessel and MEGGAN x 1 to mid- LAD. An echocardiogram was performed which revealed moderate to severely reduced with moderate asymmetric LV hypertrophy - EF of 25-30%. 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 Elevated RVSP of 40-50mmHg. No significant valvular pathology. Patient did well during her hospital stay. She was discharged home on 11/29/20 on DAPT with ASA and Plavix, started on Toprol XL-200mg daily, Losartan 50mg daily and Spironolactone 25mg daily and a high intensity statin. Patient reports compliance with her medications and has not missed any doses. She returns today with left sided chest discomfort as well as SOB ongoing x 2 days. She reports intermittent left sided chest pressure, 7/10 in severity that last several minutes. She denies diaphoresis/nausea/SOB or dizziness during these episodes. Pain is non-positional and non-exertional but is somewhat pleuritic at times. She also notes some shortness of breath and orthopnea as well as a dry cough. She denies fevers/chills/sweats/palpitations/nausea/vomiting/diarrhea. No additional complaints at this time. ER Course: ASA 32mg, Nitro 0.4mg, NSS x 1L, Lasix 20mg IV, KCL 20mg PO Admission Exam Per Admitting Provider General: patient resting comfortably, NAD, non-toxic in appearance, AA&O x 4 Skin: warm, dry, intact, no rashes or lesions, slight bruising right radial artery, no hematoma HEENT: NC/AT, PERRL, EOMI, anicteric sclera, conjunctiva without injection, external ear normal to inspection and nontender, nares patent, moist mucus membranes, dentition intact, no oropharyngeal lesions, neck supple, trachea midline, no LAD, no thyromegaly, no JVD Heart: +S1/S2, regular, no m/r/g, no reproducible chest wall pain Lungs: equal air entry bilaterally, no rales/rhonchi/wheezes Abd: +BS, soft, NT/ND, no masses/organomegaly/ascites Ext: warm, 2+ pulses in UE/LE bilaterally, no clubbing/cyanosis or edema Neuro: nonfocal, patient AA&O x 4, speech intact, no facial droop, moving all extremities on command with equal strength 5/5 Principal Diagnosis congestive heart failure exacerbation Discharge Exam Constitutional: obese, in no apparent distress, sitting comfortably in bedside chair Eyes: EOMI, pupils equal and reactive bilaterally, no scleral icterus Cardiac: RRR, no murmurs, gallops or rubs. Normal S1, S2 Pulm: CTA BL, no wheezes, rhonchi, crackles or rubs, moving air well throughout both lungs Abd: soft, nontender, nondistended, normal bowel sounds, no rebound or guarding Extremities: 2+ peripheral pulses, no edema Neuro: no focal deficits, moving all 4 limbs, A&Ox3 Discharge Data Allergies Allergy/AdvReac Type Severity Reaction Status Date / Time No Known Allergies Allergy Unknown Verified 12/02/20 19:39 Consultations 12/02/20 21:12 ED Decision to Admit Stat 12/02/20 23:43 Consult Cardiology Routine Ordered Studies 12/02/20 18:57 CT angio chest PE protocol Stat Hospital Course (1) Acute systolic CHF (congestive heart failure): Ms. Merritt is an 80 yo F with a recent hx of PA requiring MEGGAN placement in the D2 and mid-LAD arteries, hx of GERD, HLD, Cardiomyopathy who was admitted to the hospital for shortness of breath and chest tightness found to be due to a CHF exacerbation. Acute on chronic systolic CHF Exacerbation Symptoms improved with 3 doses of 20 mg IV lasix and led to a considerable increase in urine output. 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 Her medications were changed to be more aligned with optimal heart failure management. Serial troponins followed during admission without concern for stent occlusion. Medication changes Stopped - Losartan Started - Entresto 24/26 mg BID, Lasix 20 mg PO daily Patient was instructed to expect follow up with heart failure clinic and repeat BMP in approximately 1 week to check creatinine and electrolytes. All other medical conditions managed per home regimen. (2) S/P coronary artery stent placement: (3) Cardiomyopathy: (4) Hypertension: (5) Hyperlipidemia: (6) GERD (gastroesophageal reflux disease): (7) Gout: (8) Depression: (9) Hypoxia: Total Time Total Time Spent Total Time Spent (In Minutes): see attending attestation Discharge Plan Discharge Items Patient Disposition: Home - Self-Care Reason For Visit: CHEST PAIN,RECENT STENT PLACEMENT Discharge Diagnosis: Congestive Heart Failure Exacerbation Activity: Resume your previous activity Non-emergency contact: Primary Care Provider and Commercial Director Call non-emergency contact if: you have any medication questions and your symptoms worsen Follow-up/Referrals: Connie Bay MD [Primary Care Provider] - Jacqui Fuentes PA-C [Physician Roof Fitter] - (within 1 week of discharge, CHF exacerbation) Diet: Heart Healthy and Low Sodium (2gm) Addtl Attending Provider Instructions: You were seen in the hospital for shortness of breath and chest tightness due to fluid accumulation in the bottom of both of your lungs. This fluid was able to be removed using a water pill. You will be taking 1 tab of this pill daily going forward to help reduce the amount of fluid you retain. It is important for you to be on a low salt diet and avoid salty foods like lunch meat, anything pickled or canned, and restaurant or processed foods because their salt content will cause you to retain water and be short of breath like this. Continue taking the medications that were started after your stent placements earlier this week (aspirin and plavix). You were started on a new medication called Entresto, which is taken 1 tab twice a day to help your heart get stronger. Because this will help your blood pressure control, your Losartan was stopped. You are scheduled to get labwork completed on 12/06/20 to make sure your electrolytes stay within normal range. You will be scheduled with the heart failure clinic to follow your symptoms and medication management and follow up on lab work. Stopped Medication: Losartan New Medication: Entresto 1 tab twice a day, Lasix 20 mg once a day Pending Studies at Discharge: No Stand-Alone Forms: My [facility], Smoking Cessation Medications and DC Order Prescriptions: New Entresto 24-26 mg Tablet 1 tab PO BID 30 Days Qty: 60 RF: 0 furosemide 20 mg tablet 20 mg PO DAILY Qty: 30 RF: 0 Continued atorvastatin 40 mg Tablet 40 mg PO QAM Qty: 30 RF: 6 clopidogrel 75 mg Tablet 75 mg PO QAM Qty: 30 RF: 6 aspirin 81 mg Tablet,Delayed Release (Dr/Ec) 81 mg PO QAM Qty: 30 RF: 11 spironolactone 25 mg Tablet 25 mg PO QAM Qty: 30 RF: 3 pantoprazole 40 mg Tablet,Delayed Release (Dr/Ec) 40 mg PO DAILY Qty: 30 RF: 1 nitroglycerin [Nitrostat] 0.4 mg Tablet, Sublingual 0.4 mg sublingual PRN PRN (Reason: chest pain) Qty: 30 RF: 1 metoprolol succinate 100 mg Tablet Extended Release 24 Hr 200 mg PO HS Qty: 60 RF: 6 multivitamin Tablet 1 tab PO QAM RF: 0 allopurinol 300 mg Tablet 300 mg PO QAM RF: 0 cholecalciferol (vitamin D3) [Vitamin D3] 1,000 unit Tablet,Chewable 1,000 unit PO QAM RF: 0 Discontinued losartan 50 mg tablet 50 mg PO QAM Qty: 30 RF: 6 Discharge Orders: Discharge Order (Routine); Ordered 12/03/20 Ordered By: Alysia Rosa/Radha Patient Handouts: What Is Angina? Admission Data Admit Date/Time: 12/02/20 21:32 Attending Provider: Ifeoma Nance Admit Provider: Erlinda Marshall Primary Care Provider: Connie Bay Other Providers: Erlinda Marshall ; Abhijit Peralta ; Alysia Green Other Interventions: Discharge Summary Assessment (RN) Last Done: 12/03/20 15:30 Supervising Physician Co-Signing Physician Notes Resident Physician Supervision Note: I independently interviewed and examined the patient and verified the [place] history and physical, reviewed labs and image studies, discussed the case with the resident Dr. Green and agree with the findings and care plan. Resident Activity Tracking Resident Involvement: Resident Care Provided Care Provided: Adult Hospital Medicine
[2020-12-03] MEDS ORDERED: METOPROLOL SUCC 50MG EXT REL TAB PO SCH (21:00)
[2020-12-03] MEDS ORDERED: SACUBITRIL-VALSARTAN 24-26 MG TAB PO SCH (21:00)
--- NOTE | 2020-12-04 05:56 | Electrocardiogram Report ---
Test Reason : Blood Pressure : / mmHG Vent. Rate : 101 BPM Atrial Rate : 101 BPM P-R Int : 194 ms QRS Dur : 076 ms QT Int : 360 ms P-R-T Axes : 050 -19 035 degrees QTc Int : 466 ms Sinus tachycardia Low voltage QRS T wave abnormality, consider anterior ischemia Abnormal ECG When compared with ECG of 02-DEC-2020 18:57, No significant change was found Confirmed by Abhijit Peralta ([id number]) on 12/04/2020 5:56:38 AM Referred By: REFERRED SELF Confirmed By:Abhijit Peralta
--- NOTE | 2020-12-04 05:56 | Electrocardiogram Report ---
Test Reason : Blood Pressure : / mmHG Vent. Rate : 111 BPM Atrial Rate : 111 BPM P-R Int : 186 ms QRS Dur : 086 ms QT Int : 342 ms P-R-T Axes : 050 -04 055 degrees QTc Int : 465 ms Sinus tachycardia Low voltage QRS T wave abnormality, consider anterior ischemia Abnormal ECG When compared with ECG of 28-NOV-2020 01:52, CA interval has increased Minimal criteria for Anteroseptal infarct are no longer Present T wave inversion now evident in Anterior leads Confirmed by Abhijit Peralta ([id number]) on 12/04/2020 5:56:12 AM Referred By: REFERRED SELF Confirmed By:Abhijit Peralta
--- NOTE | 2020-12-04 05:57 | Electrocardiogram Report ---
Test Reason : Blood Pressure : / mmHG Vent. Rate : 107 BPM Atrial Rate : 107 BPM P-R Int : 214 ms QRS Dur : 076 ms QT Int : 338 ms P-R-T Axes : 048 -19 050 degrees QTc Int : 451 ms Sinus tachycardia with 1st degree A-V block Low voltage QRS T wave abnormality, consider anterior ischemia Abnormal ECG When compared with ECG of 02-DEC-2020 19:21, No significant change was found Confirmed by Abhijit Peralta ([id number]) on 12/04/2020 5:57:36 AM Referred By: REFERRED SELF Confirmed By:Abhijit Peralta
[2020-12-04] MEDS ORDERED: ISOSORBIDE MONO EXTENDED REL 30 MG TABCR PO SCH (09:00)
== END 2020-12-03 15:57 | disposition home or self-care (01) ==
LOC: 2S 18:49 → ED 18:49 → SUATTDRO 21:32 → 2S 23:08

== ENCOUNTER 2022-09-08 12:29 | Inpatient (IN) ==
--- NOTE | 2022-09-08 14:06 | Emergency Department Note ---
History of Present Illness General Chief complaint: Illness Stated complaint: COUGH,CHEST PAIN Time Seen by Provider: 09/08/22 13:28 Source: patient and family (son who is at bedside) Mode of arrival: ambulatory Limitations: no limitations History of Present Illness Maximum Pain Intensity: 5 This patient is an 82-year-old female comes in after a cough for about 3 weeks. She is very frustrated. She has been to the ER once and somewhere else once as well as seeing her primary doctor twice. She was diagnosed at 1 point with a pneumonia in her right lung. She has been on antibiotics and nothing seems to be helping she was given inhaler without much relief she is never used inhalers before and has no history of underlying lung disease. She has a history of cardiac disease but has no significant chest pain nothing particular makes her symptoms better or worse she has been much nonproductive the cost been particularly bad over the last 2 days. No pain or swelling in her legs no trauma or injury. No nausea or vomiting. Home Medications Medication Instructions Recorded Confirmed Type allopurinol 300 mg tablet 300 mg PO QAM 07/13/19 09/08/22 History multivitamin 1 tab PO QAM 07/13/19 09/08/22 History cholecalciferol (vitamin D3) 25 1,000 unit PO QAM 11/19/19 09/08/22 History mcg (1,000 unit) chewable tablet (Vitamin D3) aspirin 81 mg tablet,delayed 81 mg PO QAM #30 tabs 11/29/20 09/08/22 Rx release nitroglycerin 0.4 mg sublingual 0.4 mg sublingual PRN PRN chest 11/29/20 09/08/22 Rx tablet (Nitrostat) pain #30 tabs losartan 50 mg tablet 50 mg PO DAILY 12/07/20 09/08/22 History metoprolol succinate 100 mg 200 mg PO HS #180 tabs 03/05/21 09/08/22 Rx tablet,extended release 24 hr pantoprazole 40 mg tablet,delayed See Rx Instructions .Route 03/05/21 09/08/22 Rx release .COMPLEX #90 tabs furosemide 20 mg tablet 20 mg PO DAILY PRN edema #90 tabs 04/19/21 09/08/22 Rx atorvastatin 40 mg tablet 40 mg PO QAM #90 tabs 07/15/22 09/08/22 Rx amoxicillin 500 mg capsule 500 mg PO BID #14 caps 08/30/22 09/08/22 Rx benzonatate 200 mg capsule 200 mg PO BID PRN cough #20 caps 08/30/22 09/08/22 Rx Allergies Allergy/AdvReac Type Severity Reaction Status Date / Time No Known Allergies Allergy Unknown Verified 06/20/22 13:07 Past Med/Surg History Medical History CAD (coronary artery disease) Cardiomyopathy Chest pain Depression GERD (gastroesophageal reflux disease) controlled Gout Hyperlipidemia Hypertension Hypoxia Osteoarthritis 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 ST elevation myocardial infarction (STEMI) November 2020 s/p MEGGAN to D2 and mid-LAD Surgical History History of appendectomy History of cataract surgery R/L History of cholecystectomy History of colonoscopy History of hysterectomy TOTAL History of intestinal surgery History of repair of rotator cuff RIGHT History of right hip replacement Right CHRISTINE: 07/22/19: SAB x 1 at L3-L4 at [facility] History of total knee replacement LEFT S/P coronary artery stent placement Family History Brother Family hx of colon cancer Sister Myocardial infarction Social History Smoking Status: Never smoker Second Hand Exposure: Yes ( was a smoker); Hx Alcohol Use: No Hx Substance Use: No Preferred Language: Malagasy Communication Ability: Effective Vehicle Operator Required: No Beliefs That Will Affect Care: None marital status: / Current Living Situation: Family Current Living Situation Comment: Pt lives with son Pedro current occupation: RETIRED Feels Safe at Home: Yes Assistive Devices: None Review of Systems A total of 10 systems reviewed and were otherwise negative Physical Exam Vital Signs Vital Signs - 24 hr 09/08/22 12:35 09/08/22 13:03 09/08/22 14:42 Temperature 36.2 C L Temperature Source Oral Pulse Rate 112 H Pulse Rate [Apical] 108 H 100 H Pulse Rhythm Regular Pulse Rhythm [Apical] Regular Pulse Strength Normal Respiratory Rate Respiratory Effort / Characteristics Labored Blood Pressure 158/84 H Blood Pressure [Left Arm] 192/111 H Blood Pressure Mean 108 Blood Pressure Mean [Left Arm] 138 Blood Pressure Position Sitting Pulse Oximetry 93 96 96 Oxygen Delivery Method Room Air Room Air Room Air Sepsis Recent Fever Within 48 Hours No Sepsis New/Unexplained Change in Mental Status No Sepsis Action Taken by Nursing No Action Required General: Well developed well nourished older female who is coughing with a hacking cough but otherwise appears in no acute distress, breathing comfortably on room air. Normal speech HEENT: Normal cephalic atraumatic. Pupils are equal round and reactive to light. Extraocular movements are intact. Oropharynx is pink with moist mucous membranes. No swelling of the mouth lips or tongue. Neck: Supple with a midline trachea. No meningeal signs or stiffness, no JVD or bruits. No Stridor. Chest: Clear to auscultation bilaterally. No wheezes or rhonchi. No increased work of breathing. Heart: Regular rate and rhythm without murmurs or gallops. Abdomen: Soft nontender, nondistended without rebound guarding or rigidity. Extremities: No cyanosis clubbing or edema. No calf tenderness or assymetry Spine/Back. Non tender to palpation. No CVA tenderness Skin: Good turgor without rashes. Neurologic exam: Cranial nerves two through 12 are intact. Motor and sensation are intact and symmetrical throughout. Course Administered Medications Discontinued Medications Hydrocodone Bit/Homatropine Methylb (Hydrocodone/Homatropine Syrup 5mg/1.5mg 5ml Udp) 5 ml PO NOW STA Stop: 09/08/22 15:04 Last Admin: 09/08/22 15:25 Dose: 5 ml Documented By: YASMEEN Cefepime HCl (Maxipime) 2,000 mg in 20 mls @ 5 mls/min IV NOW STA; Protocol Stop: 09/08/22 15:39 Last Admin: 09/08/22 16:13 Dose: 5 mls/min Documented By: YASMEEN Medical Decision Making Differential Diagnosis Cough, bronchitis, pneumonia, cardiac disease, CHF, infection, electrolyte or metabolic Medical Records Attestation: I reviewed the patient's medical records. Home Medications Current Medication List: was personally reviewed by me Laboratory Data Attestation: I reviewed the patient's lab results. Result diagrams: 09/08/22 14:38 09/08/22 14:38 Lab Results 09/08/22 09/08/22 09/08/22 Range/Units 14:15 14:38 14:38 WBC 27.67 H (4.8-10.8) K/ul RBC 5.10 (3.93-5.22) M/uL Hgb 14.6 (12.0-16.0) g/dl Hct 42.8 (34.1-44.9) % MCV 83.9 (80.0-100.0) fL MCH 28.6 (25.0-34.0) pg MCHC 34.1 (32.0-36.0) g/dL RDW Std Deviation 43.2 (36.4-46.3) fL RDW Coeff of Nicky 14.1 (11.5-14.5) % Plt Count 386 (130-400) K/uL MPV 9.7 (9.4-12.3) fL Immature Gran % (Auto) 0.9 % Neut % (Auto) 88.2 % Lymph % (Auto) 5.1 % Sebastian % (Auto) 5.6 % Eos % (Auto) 0.0 % Baso % (Auto) 0.2 % Neut # (Auto) 24.39 H (1.4-6.5) K/uL Lymph # (Auto) 1.41 (1.2-3.4) K/uL Sebastian # (Auto) 1.56 H (0.24-0.82) K/uL Eos # (Auto) 0.01 (0-0.50) K/uL Baso # (Auto) 0.06 (0-0.2) K/uL Immature Gran # (Auto) 0.24 H (0.00-0.02) K/uL Toxic Vacuolation 1+ Echinocytes 2+ Acanthocytes (Spur) 1+ Sodium 135 L (136-145) mmol/L Potassium 4.0 (3.5-5.1) mmol/L Chloride 100 (98-107) mmol/L Carbon Dioxide 25 (21-32) mmol/L Anion Gap 10 (3-11) BUN 21 (6-23) mg/dl Creatinine 0.85 (0.6-1.2) mg/dl Est Cr Clr Drug Dosing Not Reportable Est GFR ( Amer) 72.9 ml/min Est GFR (Non-Af Amer) 62.9 ml/min BUN/Creatinine Ratio 24.7 H (10-20) Glucose 150 H (70-99(Fasting)) mg/dl Lactate (0.4-2.0) mmol/L Calcium 9.8 (8.5-10.1) mg/dl Magnesium 1.8 (1.7-2.4) mg/dl Total Bilirubin 0.7 (0.2-1.0) mg/dl Direct Bilirubin 0.1 (0-0.2) mg/dl AST 9 L (13-39) U/L ALT 11 (7-52) U/L Alkaline Phosphatase 101 (34-104) U/L Troponin I High Sens 9.5 (0-14) pg/ml B-Natriuretic Peptide (0-100) pg/ml Total Protein 7.1 (6.0-8.3) gm/dl Albumin 3.5 (3.4-5.0) gm/dl Procalcitonin (0-0.5) ng/ml Adenovirus (PCR) Not Detected (NotDetected) B. pertussis DNA (PCR) Not Detected (NotDetected) B.parapertussis DNA PCR Not Detected (NotDetected) C. pneumoniae DNA (PCR) Not Detected (NotDetected) Coronavirus OC43 (PCR) Not Detected (NotDetected) Coronavirus HKU1 (PCR) Not Detected (NotDetected) Coronavirus 229E (PCR) Not Detected (NotDetected) SARS-CoV-2 (PCR) Not Detected (NotDetected) Coronavirus NL63 (PCR) Not Detected (NotDetected) Human Metapneumovir PCR Not Detected (NotDetected) Influenza Type A (PCR) Not Detected (NotDetected) Influenza Type B (PCR) Not Detected (NotDetected) M. pneumoniae (PCR) Not Detected (NotDetected) Parainfluenza 1 (PCR) Not Detected (NotDetected) Parainfluenza 2 (PCR) Not Detected (NotDetected) Parainfluenza 3 (PCR) Not Detected (NotDetected) Parainfluenza 4 (PCR) Not Detected (NotDetected) RSV (PCR) Not Detected (NotDetected) Entero/Rhino (PCR) Not Detected (NotDetected) 10/23/22 10/23/22 10/23/22 Range/Units 14:38 14:38 14:38 WBC (4.8-10.8) K/ul RBC (3.93-5.22) M/uL Hgb (12.0-16.0) g/dl Hct (34.1-44.9) % MCV (80.0-100.0) fL MCH (25.0-34.0) pg MCHC (32.0-36.0) g/dL RDW Std Deviation (36.4-46.3) fL RDW Coeff of Nicky (11.5-14.5) % Plt Count (130-400) K/uL MPV (9.4-12.3) fL Immature Gran % (Auto) % Neut % (Auto) % Lymph % (Auto) % Sebastian % (Auto) % Eos % (Auto) % Baso % (Auto) % Neut # (Auto) (1.4-6.5) K/uL Lymph # (Auto) (1.2-3.4) K/uL Sebastian # (Auto) (0.24-0.82) K/uL Eos # (Auto) (0-0.50) K/uL Baso # (Auto) (0-0.2) K/uL Immature Gran # (Auto) (0.00-0.02) K/uL Toxic Vacuolation Echinocytes Acanthocytes (Spur) Sodium (136-145) mmol/L Potassium (3.5-5.1) mmol/L Chloride (98-107) mmol/L Carbon Dioxide (21-32) mmol/L Anion Gap (3-11) BUN (6-23) mg/dl Creatinine (0.6-1.2) mg/dl Est Cr Clr Drug Dosing Est GFR ( Amer) ml/min Est GFR (Non-Af Amer) ml/min BUN/Creatinine Ratio (10-20) Glucose (70-99(Fasting)) mg/dl Lactate 1.6 (0.4-2.0) mmol/L Calcium (8.5-10.1) mg/dl Magnesium (1.7-2.4) mg/dl Total Bilirubin (0.2-1.0) mg/dl Direct Bilirubin (0-0.2) mg/dl AST (13-39) U/L ALT (7-52) U/L Alkaline Phosphatase (34-104) U/L Troponin I High Sens (0-14) pg/ml B-Natriuretic Peptide 204 H (0-100) pg/ml Total Protein (6.0-8.3) gm/dl Albumin (3.4-5.0) gm/dl Procalcitonin < 0.05 (0-0.5) ng/ml Adenovirus (PCR) (NotDetected) B. pertussis DNA (PCR) (NotDetected) B.parapertussis DNA PCR (NotDetected) C. pneumoniae DNA (PCR) (NotDetected) Coronavirus OC43 (PCR) (NotDetected) Coronavirus HKU1 (PCR) (NotDetected) Coronavirus 229E (PCR) (NotDetected) SARS-CoV-2 (PCR) (NotDetected) Coronavirus NL63 (PCR) (NotDetected) Human Metapneumovir PCR (NotDetected) Influenza Type A (PCR) (NotDetected) Influenza Type B (PCR) (NotDetected) M. pneumoniae (PCR) (NotDetected) Parainfluenza 1 (PCR) (NotDetected) Parainfluenza 2 (PCR) (NotDetected) Parainfluenza 3 (PCR) (NotDetected) Parainfluenza 4 (PCR) (NotDetected) RSV (PCR) (NotDetected) Entero/Rhino (PCR) (NotDetected) Imaging Data Attestation: I personally reviewed and interpreted this imaging study as follows: My Impression: Chest x-raycardiomegaly. There is consolidation in the left base with a pleural effusion likely Radiologist's Impression: Chest X-Ray 09/08/22 14:01 SINGLE VIEW CHEST CLINICAL HISTORY: Sepsis. FINDINGS: An AP, portable, upright chest radiograph is compared to study dated 08/30/2010. Correlation is made with chest CT dated 12/02/2020. The heart is enlarged noting atherosclerotic calcification of the thoracic aorta. The pulmonary vasculature is none congestive. Chronic interstitial thickening is similar to previous. There is a left pleural effusion with left basilar consolidation. The right lung appears clear noting dependent atelectasis. No pneumothorax is seen. The skeletal structures are osteopenic. The bony thorax is grossly intact. IMPRESSION: 1. Cardiomegaly without radiographic evidence of congestive failure. 2. Left pleural effusion with left basilar consolidation. This could represent atelectasis and/or pneumonia/aspiration pneumonitis. Clinical correlation will be required. Radiographic follow-up to resolution is recommended. ACT 112: Negative or not required by law. Electronically signed by: Liam Hill M.D. 09/08/2022 3:37 PM ECG Data Attestation: I personally reviewed and interpreted this ECG as follows: Indication: + SOB/dyspnea Rate (beats per minute): 107 Rhythm: + sinus tachycardia ECG Intervals/blocks: + Normal QRS, + Normal QT and + Normal CT ECG [place]: + Normal ECG ST segments: + Nonspecific ST abnormalities ECG Findings: no PACs or no PVCs Comparison ECG Date: from (12/02/20) Change: the following changes noted (Anterior T wave inversions have improved) MDM Narrative This patient comes in complaint of a persistent cough besides cough when she looks well she is not hypoxemic. Lungs are clear. She has no history of reactive airway disease. IV access were established EKG multiple blood test including blood cultures were obtained I did do a bio fire given her ongoing cough to look for specific respiratory pathogens. She tells me she never been COVID tested. EKG does not show any definite ischemic changes and troponin is negative. Her white count back significantly elevated 27,000 concerning for infection. She was given Hycodan syrup for cough and that helped greatly while she was here. Her chest x-ray shows what appears to be a pneumonia in the left base with an effusion. Her lactic acid And procalcitonin are not elevated. She was given IV cefepime 2 g for her pneumonia. She has tried azithromycin, amoxicillin and doxycycline all as an outpatient. She is had 4 provider visits and continues to have symptoms I do think she needs to be admitted given her ongoing symptoms her white count 27,000 her age of 82 and her pneumonia. I have consulted Dr. Valentine to see the patient in the ER for these measures Continuous cardiac monitoring: Orders placed in EMR for continuous cardiac monitoring. Upon my interpretation patient was interviewed normal sinus rhythm with a rate of 90 Impression & Plan Pneumonia, Cough, Lab test negative for COVID-19 virus, History of coronary artery disease, Elevated WBC count Discharge Plan Visit Data Chief Complaint: Illness Stated Complaint: COUGH,CHEST PAIN ED Provider: Humza Garcia Discharge Problem: Pneumonia, Cough, Lab test negative for COVID-19 virus, History of coronary artery disease, Elevated WBC count Forms Stand Alone Forms: My [facility] [place] Prescriptions Prescriptions: No Action metoprolol succinate 100 mg tablet extended release 24 hr 200 mg PO HS Qty: 180 3RF pantoprazole 40 mg tablet,delayed release (DR/EC) See Rx Instructions .ROUTE .COMPLEX Qty: 90 3RF Dose Instruction: TAKE 1 TABLET BY MOUTH EVERY DAY Rx Instructions: TAKE 1 TABLET BY MOUTH EVERY DAY atorvastatin 40 mg tablet 40 mg PO QAM Qty: 90 3RF furosemide 20 mg tablet 20 mg PO DAILY PRN (Reason: edema) Qty: 90 3RF losartan 50 mg tablet 50 mg PO DAILY aspirin 81 mg Tablet,Delayed Release (Dr/Ec) 81 mg PO QAM Qty: 30 11RF nitroglycerin [Nitrostat] 0.4 mg Tablet, Sublingual 0.4 mg sublingual PRN PRN (Reason: chest pain) Qty: 30 1RF multivitamin Tablet 1 tab PO QAM allopurinol 300 mg Tablet 300 mg PO QAM cholecalciferol (vitamin D3) [Vitamin D3] 1,000 unit Tablet,Chewable 1,000 unit PO QAM amoxicillin 500 mg capsule 500 mg PO BID Qty: 14 0RF benzonatate 200 mg capsule 200 mg PO BID PRN (Reason: cough) Qty: 20 0RF Referrals Referrals: Connie Bay MD [Primary Care Provider] - : Pneumonia Qualifiers: Pneumonia type: due to unspecified organism Laterality: left Lung location: lower lobe of lung Qualified Code(s): J18.9 - Pneumonia, unspecified organism Cough Qualifiers: Cough type: subacute Qualified Code(s): R05.2 - Subacute cough Elevated WBC count Qualifiers: Leukocytosis type: unspecified Qualified Code(s): D72.829 - Elevated white blood cell count, unspecified
[2022-09-08] MEDS ORDERED: HYDROcodone/HOMATROPINE SYRUP 5MG/1.5MG 5ML UDP PO STA (15:03)
[2022-09-08 15:06] LABS: Hematocrit (blood only) 42.8 % (34.1-44.9); Hemoglobin 14.6 g/dl (12.0-16.0); Mean Corpuscular Hemoglobin 28.6 pg (25.0-34.0); Mean Corpuscular Hgb Conc 34.1 g/dL (32.0-36.0); Mean Corpuscular Volume 83.9 fL (80.0-100.0); Mean Platelet Volume 9.7 fL (9.4-12.3); Platelet Count 386 K/uL (130-400); RDW Coefficient of Variation 14.1 % (11.5-14.5); RDW Standard Deviation 43.2 fL (36.4-46.3); White Blood Count 27.67 K/ul (4.8-10.8)
[2022-09-08 15:14] LABS: Acanthocytes 1+; Basophils # (auto) 0.06 K/uL (0-0.2); Basophils % (auto) 0.2 %; Echinocytes 2+; Eosinophils # (auto) 0.01 K/uL (0-0.50); Immature Granulocytes # (auto) 0.24 K/uL (0.00-0.02); Immature Granulocytes % (auto) 0.9 %; Lymphocytes # (auto) 1.41 K/uL (1.2-3.4); Lymphocytes % (auto) 5.1 %; Monocytes # (auto) 1.56 K/uL (0.24-0.82); Monocytes % (auto) 5.6 %; Neutrophils # (auto) 24.39 K/uL (1.4-6.5); Neutrophils % (auto) 88.2 %; Toxic Vacuolation 1+
[2022-09-08 15:18] LABS: Alanine Aminotransferase 11 U/L (7-52); Albumin Level 3.5 gm/dl (3.4-5.0); Alkaline Phosphatase 101 U/L (34-104); Anion Gap 10 (3-11); Aspartate Aminotransferase 9 U/L (13-39); BUN Creatinine Ratio 24.7 (10-20); Bilirubin Direct 0.1 mg/dl (0-0.2); Bilirubin,Total 0.7 mg/dl (0.2-1.0); Blood Urea Nitrogen 21 mg/dl (6-23); Calcium 9.8 mg/dl (8.5-10.1); Carbon Dioxide 25 mmol/L (21-32); Chloride 100 mmol/L (98-107); Est GFR (African American) 72.9 ml/min; Est GFR (Non-African American) 62.9 ml/min; Glucose 150 mg/dl (70-99(Fasting)); Magnesium 1.8 mg/dl (1.7-2.4); Sodium 135 mmol/L (136-145); Total Protein 7.1 gm/dl (6.0-8.3)
[2022-09-08 15:19] LABS: Troponin I High Sensitivity 9.5 pg/ml (0-14)
[2022-09-08 15:36] LABS: Adenovirus PCR Not Detected (NotDetected); Bordetella parapertussis PCR Not Detected (NotDetected); Bordetella pertussis PCR Not Detected (NotDetected); Chlamydia pneumoniae PCR Not Detected (NotDetected); Coronavirus 229E PCR Not Detected (NotDetected); Coronavirus CoV-2 (COVID19)PCR Not Detected (NotDetected); Coronavirus HKU1 PCR Not Detected (NotDetected); Coronavirus NL63 PCR Not Detected (NotDetected); Coronavirus OC43PCR Not Detected (NotDetected); Human Metapneumovirus PCR Not Detected (NotDetected); Influenza A PCR Not Detected (NotDetected); Influenza B PCR Not Detected (NotDetected); Mycoplasma pneumoniae PCR Not Detected (NotDetected); Parainfluenza Virus 1 PCR Not Detected (NotDetected); Parainfluenza Virus 2 PCR Not Detected (NotDetected); Parainfluenza Virus 3 PCR Not Detected (NotDetected); Parainfluenza Virus 4 PCR Not Detected (NotDetected); Respiratory Syncytial VirusPCR Not Detected (NotDetected); Rhinovirus/Enterovirus PCR Not Detected (NotDetected)
[2022-09-08] MEDS ORDERED: CEFEPIME 2,000 MG/20 ML VIAL IV STA (15:36)
--- NOTE | 2022-09-08 15:38 | XRay Report ---
SINGLE VIEW CHEST CLINICAL HISTORY: Sepsis. FINDINGS: An AP, portable, upright chest radiograph is compared to study dated 08/30/2010. Correlatio n is made with chest CT dated 12/02/2020. The heart is enlarged noting atherosclerotic calcification o f the thoracic aorta. The pulmonary vasculature is none congestive. Chronic interstitial thickening i s similar to previous. There is a left pleural effusion with left basilar consolidation. The right petr ng appears clear noting dependent atelectasis. No pneumothorax is seen. The skeletal structures are o steopenic. The bony thorax is grossly intact. IMPRESSION: 1. Cardiomegaly without radiographic evidence of congestive failure. 2. Left pleural effusion with left basilar consolidation. This could represent atelectasis and/or pne umonia/aspiration pneumonitis. Clinical correlation will be required. Radiographic follow-up to mick khan is recommended. ACT 112: Negative or not required by law. Electronically signed by: Liam Hill M.D. 09/08/2022 3:37 PM
--- NOTE | 2022-09-08 16:20 | History & Physical Report ---
Date of Service September 08, 2022 Assessment & Plan (1) Cough: Plan: -Admit to med tele -At this time the etiology of the patient's persistent cough is unclear at this but includes CAP, atypical pneumonia, bronchitis, heart failure, or possible undiagnosed disease -Patient has completed courses of doxycycline, azithromycin/amoxicillin, 5 day course of 40 mg PO prednisone, and has also been using an albuterol inhaler and Tessalon pearls without relief of her cough -Biofire was negative, will add on urine legionella and will order sputum culture and gram stain -Her previous antibiotic courses would not have covered for pseudomonas, will continue cefepime for now -Stable on RA, will order scheduled duonebs and Robitussin, incentive spirometry, and flutter therapy -Will obtain CT of the chest to monitor for any other possible structural causes of her symptoms -BNP was elevated at 200 and she has small left pleural effusion, will give her 20 mg IV lasix now then continue her home dose tomorrow -Monitor on tele and pulse oximetry -AM CBC and BMP (2) S/P coronary artery stent placement: Plan: -Continue aspirin but is no longer on Plavix Continue home atorvastatin, losartan, Toprol-XL (3) Cardiomyopathy: Plan: Has a history of previous reduced EF which is now recovered. Follows with cardiology, Dr. Sellers -Most recent echocardiogram in 04/2022 with preserved EF -Giving IV Lasix as above -Continue losartan, Toprol-XL -Follow I's and O's, daily weights, low-sodium diet (4) Hypertension: Plan: Blood pressures labile in the ER but mostly elevated -Continue Losartan, Lasix, amlodipine, and metoprolol (5) Hyperlipidemia: Plan: -Continue atorvastatin (6) Gout: Plan: -Continue allopurinol (7) GERD (gastroesophageal reflux disease): Plan: -Continue pantoprazole (8) Blood glucose elevated: Plan: -Patient's BSG noted to be 150 today -Likely secondary to recent steroid use Monitor Plan The patient was discussed with Dr. Valentine at the time of the admission History of Present Illness Chief Complaint: SOB/chest pain Primary Care Provider: Connie Bay MD Shaina is a 82 year old female with a PMH significant for post CAD s/p [place]/diagonal stenting 11/2020, HTN, Hyperlipidemia, GERD, Gout, and depression, who presented to the [facility] ED with a 3 week history of persistent cough. In the ED the patient was found to be afebrile, hemodynamically stable, and stable on RA. Labs were significant for a leukocytosis of 27, left shift of 24, stable renal function and electrolytes, high sensitivity troponin of 9.5, BNP of 204, procal of < 0.05, and negative viral biofire. Chest xray showed "Cardiomegaly without radiographic evidence of congestive failure. Left pleural effusion with left basilar consolidation. This could represent atelectasis and/or pneumonia/aspiration pneumonitis. Clinical correlation will be required. Radiographic follow-up to resolution is recommended.". Prior to admission the patient was given one dose of Cefepime and Hydrocodone for cough. At the time of the exam the patient was resting comfortably in bed in no acute distress. By the time I arrived to see the patient her family had already left as they had been told she was being admitted. History was obtained from the patient but she is unsure of the medications she was given recently. She started developing a non-productive cough approximately 2-3 weeks ago. She first saw her PCP who prescribed medication but it did not help. She was seen at the [facility] ED on 08/30/22 for the same symptoms. Per chart review, she was discharged with amoxicillin, azithromycin, a 5 day course of 40 mg PO prednisone, and Tessalon pearls. She completed this course of antibiotics and steroids but states that she is still having a persistent cough. Per chart review I was able to see that she was initially prescribed a 7 day course of Doxycycline from her PCP on 08/20/22. She denies recent fevers and chills, chest pain, SOB, abdominal pain, dysuria, hematuria, and recent falls. Her persistent cough is what's bothering her the most at the present time. She was prescribed an albuterol inhaler as well, which she states she has been using but without relief of her symptoms. She did have a few episodes of nausea and vomiting two nights ago, she denies choking on any of the vomit. She has been able to eat and drink well, she took all of her am medications today. I spoke to her regarding code status, she would like to be a DNR/DNI. Allergies Allergy/AdvReac Type Severity Reaction Status Date / Time No Known Allergies Allergy Unknown Verified 06/20/22 13:07 Home Medications Medication Instructions Recorded Confirmed Type allopurinol 300 mg tablet 300 mg PO QAM 07/13/19 09/08/22 History multivitamin 1 tab PO QAM 07/13/19 09/08/22 History cholecalciferol (vitamin D3) 25 1,000 unit PO QAM 11/19/19 09/08/22 History mcg (1,000 unit) chewable tablet (Vitamin D3) aspirin 81 mg tablet,delayed 81 mg PO QAM #30 tabs 11/29/20 09/08/22 Rx release nitroglycerin 0.4 mg sublingual 0.4 mg sublingual PRN PRN chest 11/29/2009/08 Rx tablet (Nitrostat) pain #30 tabs losartan 50 mg tablet 50 mg PO DAILY 12/07/20 09/08/22 History metoprolol succinate 100 mg 200 mg PO HS #180 tabs 03/05/21 09/08/22 Rx tablet,extended release 24 hr pantoprazole 40 mg tablet,delayed See Rx Instructions .Route 03/05/21 09/08/22 Rx release .COMPLEX #90 tabs furosemide 20 mg tablet 20 mg PO DAILY PRN edema #90 tabs 04/19/21 09/08/22 Rx atorvastatin 40 mg tablet 40 mg PO QAM #90 tabs 07/15/22 09/08/22 Rx amoxicillin 500 mg capsule 500 mg PO BID #14 caps 08/30/22 09/08/22 Rx benzonatate 200 mg capsule 200 mg PO BID PRN cough #20 caps 08/30/22 09/08/22 Rx amlodipine 5 mg tablet 5 mg PO QAM 09/08/22 09/08/22 History Past Med/Surg History Medical History CAD (coronary artery disease) Cardiomyopathy Chest pain Depression GERD (gastroesophageal reflux disease) controlled Gout Hyperlipidemia Hypertension Hypoxia Osteoarthritis 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 ST elevation myocardial infarction (STEMI) November 2020 s/p MEGGAN to D2 and mid-LAD Surgical History History of appendectomy History of cataract surgery R/L History of cholecystectomy History of colonoscopy History of hysterectomy TOTAL History of intestinal surgery History of repair of rotator cuff RIGHT History of right hip replacement Right CHRISTINE: 07/22/19: SAB x 1 at L3-L4 at [facility] History of total knee replacement LEFT S/P coronary artery stent placement Family History Brother Family hx of colon cancer Sister Myocardial infarction Social History Smoking Status: Never smoker Second Hand Exposure: No; Do You Dip or Chew Tobacco: No; Tobacco Cessation Education Requested by Patient: No Hx Alcohol Use: Yes Hx Substance Use: No Preferred Language: Frisian Communication Ability: Effective Legal Biller Required: No Beliefs That Will Affect Care: None marital status: / Current Living Situation: Family Current Living Situation Comment: Lives w/ son, Pedro Borja current occupation: RETIRED Other Information That Helps Us Care for You: No Feels Safe at Home: Yes Safety Concerns: Feels Safe At This Time Assistive Devices: Denture - Upper and Denture - Lower Review of Systems Review of Systems: Denies current fever, chills, headache, changes in vision, hearing, taste, and smell, chest pain, SOB, abdominal pain, nausea, vomiting, diarrhea, hematemesis, melena, dysuria, hematuria, and recent falls. All systems have been reviewed and are otherwise negative. Physical Exam Physical Exam: Physical Exam: General: In no acute distress, stated age, well-nourished, good hygiene HEENT: Normocephalic, atraumatic, no scleral icterus, pupils around round, symmetrical, and reactive to light, moist mucus membranes, trachea midline, no thyromegaly Chest/Pulm: No respiratory distress, symmetrical chest expansion, right lung is CTA, decreased breath sounds in the LLL Cardiac: RRR, no murmurs noted Abdomen: Negative for ascites and bruising, normoactive bowel sounds, soft, non-tender to palpation throughout Musculoskeletal: Symmetrical and without signs of acute trauma, upper and lower extremities with full ROM, no atrophy, spasticity, or flaccidity Extremities: Radial, dorsalis pedis, and posterior tibial pulses are intact and symmetrical, no edema noted in the BL LE's Skin: Warm, dry, no rashes , lesions, or scars noted Neuro: Alert and oriented to person, place, month, year, and president, no focal defects, CN II-XII tested and intact, no tremors noted Psych: No acute distress, calm and cooperative during the exam Results & Data Results & Data ([facility]) Vital Signs (Past 12 Hours) Vital Signs Temp Pulse Pulse Resp BP BP Pulse Ox 09/08/22 14:42 100 H 22 96 09/08/22 13:03 108 H 22 192/111 H 96 09/08/22 12:35 36.2 C L 112 H 24 158/84 H 93 O2 Del Method 09/08/22 14:42 Room Air 09/08/22 13:03 Room Air 09/08/22 12:35 Room Air Laboratory Results Abnormal lab results 09/08/22 09/08/22 09/08/22 Range/Units 14:38 14:38 14:38 WBC 27.67 H (4.8-10.8) K/ul Neut # (Auto) 24.39 H (1.4-6.5) K/uL Sanders # (Auto) 1.56 H (0.24-0.82) K/uL Immature Gran # (Auto) 0.24 H (0.00-0.02) K/uL Sodium 135 L (136-145) mmol/L BUN/Creatinine Ratio 24.7 H (10-20) Glucose 150 H (70-99(Fasting)) mg/dl AST 9 L (13-39) U/L B-Natriuretic Peptide 204 H (0-100) pg/ml Diagnostic Findings Chest X-Ray 09/08/22 14:01 SINGLE VIEW CHEST CLINICAL HISTORY: Sepsis. FINDINGS: An AP, portable, upright chest radiograph is compared to study dated 08/30/2010. Correlation is made with chest CT dated 12/02/2020. The heart is enlarged noting atherosclerotic calcification of the thoracic aorta. The pulmonary vasculature is none congestive. Chronic interstitial thickening is similar to previous. There is a left pleural effusion with left basilar consolidation. The right lung appears clear noting dependent atelectasis. No pneumothorax is seen. The skeletal structures are osteopenic. The bony thorax is grossly intact. IMPRESSION: 1. Cardiomegaly without radiographic evidence of congestive failure. 2. Left pleural effusion with left basilar consolidation. This could represent atelectasis and/or pneumonia/aspiration pneumonitis. Clinical correlation will be required. Radiographic follow-up to resolution is recommended. ACT 112: Negative or not required by law. Electronically signed by: Liam Hill M.D. 09/08/2022 3:37 PM ECG Additional Comments: Poor data quality, interpretation may be adversely affected Sinus tachycardia Nonspecific ST and T wave abnormality Abnormal ECG When compared with ECG of 02-DEC-2020 20:23, TN interval has decreased T wave inversion no longer evident in Anterior leads Code Status & VTE Plan Code Status DNR/DNI VTE Prophylaxis Plan VTE Prophylaxis will be ordered: Yes Supervising Physician Co-Signing Physician Notes PA Supervision Note: I personally saw and examined the patient. I verified all farnsworth points and agree with DANGELO Vallecillo with the following exceptions and/or additions: S-this patient is an 82-year-old female with a history of HFrEF which is now improved, CAD status post MEGGAN, HTN, gout, GERD, who presents to the ER with persistent cough x2 to 3 weeks despite being treated with 3 different outpatient antibiotics, course of prednisone, and albuterol inhaler. She does have evidence of possible left lower lobe pneumonia versus atelectasis and a small pleural effusion as well as cardiomegaly on chest x-ray. She does not have fever but is tachycardic in the ER and with significant leukocytosis above what is expected for finishing a course of prednisone 4 days ago. She denies any chest pains or shortness of breath, no abdominal pains. Did have 1 loose stool yesterday. The rest of the history and ROS is reviewed as above O- Vitals reviewed Gen: AAOx3, NAD HEENT: Anicteric sclerae, EOMI CV: RRR no mgr nl S1S2 Pulm: Diminished breath sounds at the bases bilaterally, no wheezes crackles or rales Abd: +BS soft NT ND no masses or hernias Ext: No edema, 2+ DP pulses Skin: No rashes, warm/dry Neuro: Full strength throughout Labs, Rads, and ECG reviewed Chest CT images personally reviewed by me after admission and do show atelectasis with left-sided small pleural effusion as well as pericardial effusion. A/L-26-kawm-old female here with persistent cough and possible left lower lobe pneumonia with pleural effusion and now with pericardial effusion No ECG changes consistent with tamponade. Her vital signs have since normalized and do not seem consistent with tamponade. She does not have chest pain consistent with pericarditis. She obviously has had a recent infection which may very well have been viral given that she has not responded at all to antibiotics. Her [employer] viral respiratory panel is now negative but perhaps she had some sort of viral illness in the last few weeks leading to pericarditis. -Continue empiric IV cefepime for now as above -Checking Legionella antigen, sputum culture, follow blood cultures -Diurese with IV Lasix this evening and again in the morning Follow CBC, CMP -For pericardial effusion, check an ESR, echocardiogram, and consult cardiology for further evaluation PG Care Time/CCT Total # of Minutes Spent Total Time Spent with Patient: Total time spent is greater than 50% in coordination of care (as documented) at patient's floor/unit and/or counseling patient: C[place] [address] Initial Inpt Care Lvl 3 Patient Type Established Medical Decision Making High Complexity Diagnoses Cough R05.9 S/P coronary artery stent placement Z95.5 Cardiomyopathy I42.9 Hypertension I10 Hypertension type: essential hypertension Hyperlipidemia E78.5 Hyperlipidemia type: unspecified Gout M10.9 Chronicity: unspecified Gout etiology: unspecified cause Gout site: unspecified site GERD (gastroesophageal reflux disease) K21.9 Esophagitis presence: esophagitis presence not specified Blood glucose elevated R73.9 (1) Gout Chronicity: unspecified Gout etiology: unspecified cause Gout site: unspecified site Qualified Code(s): M10.9 - Gout, unspecified (2) Hyperlipidemia Hyperlipidemia type: unspecified Qualified Code(s): E78.5 - Hyperlipidemia, unspecified (3) GERD (gastroesophageal reflux disease) Esophagitis presence: esophagitis presence not specified Qualified Code(s): K21.9 - Gastro-esophageal reflux disease without esophagitis (4) Hypertension Hypertension type: essential hypertension Qualified Code(s): I10 - Essential (primary) hypertension
[2022-09-08] MEDS ORDERED: FUROSEMIDE INJ 20 MG/2 ML VIAL IV ONE ×2 (17:14→17:15)
[2022-09-08] MEDS ORDERED: guaiFENesin SUGAR FREE 200 MG/10 ML UDC PO ONE (18:30)
[2022-09-08] MEDS ORDERED: ACETAMINOPHEN 325 MG TAB PO PRN (19:58)
[2022-09-08] MEDS: guaiFENesin SUGAR FREE 200 MG/10 ML UDC PO SCH (20:01)
--- NOTE | 2022-09-08 20:13 | CT Scan Report ---
CT SCAN OF THE CHEST WITHOUT IV CONTRAST CLINICAL HISTORY: Cough. COMPARISON STUDY: Chest x-ray dated 09/08/2022. The chest CT dated 12/02/2020. TECHNIQUE: CT scan of the thorax was performed from the thoracic inlet to the upper abdomen. Images are reviewed in the axial, sagittal, and coronal planes. IV contrast was not administered for this ex amination as per the referring clinician. A dose lowering technique was utilized adhering to the jay sal of AJITH. CT DOSE: 375.35 mGy.cm FINDINGS: Thyroid: Normal in size and heterogeneous in attenuation. Thoracic aorta: There is moderate atherosclerotic calcification of the thoracic aorta, which is brittany l in caliber and demonstrates standard 3-vessel arch anatomy. Heart: The heart is mildly enlarged. There is a moderate complex pericardial effusion with surroundin g inflammation. The coronary arteries are densely calcified. Lungs and pleural spaces: Evaluation of the lung parenchyma is compromised by motion artifact. There are small left and trace right pleural effusions with dependent consolidation. The trachea and centr al airways appear clear. Mediastinum: Mildly enlarged mediastinal lymph nodes measure up to 11 mm in short axis. Lizzy: Not well assessed without IV contrast. Axillae: There is no axillary lymphadenopathy. Upper abdomen: Partially visualized upper abdominal viscera is within normal limits. Skeletal structures: The skeletal structures are heterogeneously osteopenic. No lytic or blastic bony lesions are seen. Spondylotic change is seen throughout the thoracic spine and there is arthritic ch shante in the shoulders. IMPRESSION: 1. There is a moderate complex pericardial effusion with surrounding inflammation. This represents a significant change from 12/02/2020 and the appearance favors pericarditis. Cardiology evaluation is ad vised. 2. Small left and trace right pleural effusions with dependent consolidation. This likely represents atelectasis. Correlate clinically. 3. Mildly enlarged mediastinal lymph nodes are likely reactive. 4. Additional findings as above. ACT 112: Negative or not required by law. Electronically signed by: Liam Hill M.D. 09/08/2022 8:11 PM
[2022-09-08] MEDS ORDERED: Patient's HEIGHT &/or WEIGHT Needed SCH (20:15)
[2022-09-08] MEDS: ALBUT/IPRATROP 3MG/0.5MG NEB 3 ML VIAL NEB SCH ×2 (20:41→23:55)
[2022-09-08] MEDS ORDERED: HYDROcodone/HOMATROPINE SYRUP 5MG/1.5MG 5ML UDP PO PRN (21:00)
[2022-09-08] MEDS: METOPROLOL SUCC 50MG EXT REL TAB PO SCH (21:01)
[2022-09-08] MEDS: BENZONATATE 100 MG CAPSULE PO PRN (21:01)
[2022-09-09] MEDS: guaiFENesin SUGAR FREE 200 MG/10 ML UDC PO SCH ×4 (02:21→20:01)
[2022-09-09] MEDS: CEFEPIME 2,000 MG in SYRINGE 0 ML IV SCH ×2 (03:02→17:37)
[2022-09-09] MEDS: ALBUT/IPRATROP 3MG/0.5MG NEB 3 ML VIAL NEB SCH ×3 (03:21→10:44)
[2022-09-09 06:45] LABS: Hematocrit (blood only) 39.8 % (34.1-44.9); Hemoglobin 13.1 g/dl (12.0-16.0); Mean Corpuscular Hemoglobin 27.9 pg (25.0-34.0); Mean Corpuscular Hgb Conc 32.9 g/dL (32.0-36.0); Mean Corpuscular Volume 84.9 fL (80.0-100.0); Mean Platelet Volume 9.4 fL (9.4-12.3); Platelet Count 355 K/uL (130-400); RDW Coefficient of Variation 14.2 % (11.5-14.5); RDW Standard Deviation 43.8 fL (36.4-46.3); Red Blood Count 4.69 M/uL (3.93-5.22); White Blood Count 20.47 K/ul (4.8-10.8)
[2022-09-09 07:07] LABS: BUN Creatinine Ratio 28.1 (10-20); Calcium 9.2 mg/dl (8.5-10.1); Est GFR (Non-African American) 59.5 ml/min
[2022-09-09 07:35] LABS: Estimated Average Glucose 177 mg/dl; Hemoglobin A1C 7.8 % (4.5-5.6)
[2022-09-09] MEDS: allopurinoL 300 MG TAB PO SCH (08:35)
[2022-09-09] MEDS: CHOLECALCIFEROL 1,000 UNITS 25 MCG TAB PO SCH (08:35)
[2022-09-09] MEDS: ATORVASTATIN 40 MG TAB PO SCH (08:36)
[2022-09-09] MEDS: amLODIPine BESYLATE 5 MG TAB PO SCH (08:36)
[2022-09-09] MEDS: ASPIRIN 81 MG ECTAB PO SCH (08:36)
[2022-09-09] MEDS: FUROSEMIDE INJ 20 MG/2 ML VIAL IV SCH (08:37)
[2022-09-09] MEDS ORDERED: FUROSEMIDE 20 MG TAB PO SCH (09:00)
[2022-09-09] MEDS ORDERED: PANTOprazole 40 MG TAB PO SCH (09:00)
[2022-09-09] MEDS ORDERED: LOSARTAN POTASSIUM 50 MG TAB PO SCH (09:00)
[2022-09-09] MEDS ORDERED: ALBUT/IPRATROP 3MG/0.5MG NEB 3 ML VIAL NEB PRN (10:47)
--- NOTE | 2022-09-09 10:48 | XCELERA ---
[id number] \\[id number]
--- NOTE | 2022-09-09 13:30 | Cardiology Consultation ---
Date of Consultation September 09, 2022 Assessment & Plan (1) Cough: 2. Pericardial effusion 3. CAD-post PCI to LAD, D2. Residual moderate left main disease 3. Recovered cardiomyopathy/HFpEFquestion prior stress-induced cardiomyopathy 4. Elevated ESR Reviewed patient's repeat echocardiogram. LV function unchanged. Does now have a small circumferential pericardial fusion that was not present on echo 4 months ago. No echocardiographic or clinical signs of tamponade. No role for pericardiocentesis at this time. Recommend close surveillance. Pericardial effusion secondary to unspecified viral illness seems like most likely diagnosis. Bleeding on aspirin also possible. ESR significantly el evated, no history of rheumatologic disease. Check TSH at some point. Recommendations: Start colchicine 0.6 mg twice daily Agree with IV diuresis today for question of mild volume overload contributing to cough, likely transition back to p.o. tomorrow Continue current aspirin, statin. Can continue home antihypertensives On discharge will need repeat echocardiogram in 1 to 2 weeks to assess pericardial effusion. Will follow History of Present Illness Attending Physician: Ivan Nuñez MD History of Present Illness Mrs. Borja is a very pleasant 81-year-old woman with a history of coronary disease post [place]/diagonal stenting 11/2020, potentially stress-induced cardiomyopathy now with recovered LV function and prior systolic heart failure who presented to ED with persistent cough. Cardiology consulted due to pericardial fusion noted on CT scan. Patient known to me from outpatient setting of prior hospitalizations, last seen 04/2022. Repeat echo at that time showed LVEF 65%, grade 1 diastolic dysfunction and trace MR. Patient reports 3-week history of persistent cough. Has been treated with doxycycline, amoxicillin/azithromycin and prednisone without improvement. With with coughing has developed chest discomfort and had a few visits of nausea. Denies any fevers or chills. Denies any sick contacts. No other URI symptoms. On presentation afebrile, hemodynamically stable, oxygenating well on room air. Significant leukocytosis. HS TropI negative. BNP mildly elevated to 4. Low procalcitonin. ECG showing sinus rhythm without ST changes. CT scan read as "moderate complex pericardial fusion with surrounding inflammation." Also with small left and trace right pleural effusions and dependent consolidation. Started on cefepime for possible left lower lobe pneumonia and has received IV Lasix x2. Repeat echocardiogram today showed small circumferential pericardial effusion without echocardiographic signs of tamponade. Allergies Allergy/AdvReac Type Severity Reaction Status Date / Time No Known Allergies Allergy Unknown Verified 06/20/22 13:07 Home Medications Medication Instructions Recorded Confirmed Type allopurinol 300 mg tablet 300 mg PO QAM 07/13/19 09/08/22 History multivitamin 1 tab PO QAM 07/13/19 09/08/22 History cholecalciferol (vitamin D3) 25 1,000 unit PO QAM 11/19/19 09/08/22 History mcg (1,000 unit) chewable tablet (Vitamin D3) aspirin 81 mg tablet,delayed 81 mg PO QAM #30 tabs 11/29/20 09/08/22 Rx release nitroglycerin 0.4 mg sublingual 0.4 mg sublingual PRN PRN chest 11/29/20 09/08/22 Rx tablet (Nitrostat) pain #30 tabs losartan 50 mg tablet 50 mg PO DAILY 12/07/20 09/08/22 History metoprolol succinate 100 mg 200 mg PO HS #180 tabs 03/05/21 09/08/22 Rx tablet,extended release 24 hr pantoprazole 40 mg tablet,delayed See Rx Instructions .Route 03/05/21 09/08/22 Rx release .COMPLEX #90 tabs furosemide 20 mg tablet 20 mg PO DAILY PRN edema #90 tabs 04/19/21 09/08/22 Rx atorvastatin 40 mg tablet 40 mg PO QAM #90 tabs 07/15/22 09/08/22 Rx amoxicillin 500 mg capsule 500 mg PO BID #14 caps 08/30/22 09/08/22 Rx benzonatate 200 mg capsule 200 mg PO BID PRN cough #20 caps 08/30/22 09/08/22 Rx amlodipine 5 mg tablet 5 mg PO QAM 09/08/22 09/08/22 History Patient History Medical History CAD (coronary artery disease) Cardiomyopathy Chest pain Depression GERD (gastroesophageal reflux disease) controlled Gout Hyperlipidemia Hypertension Hypoxia Osteoarthritis 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 ST elevation myocardial infarction (STEMI) November 2020 s/p MEGGAN to D2 and mid-LAD Surgical History History of appendectomy History of cataract surgery R/L History of cholecystectomy History of colonoscopy History of hysterectomy TOTAL History of intestinal surgery History of repair of rotator cuff RIGHT History of right hip replacement Right CHRISTINE: 07/22/19: SAB x 1 at L3-L4 at [facility] History of total knee replacement LEFT S/P coronary artery stent placement Family History Brother Family hx of colon cancer Sister Myocardial infarction Social History Smoking Status: Never smoker Second Hand Exposure: No; Do You Dip or Chew Tobacco: No; Tobacco Cessation Education Requested by Patient: No Hx Alcohol Use: Yes Hx Substance Use: No Preferred Language: Lao Communication Ability: Effective Manager Voice Required: No Beliefs That Will Affect Care: None marital status: / Current Living Situation: Family Current Living Situation Comment: Lives w/ son, Pedro Borja current occupation: RETIRED Other Information That Helps Us Care for You: No Feels Safe at Home: Yes Safety Concerns: Feels Safe At This Time Assistive Devices: Denture - Upper and Denture - Lower Review of Systems Review of Systems: All systems reviewed & are unremarkable except as noted in HPI & below Physical Exam Physical Exam: General: Uncomfortable, frequently coughing HEENT: Sclerae anicteric Lungs: Clear to auscultation bilaterally, diminished response at bases Cardiac: Regular rate and rhythm, no murmurs. JVP approximately 7-8 Vascular: 2+ radial, DP pulses. Abdomen: Soft, nontender Extremities: Well perfused, no peripheral edema Neuro: Nonfocal Psych: Alert orient x3, normal affect and mood Results & Data ([facility]) Vital Signs (Past 12 Hours) Vital Signs Temp Pulse Pulse Resp BP Pulse Ox O2 Del Method 09/09/22 08:20 Room Air 09/09/22 11:15 98.4 F 90 18 118/78 91 Room Air 09/09/22 10:45 87 18 90 Room Air 09/09/22 07:20 82 18 93 Room Air 09/09/22 07:16 55 L 09/09/22 06:44 98.1 F 78 18 136/81 93 Room Air 09/09/22 04:41 97.5 F L 87 20 143/64 H 94 Room Air PG Care Time/CCT Total # of Minutes Spent Total Time Spent with Patient: Total time spent is greater than 50% in coordination of care (as documented) at patient's floor/unit and/or counseling patient: Coding Level of Care Code 85031 Inpt Consult Level 4 Diagnoses Cough R05.9
--- NOTE | 2022-09-09 16:00 | Hospitalist Progress Note ---
Date of Service September 09, 2022 Assessment & Plan (1) Cough: Plan: Ddx includes CAP, atypical pneumonia, bronchitis, heart failure, or possible undiagnosed disease. - Patient has completed courses of doxycycline, azithromycin/amoxicillin, 5 day course of 40 mg PO prednisone and has also been using an albuterol inhaler and Tessalon pearls without relief of her cough. - Biofire was negative, will add on urine legionella and will order sputum culture and gram stain. => ddx to me also includes losartan (3%), GERD, post-nasal drip as all possible chronic coughs. (2) S/P coronary artery stent placement: Plan: - Continue aspirin but is no longer on Plavix - Continue home atorvastatin, losartan, Toprol-XL (3) Cardiomyopathy: Plan: Has a history of previous reduced EF which is now recovered. Follows with cardiology, Dr. Sellers. - Most recent echocardiogram in 04/2022 with preserved EF - Giving IV Lasix as above - Continue Toprol-XL - Follow I's and O's, daily weights, low-sodium diet (4) Hypertension: Plan: Blood pressures labile in the ER but mostly elevated. Presently 140/80. - Continue Lasix, amlodipine, and metoprolol (5) Hyperlipidemia: Plan: - Continue atorvastatin (6) Gout: Plan: - Continue allopurinol (7) GERD (gastroesophageal reflux disease): Plan: - Continue pantoprazole (will change to before breakfast) (8) Blood glucose elevated: Plan: -Patient's BSG noted to be 150 today -Likely secondary to recent steroid use Monitor Admission and Anticipated Discharge Date Admission Date: September 08, 2022 Subjective Doing well today. Still with the chronic, small cough. No production. No shortness of breath per patient. Physical Exam Constitutional: WD/WN, vitals as above Eyes: EOM intact bilaterally; no conjunctival abnormality ENMT: external ear and nose normal, oropharynx normal Neck: trachea midline, no thyromegaly normal visual inspection Respiratory: normal respiratory effort, lungs clear to auscultation + cough (Frequent, "throat clearing" type cough); no respiratory distress Cardiovascular: RRR, no murmur, no edema Gastrointestinal (Abdomen): Inspection/Auscultation: abdomen normal to inspection; abdomen not distended Musculoskeletal: no cyanosis or clubbing, extremities motor strength 5/5 Skin: no rashes, warm and dry Neurologic: moves all extremities and awake Psychiatric: Orientation: alert, oriented to person and cooperative Results & Data Results & Data ([facility]) Vital Signs (Past 12 Hours) Vital Signs Temp Pulse Pulse Resp BP Pulse Ox O2 Del Method 09/09/22 15:24 36.5 C 94 H 22 138/79 92 Room Air 09/09/22 08:20 Room Air 09/09/22 11:15 36.9 C 90 18 118/78 91 Room Air 09/09/22 10:45 87 18 90 Room Air 09/09/22 07:20 82 18 93 Room Air 09/09/22 07:16 55 L 09/09/22 06:44 36.7 C 78 18 136/81 93 Room Air 09/09/22 04:41 36.4 C L 87 20 143/64 H 94 Room Air PG Care Time/CCT Total # of Minutes Spent Total Time Spent with Patient: Total time spent is greater than 50% in coordination of care (as documented) at patient's floor/unit and/or counseling patient: Coding Level of Care Code 10184 Subseq Hosp Care Lvl 2 Diagnoses Cough R05.9 S/P coronary artery stent placement Z95.5 Cardiomyopathy I42.9 Hypertension I10 Hypertension type: essential hypertension Hyperlipidemia E78.5 Hyperlipidemia type: unspecified Gout M10.9 Gout site: unspecified site Gout etiology: unspecified cause Chronicity: unspecified GERD (gastroesophageal reflux disease) K21.9 Esophagitis presence: esophagitis presence not specified Blood glucose elevated R73.9 (1) Hypertension Hypertension type: essential hypertension Qualified Code(s): I10 - Essential (primary) hypertension (2) Hyperlipidemia Hyperlipidemia type: unspecified Qualified Code(s): E78.5 - Hyperlipidemia, unspecified (3) Gout Gout site: unspecified site Gout etiology: unspecified cause Chronicity: unspecified Qualified Code(s): M10.9 - Gout, unspecified (4) GERD (gastroesophageal reflux disease) Esophagitis presence: esophagitis presence not specified Qualified Code(s): K21.9 - Gastro-esophageal reflux disease without esophagitis
[2022-09-09] MEDS: PANTOprazole 40 MG TAB PO SCH (17:37)
[2022-09-09] MEDS: BENZONATATE 100 MG CAPSULE PO PRN (17:38)
[2022-09-09] MEDS: COLCHICINE 0.6 MG TAB PO SCH (20:01)
[2022-09-09] MEDS: METOPROLOL SUCC 50MG EXT REL TAB PO SCH (20:01)
[2022-09-09] MEDS: FLUTICASONE PROPIONATE NA SPR 16 GM BTL SCH (20:01)
[2022-09-09] MEDS ORDERED: METOPROLOL TARTRATE 1 MG/ML VIAL IV STA (21:46)
[2022-09-09] MEDS: MELATONIN 3 MG TAB PO PRN (22:15)
--- NOTE | 2022-09-09 22:34 | Electrocardiogram Report ---
Test Reason : Blood Pressure : / mmHG Vent. Rate : 107 BPM Atrial Rate : 107 BPM P-R Int : 160 ms QRS Dur : 076 ms QT Int : 300 ms P-R-T Axes : 030 -10 -17 degrees QTc Int : 400 ms Poor data quality, interpretation may be adversely affected Sinus tachycardia Nonspecific ST and T wave abnormality Abnormal ECG When compared with ECG of 02-DEC-2020 20:23, ME interval has decreased T wave inversion no longer evident in Anterior leads Confirmed by Abhijit Peralta ([id number]) on 09/09/2022 10:34:13 PM Referred By: REFERRED SELF Confirmed By:Abhijit Peralta
[2022-09-09 22:40] LABS: BUN Creatinine Ratio 23.6 (10-20); Calcium 9.7 mg/dl (8.5-10.1); Est GFR (African American) 44.9 ml/min; Est GFR (Non-African American) 38.7 ml/min; Magnesium 1.8 mg/dl (1.7-2.4); Potassium 3.9 mmol/L (3.5-5.1)
[2022-09-10] MEDS ORDERED: METOPROLOL TARTRATE 1 MG/ML VIAL IV STA ×2 (00:20→02:09)
[2022-09-10] MEDS ORDERED: MAGNESIUM SULFATE / D5W 1 GM/100 ML BAG IV ONE (00:20)
[2022-09-10] MEDS ORDERED: POTASSIUM CHLORIDE / WTR 10 MEQ/100 ML PLCT IV ONE (00:20)
[2022-09-10] MEDS: guaiFENesin SUGAR FREE 200 MG/10 ML UDC PO SCH ×4 (01:01→19:43)
[2022-09-10] MEDS: CEFEPIME 2,000 MG in SYRINGE 0 ML IV SCH (03:03)
[2022-09-10 07:54] LABS: Hematocrit (blood only) 37.5 % (34.1-44.9); Hemoglobin 12.5 g/dl (12.0-16.0); Mean Corpuscular Hemoglobin 27.7 pg (25.0-34.0); Mean Corpuscular Hgb Conc 33.3 g/dL (32.0-36.0); Mean Platelet Volume 9.4 fL (9.4-12.3); Platelet Count 362 K/uL (130-400); RDW Coefficient of Variation 14.1 % (11.5-14.5); RDW Standard Deviation 42.9 fL (36.4-46.3); Red Blood Count 4.52 M/uL (3.93-5.22); White Blood Count 20.61 K/ul (4.8-10.8)
[2022-09-10] MEDS: ASPIRIN 81 MG ECTAB PO SCH (08:25)
[2022-09-10] MEDS: COLCHICINE 0.6 MG TAB PO SCH ×2 (08:25→20:08)
[2022-09-10] MEDS: CHOLECALCIFEROL 1,000 UNITS 25 MCG TAB PO SCH (08:25)
[2022-09-10] MEDS: ATORVASTATIN 40 MG TAB PO SCH (08:25)
[2022-09-10] MEDS: FUROSEMIDE INJ 20 MG/2 ML VIAL IV SCH (08:25)
[2022-09-10] MEDS: amLODIPine BESYLATE 5 MG TAB PO SCH (08:25)
[2022-09-10] MEDS: allopurinoL 300 MG TAB PO SCH (08:26)
[2022-09-10 08:29] LABS: BUN Creatinine Ratio 29.3 (10-20); Calcium 9.3 mg/dl (8.5-10.1); Creatinine Clr Calc Pharmacy 42.1 ml/min; Est GFR (African American) 60.6 ml/min; Est GFR (Non-African American) 52.3 ml/min
--- NOTE | 2022-09-10 12:41 | Hospitalist Progress Note ---
Date of Service September 10, 2022 Assessment & Plan (1) Paroxysmal atrial fibrillation: Plan: Started going into atrial fibrillation around midnight on 11/09, then stayed in it until about 7am. Discussed with cardiology, will increase Toprol. Hold off on anticoagulation for now given new pericardial effusion. - Monitor (2) Cough: Plan: Ddx includes CAP, atypical pneumonia, bronchitis, heart failure, or possible undiagnosed disease. - Patient has completed courses of doxycycline, azithromycin/amoxicillin, 5 day course of 40 mg PO prednisone and has also been using an albuterol inhaler and Tessalon pearls without relief of her cough. - Biofire was negative, will add on urine legionella and will order sputum culture and gram stain. => Ddx to me also includes losartan (3%), GERD, post-nasal drip as all possible chronic coughs. Improved today, so possibly one of those three. (3) S/P coronary artery stent placement: Plan: - Continue aspirin but is no longer on Plavix - Continue home atorvastatin, losartan, Toprol-XL (4) Cardiomyopathy: Plan: Has a history of previous reduced EF which is now recovered. Follows with cardiology, Dr. Sellers. - Most recent echocardiogram in 04/2022 with preserved EF - Giving IV Lasix as above - Continue Toprol-XL - Follow I's and O's, daily weights, low-sodium diet (5) Hypertension: Plan: Blood pressures labile in the ER but mostly elevated. Presently 140/80. - Continue Lasix, amlodipine, and metoprolol (6) Hyperlipidemia: Plan: - Continue atorvastatin (7) Gout: Plan: - Continue allopurinol (8) GERD (gastroesophageal reflux disease): Plan: - Continue pantoprazole (will change to before breakfast) (9) Blood glucose elevated: Plan: -Patient's BSG noted to be 150 today -Likely secondary to recent steroid use Monitor Admission and Anticipated Discharge Date Admission Date: September 08, 2022 Subjective Cough is improving somewhat today. No major issues otherwise. Reports no fevers/chills, chest pain, shortness of breath, abdominal pain, nausea, or vomiting. Physical Exam Constitutional: WD/WN, vitals as above Eyes: EOM intact bilaterally; no conjunctival abnormality ENMT: external ear and nose normal, oropharynx normal Neck: trachea midline, no thyromegaly normal visual inspection Respiratory: normal respiratory effort, lungs clear to auscultation + cough (Frequent, "throat clearing" type cough); no respiratory distress Cardiovascular: RRR, no murmur, no edema Gastrointestinal (Abdomen): Inspection/Auscultation: abdomen normal to inspection; abdomen not distended Musculoskeletal: no cyanosis or clubbing, extremities motor strength 5/5 Skin: no rashes, warm and dry Neurologic: moves all extremities and awake Psychiatric: Orientation: alert, oriented to person and cooperative Results & Data Results & Data ([facility]) Vital Signs (Past 12 Hours) Vital Signs Temp Pulse Pulse Resp BP BP Pulse Ox 09/10/22 11:31 36.8 C 86 20 142/75 H 91 09/10/22 08:00 09/10/22 07:41 36.8 C 107 H 20 138/91 95 09/10/22 04:48 36.6 C 99 H 20 97/55 L 93 09/10/22 03:17 09/10/22 02:28 113 H 110/65 09/10/22 02:29 113 H 110/65 09/10/22 02:05 124 H 18 100/61 93 09/10/22 00:59 109/61 09/10/22 00:44 121 H 122/80 O2 Del Method O2 Flow Rate 09/10/22 11:31 Room Air 09/10/22 08:00 Room Air 09/10/22 07:41 Room Air 09/10/22 04:48 Nasal Cannula 2 09/10/22 03:17 Nasal Cannula 2 09/10/22 02:28 09/10/22 02:29 09/10/22 02:05 Nasal Cannula 2 09/10/22 00:59 09/10/22 00:44 PG Care Time/CCT Total # of Minutes Spent Total Time Spent with Patient: Total time spent is greater than 50% in coordination of care (as documented) at patient's floor/unit and/or counseling patient: Coding Level of Care Code 84895 Subseq Hosp Care Lvl 2 Diagnoses Paroxysmal atrial fibrillation I48.0 Cough R05.9 S/P coronary artery stent placement Z95.5 Cardiomyopathy I42.9 Hypertension I10 Hypertension type: essential hypertension Hyperlipidemia E78.5 Hyperlipidemia type: unspecified Gout M10.9 Gout site: unspecified site Gout etiology: unspecified cause Chronicity: unspecified GERD (gastroesophageal reflux disease) K21.9 Esophagitis presence: esophagitis presence not specified Blood glucose elevated R73.9 (1) Hypertension Hypertension type: essential hypertension Qualified Code(s): I10 - Essential (primary) hypertension (2) Hyperlipidemia Hyperlipidemia type: unspecified Qualified Code(s): E78.5 - Hyperlipidemia, unspecified (3) Gout Gout site: unspecified site Gout etiology: unspecified cause Chronicity: unspecified Qualified Code(s): M10.9 - Gout, unspecified (4) GERD (gastroesophageal reflux disease) Esophagitis presence: esophagitis presence not specified Qualified Code(s): K21.9 - Gastro-esophageal reflux disease without esophagitis
--- NOTE | 2022-09-10 13:28 | Cardiology Progress Note ---
Date of Service September 10, 2022 Assessment & Plan (1) Cough: Plan: 2. Pericardial effusion 3. CAD-post PCI to LAD, D2. Residual moderate left main disease 3. Recovered cardiomyopathy/HFpEFquestion prior stress-induced cardiomyopathy 4. Elevated ESR 5. Atrial fibrillation with RVR Patient with several hours of asymptomatic atrial fibrillation with RVR overnight. Converted back to sinus rhythm this morning. Suspect AF in part secondary to acute illness, pericardial disease. With pericardial effusion would like to avoid anticoagulation if able. For now recommend increasing Toprol XL to 300 mg daily (100 in the a.m., 200 nightly). Continue to monitor on telemetry today and overnight. Will repeat limited echo in a.m. If echo, telemetry stable likely discharge tomorrow with event monitor. Otherwise continue current Aspirin, statin, colchicine. Can stop IV furosemide. Will follow Admission and Anticipated Discharge Date Admission Date: September 08, 2022 Subjective Cough improved today. Reports constant chest discomfort at the lower border of her ribs, somewhat worse with coughing and palpation. Denies significant shortness of breath. Overnight had several hours of atrial fibrillation with RVR with rates as high as 150s. With A. fib was asymptomatic. Review of Systems Review of Systems: Unobtainable due to cognitive status Physical Exam Physical Exam: General: Comfortable HEENT: Sclerae anicteric Lungs: Clear to auscultation bilaterally, diminished response at bases Cardiac: Regular rate and rhythm, no murmurs. JVP 6-7 Vascular: 2+ radial, DP pulses. Abdomen: Soft, nontender Extremities: Well perfused, no peripheral edema Neuro: Nonfocal Psych: Alert orient x3, normal affect and mood Results & Data ([facility]) Vital Signs (Past 12 Hours) Vital Signs Temp Pulse Pulse Resp BP BP Pulse Ox 09/10/22 11:31 98.2 F 86 20 142/75 H 91 09/10/22 08:00 09/10/22 07:41 98.2 F 107 H 20 138/91 95 09/10/22 04:48 97.9 F 99 H 20 97/55 L 93 09/10/22 03:17 09/10/22 02:28 113 H 110/65 09/10/22 02:29 113 H 110/65 09/10/22 02:05 124 H 18 100/61 93 O2 Del Method O2 Flow Rate 09/10/22 11:31 Room Air 10/25/22 08:00 Room Air 09/10/22 07:41 Room Air 09/10/22 04:48 Nasal Cannula 2 09/10/22 03:17 Nasal Cannula 2 09/10/22 02:28 09/10/22 02:29 09/10/22 02:05 Nasal Cannula 2 PG Care Time/CCT Total # of Minutes Spent Total Time Spent with Patient: Total time spent is greater than 50% in coordination of care (as documented) at patient's floor/unit and/or counseling patient: Coding Level of Care Code 00635 Subseq Hosp Care Lvl 3 Diagnoses Cough R05.9
[2022-09-10] MEDS: METOPROLOL SUCC 50MG EXT REL TAB PO SCH ×2 (14:17→20:08)
[2022-09-10] MEDS ORDERED: CARBOHYDRATES FOR HYPOGLYCEMIA PO PRN (14:45)
[2022-09-10] MEDS ORDERED: GLUCOSE 10 TAB/TUBE PO PRN (14:45)
[2022-09-10] MEDS ORDERED: GLUCOSE 40% GEL 15 GM TUBE PO PRN (14:45)
[2022-09-10] MEDS ORDERED: GLUCAGON FOR INJ 1 MG VIAL IM PRN (14:45)
[2022-09-10] MEDS ORDERED: DEXTROSE 50% 50 ML SYRINGE IV PRN (14:45)
[2022-09-10] MEDS: PANTOprazole 40 MG TAB PO SCH (16:27)
[2022-09-10] MEDS: INSULIN ASPART PER UNIT SC SCH ×2 (17:31→20:48)
[2022-09-10] MEDS: FLUTICASONE PROPIONATE NA SPR 16 GM BTL SCH (20:08)
[2022-09-10] MEDS: BENZONATATE 100 MG CAPSULE PO PRN (22:17)
[2022-09-10] MEDS: MELATONIN 3 MG TAB PO PRN (22:17)
[2022-09-11] MEDS: guaiFENesin SUGAR FREE 200 MG/10 ML UDC PO SCH ×3 (01:03→07:44)
--- NOTE | 2022-09-11 06:08 | Electrocardiogram Report ---
Test Reason : Blood Pressure : / mmHG Vent. Rate : 137 BPM Atrial Rate : 166 BPM P-R Int : 000 ms QRS Dur : 086 ms QT Int : 300 ms P-R-T Axes : 000 -06 235 degrees QTc Int : 453 ms Atrial fibrillation with rapid ventricular response Nonspecific ST and T wave abnormality Abnormal ECG When compared with ECG of 08-SEP-2022 14:12, Atrial fibrillation has replaced Sinus rhythm Confirmed by Abhijit Peralta ([id number]) on 09/11/2022 6:08:17 AM Referred By: REFERRED SELF Confirmed By:Abhijit Peralta
[2022-09-11] MEDS: ASPIRIN 81 MG ECTAB PO SCH (07:44)
[2022-09-11] MEDS: CHOLECALCIFEROL 1,000 UNITS 25 MCG TAB PO SCH (07:44)
[2022-09-11] MEDS: COLCHICINE 0.6 MG TAB PO SCH (07:44)
[2022-09-11] MEDS: allopurinoL 300 MG TAB PO SCH (07:45)
[2022-09-11] MEDS: amLODIPine BESYLATE 5 MG TAB PO SCH (07:45)
[2022-09-11] MEDS: ATORVASTATIN 40 MG TAB PO SCH (07:45)
[2022-09-11 08:56] LABS: Hematocrit (blood only) 38.1 % (34.1-44.9); Hemoglobin 12.7 g/dl (12.0-16.0); Mean Corpuscular Hgb Conc 33.3 g/dL (32.0-36.0); Mean Corpuscular Volume 84.1 fL (80.0-100.0); Mean Platelet Volume 9.2 fL (9.4-12.3); Platelet Count 389 K/uL (130-400); RDW Coefficient of Variation 14.3 % (11.5-14.5); RDW Standard Deviation 43.6 fL (36.4-46.3); Red Blood Count 4.53 M/uL (3.93-5.22); White Blood Count 16.71 K/ul (4.8-10.8)
[2022-09-11] MEDS: INSULIN ASPART PER UNIT SC SCH (09:07)
[2022-09-11] MEDS: METOPROLOL SUCC 50MG EXT REL TAB PO SCH (09:13)
[2022-09-11 09:22] LABS: BUN Creatinine Ratio 23.2 (10-20); Calcium 9.5 mg/dl (8.5-10.1); Creatinine Clr Calc Pharmacy 43.8 ml/min; Est GFR (African American) 63.7 ml/min; Magnesium 1.9 mg/dl (1.7-2.4); Potassium 4.2 mmol/L (3.5-5.1)
--- NOTE | 2022-09-11 10:20 | XCELERA ---
[id number]
--- NOTE | 2022-09-11 12:21 | Cardiology Progress Note ---
Date of Service September 11, 2022 Assessment & Plan (1) Cough: Plan: 2. Pericardial effusion 3. CAD-post PCI to LAD, D2. Residual moderate left main disease 3. Recovered cardiomyopathy/HFpEFquestion prior stress-induced cardiomyopathy 4. Elevated ESR 5. Atrial fibrillation with RVR Feeling better today, cough and chest pain improved. Has remained in sinus rhythm over last 24 hrs. Repeat echo shows stable pericardial effusion. From a cardiac standpoint OK with discharge today. -- Will arrange for 14d MCOT on discharge -- Continue Toprol 300mg daily -- Continue colchicine 0.6 mg BID -- Continue current Aspirin, statin -- Resume PRN furosemide Repeat limited echo in 2 weeks. Follow-up with me in 3 weeks. Admission and Anticipated Discharge Date Admission Date: September 08, 2022 Subjective Cough improved. Prior chest pain improved. Denies significant shortness of breath. No additional AF over the last 24 hrs. Review of Systems Review of Systems: All systems reviewed & are unremarkable except as noted in HPI & below Physical Exam Physical Exam: General: Comfortable HEENT: Sclerae anicteric Lungs: Clear to auscultation bilaterally Cardiac: Regular rate and rhythm, no murmurs. Vascular: 2+ radial, DP pulses. Abdomen: Soft, nontender Extremities: Well perfused, no peripheral edema Neuro: Nonfocal Psych: Alert orient x3, normal affect and mood Results & Data ([facility]) Vital Signs (Past 12 Hours) Vital Signs Temp Pulse Pulse Pulse Resp BP Pulse Ox 09/11/22 11:49 97.9 F 86 76 20 101/70 94 09/11/22 11:15 97.9 F 76 20 101/70 94 09/11/22 07:38 98.2 F 81 20 141/76 H 92 09/11/22 06:18 70 09/11/22 04:14 98.1 F 77 20 151/90 H 94 O2 Del Method 09/11/22 11:49 09/11/22 11:15 Room Air 09/11/22 07:38 Room Air 09/11/22 06:18 09/11/22 04:14 Room Air PG Care Time/CCT Total # of Minutes Spent Total Time Spent with Patient: Total time spent is greater than 50% in coordination of care (as documented) at patient's floor/unit and/or counseling patient: Coding Level of Care Code 23291 Subseq Hosp Care Lvl 3 Diagnoses Cough R05.9
--- NOTE | 2022-09-11 17:15 | Discharge Summary ---
Date of Service September 11, 2022 Admission HPI Per Admitting Provider Shaina is a 82 year old female with a PMH significant for post CAD s/p [place]/diagonal stenting 11/2020, HTN, Hyperlipidemia, GERD, Gout, and depression, who presented to the [facility] ED with a 3 week history of persistent cough. In the ED the patient was found to be afebrile, hemodynamically stable, and stable on RA. Labs were significant for a leukocytosis of 27, left shift of 24, stable renal function and electrolytes, high sensitivity troponin of 9.5, BNP of 204, procal of < 0.05, and negative viral biofire. Chest xray showed "Cardiomegaly without radiographic evidence of congestive failure. Left pleural effusion with left basilar consolidation. This could represent atelectasis and/or pneumonia/aspiration pneumonitis. Clinical correlation will be required. Radiographic follow-up to resolution is recommended.". Prior to admission the patient was given one dose of Cefepime and Hydrocodone for cough. At the time of the exam the patient was resting comfortably in bed in no acute distress. By the time I arrived to see the patient her family had already left as they had been told she was being admitted. History was obtained from the patient but she is unsure of the medications she was given recently. She started developing a non-productive cough approximately 2-3 weeks ago. She first saw her PCP who prescribed medication but it did not help. She was seen at the [facility] ED on 08/30/22 for the same symptoms. Per chart review, she was discharged with amoxicillin, azithromycin, a 5 day course of 40 mg PO prednisone, and Tessalon pearls. She completed this course of antibiotics and steroids but states that she is still having a persistent cough. Per chart review I was able to see that she was initially prescribed a 7 day course of Doxycycline from her PCP on 08/20/22. She denies recent fevers and chills, chest pain, SOB, abdominal pain, dysuria, hematuria, and recent falls. Her persistent cough is what's bothering her the most at the present time. She was prescribed an albuterol inhaler as well, which she states she has been using but without relief of her symptoms. She did have a few episodes of nausea and vomiting two nights ago, she denies choking on any of the vomit. She has been able to eat and drink well, she took all of her am medications today. I spoke to her regarding code status, she would like to be a DNR/DNI. Principal Diagnosis Paroxysmal atrial fibrillation Cough - Likely related to losartan Discharge Exam Constitutional Gen: NAD CV: RRR RR: No wheezing, good air movement Discharge Data Allergies Allergy/AdvReac Type Severity Reaction Status Date / Time No Known Allergies Allergy Unknown Verified 06/20/22 13:07 Consultations 09/08/22 16:08 ED Decision to Admit Stat 09/08/22 21:40 Consult Cardiology Routine Ordered Studies 09/08/22 17:37 CT chest diagnostic wo con Urgent Diabetes Follow up Diabetes Follow-up Needed for Newly Diagnosed Diabetes Hospital Course (1) Paroxysmal atrial fibrillation: Started going into atrial fibrillation around midnight on 11/09, then stayed in it until about 7am. Discussed with cardiology, will increase Toprol. Hold off on anticoagulation for now given new pericardial effusion. - No further afib in 24 before discharged. - Discharged on higher dose of Toprol. HR still adequate in sinus ~80 - 90 bpm. Will grape picker monitor on way out to follow burden of afib. No anticoagulation per cardiology at this time. (2) Cough: Ddx includes losartan (3%), GERD, post-nasal drip as all possible chronic coughs. Improved today, so possibly one of those three. 1) Stop losartan 2) Take PPI with dinner 3) Trial Flonase Improving by discharge. (3) S/P coronary artery stent placement: - Continue aspirin but is no longer on Plavix - Continue home atorvastatin, losartan, Toprol-XL (4) Cardiomyopathy: Has a history of previous reduced EF which is now recovered. Follows with cardiology, Dr. Sellers. - Most recent echocardiogram in 04/2022 with preserved EF (5) Hypertension: Blood pressures labile in the ER but mostly elevated. Presently 140/80. - Continue Lasix, amlodipine, and metoprolol (6) Hyperlipidemia: (7) Gout: (8) GERD (gastroesophageal reflux disease): (9) Blood glucose elevated: Total Time Total Time Spent Total Time Spent (In Minutes): 45 Discharge Plan Discharge Items Patient Disposition: Home - Home Health Services Reason For Visit: SOB Discharge Diagnosis: Cough Activity: Resume your previous activity Non-emergency contact: Primary Care Provider and Vegetable Inspector Call non-emergency contact if: your symptoms worsen Follow-up/Referrals: Connie Bay MD [Primary Care Provider] - (PLEASE CALL YOUR PRIMARY CARE PROVIDER TO SCHEDULE A DISCHARGE FOLLOW-UP APPOINTMENT WITHIN 7-10 DAYS.) Diet: Low Sodium (2gm) Addtl Attending Provider Instructions: You have some fluid around the heart. We started a medication to help calm this down. You were admitted with a cough that had been going on for 3 weeks. 1) We stopped your losartan which can cause cough in about 3% of people. 2) We started your acid-blocking medication about 20 minutes before dinner which makes it more effective at blocking your stomach acid 3) We started a nasal spray to be sure you are not having mucus going down the back of your throat and causing irritaiton. These seem to have helped as the cough is improving every day. You had a run of a fast heart rhythm called atrial fibrillation. We increased a medication that can help keep your heart calm. Please see Dr. Sellers's office on the way home and follow up with him in 1-2 weeks. Pending Studies at Discharge: No Stand-Alone Forms: My [facility], Smoking Cessation Medications and DC Order Prescriptions: New metoprolol succinate 100 mg tablet extended release 24 hr 100 mg PO QAM Qty: 30 0RF fluticasone propionate 50 mcg/actuation Yolyn,Suspension 2 spray NA HS Qty: 16 0RF colchicine [Colcrys] 0.6 mg Tablet 0.6 mg PO BID Qty: 60 0RF Continued metoprolol succinate 100 mg tablet extended release 24 hr 200 mg PO HS Qty: 180 3RF atorvastatin 40 mg tablet 40 mg PO QAM Qty: 90 3RF furosemide 20 mg tablet 20 mg PO DAILY PRN (Reason: edema) Qty: 90 3RF aspirin 81 mg Tablet,Delayed Release (Dr/Ec) 81 mg PO QAM Qty: 30 11RF nitroglycerin [Nitrostat] 0.4 mg Tablet, Sublingual 0.4 mg sublingual PRN PRN (Reason: chest pain) Qty: 30 1RF multivitamin Tablet 1 tab PO QAM allopurinol 300 mg Tablet 300 mg PO QAM cholecalciferol (vitamin D3) [Vitamin D3] 1,000 unit Tablet,Chewable 1,000 unit PO QAM benzonatate 200 mg capsule 200 mg PO BID PRN (Reason: cough) Qty: 20 0RF amlodipine 5 mg tablet 5 mg PO QAM Changed pantoprazole 40 mg tablet,delayed release (DR/EC) 40 mg PO QDD Qty: 90 3RF Rx Instructions: Take 20-30 minutes before dinner. Discontinued losartan 50 mg tablet 50 mg PO DAILY amoxicillin 500 mg capsule 500 mg PO BID Qty: 14 0RF Discharge Orders: Discharge Order (Routine); Ordered 09/11/22 Ordered By: Ivan Nuñez Admission Data Admit Date/Time: 09/08/22 16:22 Attending Provider: Ivan Nuñez Admit Provider: Sushila Valentine Primary Care Provider: Connie Bay Other Providers: Sushila Valentine ; Vito Sellers Other Interventions: Discharge Summary Assessment (RN) Last Done: 09/11/22 11:49 Coding Level of Care Code D/C DAY MANAGEMENT >30 MINS Diagnoses Paroxysmal atrial fibrillation I48.0 Cough R05.9 S/P coronary artery stent placement Z95.5 Cardiomyopathy I42.9 Hypertension I10 Hypertension type: essential hypertension Hyperlipidemia E78.5 Hyperlipidemia type: unspecified Gout M10.9 Gout site: unspecified site Gout etiology: unspecified cause Chronicity: unspecified GERD (gastroesophageal reflux disease) K21.9 Esophagitis presence: esophagitis presence not specified Blood glucose elevated R73.9
--- NOTE | 2022-09-12 17:54 | Communication Note ---
Date of Service: September 12, 2022 Received monitor strip from patient's MCOT. Yesterday had an episode of atrial fibrillation with RVR to heart rate of 130 approximately 18:25. Patient today states that she did feel some fluttering yesterday evening but lasted only a few minutes. Since that time has been feeling well. Cough improved. No recurrent chest pain. Was seen by home health nurse today and per patient vitals were normal. We discussed stroke risk with atrial fibrillation and possible anticoagulation. I am somewhat hesitant to start with concern for possible bleeding pericardial space. Repeat limited echocardiogram next week and rediscuss pending findings.
--- NOTE | 2022-09-20 12:02 | Coding Query ---
CODING QUERY To promote full compliance with coding requirements relating to patient care, provider participation is requested in all cases of nurse auditor uncertainty. Please assist us with the question(s) below: Coding Question(s): Patient admitted with persistent cough of 3 wks duration and minor chest pain. 1 day after admission dx'd with PAF. * Pericardial effusion and pleural effusion dx'd on CT Chest. Echo x 2 revealed persistent pericardial effusion. Meds adjusted - Toprol for the pericardial effusion. Pt with underlying idiopathic cardiomyopathy and history of systolic heart failure. Discharge summary stated Losartan as reason for the cough. Seeking to clarify the diagnosis, after study to be responsible for this Inpatient stay. Thanks for your help! Galo Aquino, [facility] Physician's Response(s): I do not believe the pericardial effusion was the etiology of her cough. I honestly think it was an incidental (though serious) finding. I maintain that the losartan was the most likely cause of her cough. Principal Diagnosis: "that condition established after study, to be chiefly responsible for occasioning the admission of the patient to the hospital for care." Co-Existing Principal Diagnosis: "when two or more diagnoses equally meet the criteria for principal diagnosis as determined by the circumstances of admission, diagnostic work up, and/or therapy provided, and the Alphabetic Index, Tabular List, or another coding guideline does not provide sequencing direction, any one of the diagnoses may be sequenced first." "When the physician has documented what appears to be a current diagnosis in the body of the record, but has not included the diagnosis in the final diagnostic statement, the physician should be asked whether the diagnosis should be added." (Source [facility] 2 QTR90. p3-4) LAURO
== END 2022-09-11 12:44 | disposition home health service (06) | DRG 204 ==
LOC: ED 12:29 → 2W 16:22 → SUATTDRO 16:22 → 2W 19:00

== ENCOUNTER 2025-02-06 21:16 | Observation (INO) ==
[2025-02-06] MEDS: METOPROLOL TARTRATE 1 MG/ML VIAL IV STA (21:41)
--- NOTE | 2025-02-06 21:41 | Emergency Department Note ---
Impression & Plan Chest pain, Atrial flutter with rapid ventricular response, Elevated troponin ED Provider Note Provider: Sanket Ambrosio MD CHIEF COMPLAINT: Chest pain to left arm with numbness HISTORY OF PRESENT ILLNESS: Patient is a 84-year-old female past medical history including atrial fibrillation, CAD with stent, cardiomyopathy, gout, GERD presenting here today with acute onset of pain around 9 PM after finishing her shower of central left-sided chest pain rating to left arm. Some numbness with this. Little bit short of breath. Little bit wobbly in her legs but did not fall or syncopized. No abdominal pain or nausea or diaphoresis/sweating reported. No recent illness. States she had somewhat similar pain that was more severe when she had prior heart attacks. States compliance home medications but did not take her evening medications tonight. Feels some palpitations. Does not feel lightheaded and has no pain at this time. PAST MEDICAL HISTORY: As noted above MEDICATIONS: Reviewed home medications includes Eliquis SOCIAL HISTORY: Resides at home PHYSICAL EXAM: GENERAL: alert and oriented in no acute distress on stretcher Head: normocephalic and atraumatic EYES: No injection, discharge or icterus. NECK: Trachea midline. ENT: Mucous membranes pink and moist. LUNGS: Airway patent. No retractions. Breath sounds clear HEART: R irregular tachycardic rate and rhythm. No chest wall tenderness ABDOMEN: Soft and non-tender, without guarding or rebound. SKIN: Acyanotic, warm, dry, without rashes EXTREMITIES: Without swelling, tenderness or deformity NEUROLOGICAL: No focal deficits. No aphasia. No facial droop or slurred speech. EK bpm what appears to be initially a sinus tachycardia believe actually represents atrial flutter CONTINUOUS CARDIAC MONITORING: was ordered and showed a heart rate of 130s to 140s bpm in atrial flutter later sinus rhythm in the 70s EK bpm normal sinus rhythm. No PVC or PAC. No acute ST segment elevation or depression with some inferior T wave changes in lead II. QTc 434. Patient's laboratory studies and imaging reviewed. Differential includes Cardiac ischemia, aortic dissection, pulmonary embolism, pneumothorax, pneumonia, pericarditis, myocarditis, esophageal rupture, GERD, cholecystitis, pancreatitis, musculoskeletal, as well as other pathologies. IMPRESSION/MEDICAL DECISION MAKING: Patient distress and pain-free now upon arrival. No STEMI on EKG. Question sinus tachycardia versus possible atrial flutter based on initial EKG. Heart rate not very variable heart rate around 135 approximately 8 bpm. Will give additional dose of IV metoprolol as her heart rate should not be this high at rest. No concerning findings of V. tach at this time. Basic blood work is sent. Is anticoagulated doubt VTE/PE. Not having any significant back pain or get chest pain down doubt dissection. Benign abdomen denies abdominal symptoms. Electrolytes and thyroid function sent. Does not seem fluid overloaded on exam. Blood work in tonight without significant cytosis or anemia. No skin electrolyte abnormalities or renal dysfunction other than some mildly low magnesium 1.4. IV repletion ordered. No transaminitis or evidence of hepatitis/pancreatitis based on labs. IV dose metoprolol was effective in slowing her heart rate into the mid 70s what appears to be a sinus rhythm. Question if she went fast atrial flutter elevated heart rate in the 130s cause some possible demand ischemia in her chest discomfort. Troponin minimally elevated at 31.6 today. Given a dose of aspirin. Unclear why at this time she would have this elevated heart rate as she denies recent illness or medication noncompliance although has been out of one of her blood pressure medicines and has not had medicines at this evening. Discussed with her son. Well pain-free now did recommend further observation overnight. They are in agreement. DIAGNOSIS: Chest pain, rapid atrial flutter, hypomagnesemia DISPOSITION: Hospitalist will evaluate Patient was agreeable with this plan. Critical Care I have personally spent 32 minutes of critical care time in the direct management of this patient. This includes bedside care, interpretation of diagnostic studies, and testing, discussion with consultants, patient, and family members, and other required patient management activities. These 32 minutes is in excess of all separately billable procedures. Past Med/Surg History Problem List (Updated 02/06/25 @ 23:41 by Karin Amador PA-C) Dizziness Hypomagnesemia Elevated troponin (Acute) Atrial flutter with rapid ventricular response (Acute) Chest pain (Acute) Paroxysmal atrial fibrillation Blood glucose elevated Pneumonia (Acute) Cough (Acute) Lab test negative for COVID-19 virus (Acute) History of coronary artery disease (Acute) Elevated WBC count (Acute) S/P coronary artery stent placement Cardiomyopathy Acute systolic CHF (congestive heart failure) Hypertension Hyperlipidemia Gout GERD (gastroesophageal reflux disease) controlled Depression CAD (coronary artery disease) Medical History Chest pain Hypoxia ST elevation myocardial infarction (STEMI) November 2020 s/p MEGGAN to D2 and mid-LAD 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 Osteoarthritis Surgical History History of intestinal surgery History of right hip replacement Right CHRISTINE: 07/22/19: SAB x 1 at L3-L4 at [facility] History of colonoscopy History of repair of rotator cuff RIGHT History of cholecystectomy History of hysterectomy TOTAL History of appendectomy History of total knee replacement LEFT History of cataract surgery R/L Family History Brother Family hx of colon cancer Sister Myocardial infarction Social History Smoking Status: Never smoker Second Hand Exposure: No; Do You Dip or Chew Tobacco: No; Hx Alcohol Use: Yes Hx Substance Use: No Preferred Language: [place] Communication Ability: Effective Child Care Associate Required: No Beliefs That Will Affect Care: None marital status: / Current Living Situation: Family Current Living Situation Comment: Lives w/ son, Pedro Borja current occupation: RETIRED Feels Safe at Home: Yes Assistive Devices: None Allergies Allergies Allergy/AdvReac Type Severity Reaction Status Date / Time No Known Allergies Allergy Unknown Verified 09/29/24 13:40 Home Meds Home Medications Medication Instructions Recorded Confirmed allopurinol 300 mg tablet 300 mg PO QAM 07/13/19 02/06/25 multivitamin 1 tab PO QAM 07/13/19 02/06/25 cholecalciferol (vitamin D3) 25 1,000 unit PO QAM 11/19/19 02/06/25 mcg (1,000 unit) chewable tablet (Vitamin D3) Previous Rx's Medication Instructions Recorded nitroglycerin 0.4 mg sublingual 0.4 mg sublingual PRN PRN chest 11/29/20 tablet (Nitrostat) pain #30 tabs metoprolol succinate 100 mg 200 mg (2 x 100 mg) PO HS #180 tabs 03/05/21 tablet,extended release 24 hr fluticasone propionate 50 2 spray NA HS #16 grams 09/11/22 mcg/actuation nasal spray,suspension pantoprazole 40 mg tablet,delayed 40 mg PO QDD #90 tabs 09/11/22 release atorvastatin 40 mg tablet 40 mg PO QAM #90 tabs 07/22/24 amlodipine 10 mg tablet 10 mg PO QAM #90 tabs 10/19/24 apixaban 5 mg tablet (Eliquis) 5 mg PO BID #180 tabs 01/02/25 Results & Data (ED) Vital Signs Vital Signs - 24 hr 02/06/25 21:17 02/06/25 21:30 02/06/25 21:31 Pulse Rate 150 H 138 H 140 H Pulse Rhythm Regular Respiratory Rate 16 20 Respiratory Effort / Characteristics Non-Labored Spontaneous Respiratory Depth Normal Respiratory Pattern Regular Blood Pressure 210/107 H Blood Pressure Mean 141 Blood Pressure Position Sitting Pulse Oximetry 97 94 Oxygen Delivery Method Room Air Room Air Sepsis Recent Fever Within 48 Hours No Sepsis New/Unexplained Change in Mental Status N/A Sepsis Action Taken by Nursing No Action Required 02/06/25 21:36 02/06/25 21:41 02/06/25 22:00 Pulse Rate 124 H 136 H 78 Pulse Rhythm Respiratory Rate 20 19 Respiratory Effort / Characteristics Respiratory Depth Respiratory Pattern Blood Pressure 177/128 H 177/128 H 193/94 H Blood Pressure Mean 152 110 Blood Pressure Position Pulse Oximetry 94 92 Oxygen Delivery Method Sepsis Recent Fever Within 48 Hours Sepsis New/Unexplained Change in Mental Status Sepsis Action Taken by Nursing 02/06/25 22:00 02/06/25 22:06 02/06/25 22:30 Pulse Rate 75 83 81 Pulse Rhythm Respiratory Rate 22 19 Respiratory Effort / Characteristics Respiratory Depth Respiratory Pattern Blood Pressure 193/94 H 209/111 H Blood Pressure Mean 110 165 Blood Pressure Position Pulse Oximetry 94 94 Oxygen Delivery Method Sepsis Recent Fever Within 48 Hours Sepsis New/Unexplained Change in Mental Status Sepsis Action Taken by Nursing 02/06/25 22:42 02/06/25 23:00 02/06/25 23:30 Pulse Rate 84 77 84 Pulse Rhythm Respiratory Rate 20 20 17 Respiratory Effort / Characteristics Respiratory Depth Respiratory Pattern Blood Pressure 236/169 H 230/121 H 175/93 H Blood Pressure Mean 194 152 144 Blood Pressure Position Pulse Oximetry 97 94 95 Oxygen Delivery Method Sepsis Recent Fever Within 48 Hours Sepsis New/Unexplained Change in Mental Status Sepsis Action Taken by Nursing 02/07/25 00:00 Pulse Rate 80 Pulse Rhythm Respiratory Rate 19 Respiratory Effort / Characteristics Respiratory Depth Respiratory Pattern Blood Pressure 188/102 H Blood Pressure Mean 134 Blood Pressure Position Pulse Oximetry 95 Oxygen Delivery Method Sepsis Recent Fever Within 48 Hours Sepsis New/Unexplained Change in Mental Status Sepsis Action Taken by Nursing Laboratory Data 02/06/25 21:30 02/06/25 21:30 Lab Results 02/06/25 02/06/25 02/06/25 Range/Units 21:29 21:30 23:16 WBC 9.98 (4.8-10.8) K/ul RBC 5.23 (4.20-5.40) M/uL Hgb 15.1 (12.0-16.0) g/dl Hct 45.0 (37.0-47.0) % MCV 86.0 (80.0-100.0) fL MCH 28.9 (25.0-34.0) pg MCHC 33.6 (32.0-36.0) g/dL RDW Std Deviation 41.8 (36.4-46.3) fL RDW Coeff of Nicky 13.3 (11.5-14.5) % Plt Count 309 (130-400) K/uL MPV 9.0 L (9.4-12.4) fL Immature Gran % (Auto) 0.3 % Neut % (Auto) 62.3 % Lymph % (Auto) 28.0 % Knott % (Auto) 6.8 % Eos % (Auto) 2.0 % Baso % (Auto) 0.6 % Neut # (Auto) 6.22 (1.40-6.50) K/uL Lymph # (Auto) 2.79 (1.20-3.40) K/uL Knott # (Auto) 0.68 H (0.11-0.59) K/uL Eos # (Auto) 0.20 (0.00-0.50) K/uL Baso # (Auto) 0.06 (0.00-0.20) K/uL Immature Gran # (Auto) 0.03 (0.01-0.20) K/uL PT 11.2 (9.0-12.0) Seconds INR 1.0 (0.9-1.1) APTT 28 (21-31) Seconds PTT Ratio 1.0 Sodium 141 (136-145) mmol/L Potassium 3.6 (3.5-5.1) mmol/L Chloride 102 (98-107) mmol/L Carbon Dioxide 30 (21-32) mmol/L Anion Gap 9 (3-11) BUN 16 (6-23) mg/dl Creatinine 0.94 (0.6-1.2) mg/dl Est Cr Clr Drug Dosing 43.3 ml/min eGFR 59.09 BUN/Creatinine Ratio 17.0 (10-20) Glucose 200 H (70-99(Fasting)) mg/dl Calcium 10.3 (8.6-10.3) mg/dl Magnesium 1.4 L (1.7-2.4) mg/dl Total Bilirubin 0.5 (0.2-1.0) mg/dl AST 19 (13-39) U/L ALT 18 (7-52) U/L Alkaline Phosphatase 91 (34-104) U/L Troponin I High Sens 31.6 H 38.4 H (0-14) pg/ml Total Protein 7.6 (6.0-8.3) gm/dl Albumin 4.5 (3.4-5.0) gm/dl Globulin 3.1 (2.5-4.0) gm/dl Albumin/Globulin Ratio 1.5 (0.9-2) Lipase 21 (11-82) U/L TSH 2.670 (0.300-4.500) uIu/ml SARS-CoV-2 (PCR) NEGATIVE (Negative) Influenza Type A (PCR) Negative (Neg) Influenza Type B (PCR) Negative (Neg) RSV (RT-PCR) Negative (Neg) Administered Medications Discontinued Medications Aspirin (Aspirin 81 Mg Chew) 324 mg PO NOW STA Stop: 02/06/25 22:14 Last Admin: 02/06/25 22:36 Dose: 324 mg Documented By: FRANK Magnesium Sulfate/Dextrose (Magnesium Sulfate / D5w) 1 gm in 100 mls @ 200 mls/hr IV Q30M REMI Stop: 02/06/25 23:14 Last Infusion: 02/06/25 23:39 Dose: Infused Documented By: Admin: 02/06/25 23:08 Dose: 200 mls/hr Documented By: Infusion: 02/06/25 23:07 Dose: Infused Documented By: Admin: 02/06/25 22:37 Dose: 200 mls/hr Documented By: FRANK Metoprolol Succinate (Metoprolol Succ 50mg Ext Rel Tab) 200 mg PO NOW STA Stop: 02/06/25 22:56 Last Admin: 02/06/25 23:08 Dose: 200 mg Documented By: FRANK Metoprolol Tartrate (Metoprolol Tartrate 1 Mg/Ml Vial) 5 mg IV NOW STA Stop: 02/06/25 21:38 Last Admin: 02/06/25 21:41 Dose: 5 mg Documented By: FRANK Discharge Plan Visit Data Chief Complaint: Chest Pain Stated Complaint: CHEST PAIN ED Provider: Sanket Ambrosio Discharge Problem: Chest pain, Atrial flutter with rapid ventricular response, Elevated troponin Patient Disposition: Being Evaluated by Hospitalist Forms Stand Alone Forms: [facility] Prescriptions Prescriptions: No Action metoprolol succinate 100 mg tablet extended release 24 hr 200 mg PO HS Qty: 180 3RF atorvastatin 40 mg tablet 40 mg PO QAM Qty: 90 3RF amlodipine 10 mg tablet 10 mg PO QAM Qty: 90 3RF Eliquis 5 mg tablet 5 mg PO BID Qty: 180 3RF nitroglycerin [Nitrostat] 0.4 mg Tablet, Sublingual 0.4 mg sublingual PRN PRN (Reason: chest pain) Qty: 30 1RF multivitamin Tablet 1 tab PO QAM allopurinol 300 mg Tablet 300 mg PO QAM cholecalciferol (vitamin D3) [Vitamin D3] 1,000 unit Tablet,Chewable 1,000 unit PO QAM fluticasone propionate 50 mcg/actuation Gabriels,Suspension 2 spray NA HS Qty: 16 0RF pantoprazole 40 mg tablet,delayed release (DR/EC) 40 mg PO QDD Qty: 90 3RF Rx Instructions: Take 20-30 minutes before dinner. Referrals Referrals: Connie Bay MD [Primary Care Provider] -
[2025-02-06 21:57] LABS: Basophils # (auto) 0.06 K/uL (0.00-0.20); Basophils % (auto) 0.6 %; Hemoglobin 15.1 g/dl (12.0-16.0); Immature Granulocytes # (auto) 0.03 K/uL (0.01-0.20); Immature Granulocytes % (auto) 0.3 %; Lymphocytes # (auto) 2.79 K/uL (1.20-3.40); Mean Corpuscular Hemoglobin 28.9 pg (25.0-34.0); Mean Corpuscular Hgb Conc 33.6 g/dL (32.0-36.0); Monocytes # (auto) 0.68 K/uL (0.11-0.59); Monocytes % (auto) 6.8 %; Neutrophils # (auto) 6.22 K/uL (1.40-6.50); Neutrophils % (auto) 62.3 %; Platelet Count 309 K/uL (130-400); RDW Coefficient of Variation 13.3 % (11.5-14.5); RDW Standard Deviation 41.8 fL (36.4-46.3); Red Blood Count 5.23 M/uL (4.20-5.40); White Blood Count 9.98 K/ul (4.8-10.8)
[2025-02-06 22:03] LABS: Albumin Globulin Ratio 1.5 (0.9-2); Albumin Level 4.5 gm/dl (3.4-5.0); Bilirubin,Total 0.5 mg/dl (0.2-1.0); Calcium 10.3 mg/dl (8.6-10.3); Creatinine Clr Calc Pharmacy 43.3 ml/min; Globulin 3.1 gm/dl (2.5-4.0); Magnesium 1.4 mg/dl (1.7-2.4); Potassium 3.6 mmol/L (3.5-5.1); Total Protein 7.6 gm/dl (6.0-8.3)
[2025-02-06 22:09] LABS: Troponin I High Sensitivity 31.6 pg/ml (0-14)
[2025-02-06 22:15] LABS: Partial Thromboplastin Time 28 Seconds (21-31); Prothrombin Time 11.2 Seconds (9.0-12.0)
[2025-02-06 22:19] LABS: Thyroid Stimulating Hormone 2.67 uIu/ml (0.300-4.500)
[2025-02-06 22:26] LABS: Influenza A virus by PCR Negative (Neg); Influenza B virus by PCR Negative (Neg); RSV by PCR Negative (Neg); SARS CoV2 RNA(COVID-19) Ceph NEGATIVE (Negative)
[2025-02-06] MEDS: ASPIRIN 81 MG CHEW PO STA (22:36)
[2025-02-06] MEDS: MAGNESIUM SULFATE / D5W 1 GM/100 ML BAG IV SCH (22:37)
--- NOTE | 2025-02-06 23:02 | History & Physical Report ---
Date of Service February 06, 2025 Assessment & Plan (1) Chest pain: (2) Hypomagnesemia: (3) Dizziness: Plan 84-year-old female PMHx PAF on Eliquis, CAD, GERD, HLD, HTN, cardiomyopathy, systolic HF, and s/p stents presenting for onset of chest pain developing day of arrival at 2100. ED evaluation reveals no leukocytosis, stable H&H, PT/INR WNL; CMP with glucose 200, magnesium 1.4; troponin 31.6, pending repeat; EKG SVT with occasional PVCs at 140 bpm on arrival; provided with metoprolol tartrate 5 mg IV, mag sulfate 1 g IV, and aspirin 324 mg p.o. in ED. #Chest pain Chest pain starting at 2100 the day of arrival with radiation down L arm and some tingling sensation; associated symptoms of palpitations; h/o cardiac disease with 2 prior MIs and stent placement. Follows with cardiology. Of note, patient gets her prescriptions through [facility] and has been without her normal doses for likely 1-2 days. Suspect that the chest pain is likely cardiac in nature, unstable angina but also some component of not taking medications therefore her HR/BP were out of normal limits. May be causing some of her associated symptoms. - EKG SVT with PVCs at 140 bpm- metoprolol 5mg IV given in ED to normalize HR; HR stable at time of admission - Troponin 31.6, pending repeat; ekg without ischemic changes- likely demand related - CBC without leukocytosis and with stable H/H; TSH WNL - CXR pending official read - Echo 08/2022 55 to 60%, mild concentric LVH; pending echo - Lipid panel pending; on atorvastatin 40mg daily - Hypertensive on admission- start with home dose of metoprolol to lower BP; will adjust as appropriate #Hypomagnesemia No h/o. Having some dizziness. 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 She has not had any LOC, weakness, or syncopal events. Feels that her speech may be slightly slurred compared to normal but that this was not an abrupt change. She has no neurological deficits on exam at time of admission, all CN grossly intact. Pt is on Eliquis and atorvastatin. - CT head pending - PT/OT consulted placed - appreciate assistance #HLD- Atorvastatin #HTN/Afib- Amlodipine/Metoprolol; Eliquis #GERD- Pantoprazole Dispo: Admit, PCU VTE Prophylaxis: Eliquis This document was dictated utilizing [employer]. Please excuse any grammatical errors that may be secondary to use of this software. Admission and Anticipated Discharge Date Admission Date: 02/06/2025 History of Present Illness Chief Complaint: Chest pain Primary Care Provider: Connie Bay MD 84-year-old female PMHx PAF on Eliquis, CAD, GERD, HLD, HTN, cardiomyopathy, systolic HF, and s/p stents presenting for onset of chest pain developing day of arrival at 2100. Patient with history of prior NC. States that on the day of arrival, she was getting out of the shower when she started to notice left-sided chest pain which she mostly describes as heaviness, mainly localized to the left side of her chest. States that the pain radiated somewhat down her left arm and shoulder not to her back or neck. Reports that the symptoms lasted approximately 30 minutes but it felt similar, less severe than prior MIs. Did have slight occurrence of palpitations which she states she sometimes gets. Denies diaphoresis but she did just get out of the shower; also denying SOB, N/V, abdominal pain, or syncope. Of note, patient does state that for the past week or so she has been having some dizziness in which she feels that she is off balance that she may fall over. She states that she might of had some of this symptom on the day of arrival but no syncope or falls. Also denying D/C, LUTS,, URI symptoms, fever/chills, cough. ED evaluation reveals no leukocytosis, stable H&H, PT/INR WNL; CMP with glucose 200, magnesium 1.4; troponin 31.6, pending repeat; EKG SVT with occasional PVCs at 140 bpm on arrival; provided with metoprolol tartrate 5 mg IV, mag sulfate 1 g IV, and aspirin 324 mg p.o. in ED. Please see Dr. Marshall's attestation for adjustments/additions to treatment plan. Allergies Allergy/AdvReac Type Severity Reaction Status Date / Time No Known Allergies Allergy Unknown Verified 09/29/24 13:40 Home Medications Medication Instructions Recorded Confirmed Type allopurinol 300 mg tablet 300 mg PO QAM 07/13/19 02/06/25 History multivitamin 1 tab PO QAM 07/13/19 02/06/25 History cholecalciferol (vitamin D3) 25 1,000 unit PO QAM 11/19/19 02/06/25 History mcg (1,000 unit) chewable tablet (Vitamin D3) nitroglycerin 0.4 mg sublingual 0.4 mg sublingual PRN PRN chest 11/29/20 02/06/25 Rx tablet (Nitrostat) pain #30 tabs metoprolol succinate 100 mg 200 mg (2 x 100 mg) PO HS #180 tabs 03/05/21 02/06/25 Rx tablet,extended release 24 hr fluticasone propionate 50 2 spray NA HS #16 grams 09/11/22 02/06/25 Rx mcg/actuation nasal spray,suspension pantoprazole 40 mg tablet,delayed 40 mg PO QDD #90 tabs 09/11/22 02/06/25 Rx release atorvastatin 40 mg tablet 40 mg PO QAM #90 tabs 07/22/24 02/06/25 Rx amlodipine 10 mg tablet 10 mg PO QAM #90 tabs 10/19/24 02/06/25 Rx apixaban 5 mg tablet (Eliquis) 5 mg PO BID #180 tabs 01/02/25 02/06/25 Rx Past Med/Surg History Problem List Dizziness Hypomagnesemia Elevated troponin (Acute) Atrial flutter with rapid ventricular response (Acute) Chest pain (Acute) Paroxysmal atrial fibrillation Blood glucose elevated Pneumonia (Acute) Cough (Acute) Lab test negative for COVID-19 virus (Acute) History of coronary artery disease (Acute) Elevated WBC count (Acute) S/P coronary artery stent placement Cardiomyopathy Acute systolic CHF (congestive heart failure) Hypertension Hyperlipidemia Gout GERD (gastroesophageal reflux disease) controlled Depression CAD (coronary artery disease) Medical History Chest pain Hypoxia ST elevation myocardial infarction (STEMI) November 2020 s/p MEGGAN to D2 and mid-LAD 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 Osteoarthritis Surgical History History of intestinal surgery History of right hip replacement Right CHRISTINE: 07/22/19: SAB x 1 at L3-L4 at [facility] History of colonoscopy History of repair of rotator cuff RIGHT History of cholecystectomy History of hysterectomy TOTAL History of appendectomy History of total knee replacement LEFT History of cataract surgery R/L Family History Brother Family hx of colon cancer Sister Myocardial infarction Social History Smoking Status: Never smoker Second Hand Exposure: No; Do You Dip or Chew Tobacco: No; Hx Alcohol Use: Yes Hx Substance Use: No Preferred Language: Albanian Communication Ability: Effective Antique Refinisher Required: No Beliefs That Will Affect Care: None marital status: / Current Living Situation: Family Current Living Situation Comment: Lives w/ son, Pedro Borja current occupation: RETIRED Feels Safe at Home: Yes Assistive Devices: None Review of Systems Review of Systems: All systems reviewed & are unremarkable except as noted in Subjective Physical Exam Physical Exam: General: No acute distress; Hypertensive in the 200s/100s during visit Skin: Warm and dry Head: Normocephalic, atraumatic Eyes: PERRL, conjunctivae clear, sclera non-icteric ENT: External ear and ear canal without swelling; nose atraumatic; good dentition, tongue normal appearance, pharynx normal Neck: Supple, no LAD Cardio: RRR, no M/G/R, S1 and S2 normal Resp: No respiratory distress, Lungs CTA in all lobes bilaterally, no wheezes, rales, or rhonchi Abdomen: Soft, symmetric, nontender; No masses or hepatosplenomegaly; Bowel sounds normoactive MSK: No deformities; pulses palpable and equal; no edema. Neuro: II- PERRL, no VF deficits III, IV, - EOMs intact, no deviation, no nystagmus V- Normal sensation in all locations VII- No asymmetry, no nasolabial fold flattening VIII- Normal hearing to speech IX, X- Normal palatal elevation, no ulnar deviation XI- 4/5 head turn + shoulder shrug bilaterally XII- Midline tongue protrusion Motor: 4/5 strength throughout BUE/BLE Reflexes: WNL throughout, no clonus Sensory: Normal sensation throughout, no hemineglect Coordination: Normal [id number], no tremor Gait: Unable to asses; no complaints Psych: Appropriate mood and affect; good judgement and insight. Results & Data Results & Data Vital Signs (Past 12 Hours) Vital Signs Pulse Resp BP Pulse Ox O2 Del Method 02/06/25 22:30 81 19 209/111 H 94 02/06/25 22:06 83 02/06/25 22:00 75 22 193/94 H 94 02/06/25 22:00 78 19 193/94 H 92 02/06/25 21:41 136 H 177/128 H 02/06/25 21:36 124 H 20 177/128 H 94 02/06/25 21:31 140 H 20 94 Room Air 02/06/25 21:30 138 H 02/06/25 21:17 150 H 16 210/107 H 97 Room Air Laboratory Results 02/06/25 02/06/25 21:30 21:29 WBC 9.98 RBC 5.23 Hgb 15.1 Hct 45.0 MCV 86.0 MCH 28.9 MCHC 33.6 RDW Std Deviation 41.8 RDW Coeff of Nicky 13.3 Plt Count 309 MPV 9.0 L Immature Gran % (Auto) 0.3 Neut % (Auto) 62.3 Lymph % (Auto) 28.0 [place] % (Auto) 6.8 Eos % (Auto) 2.0 Baso % (Auto) 0.6 Neut # (Auto) 6.22 Lymph # (Auto) 2.79 [place] # (Auto) 0.68 H Eos # (Auto) 0.20 Baso # (Auto) 0.06 Immature Gran # (Auto) 0.03 PT 11.2 INR 1.0 APTT 28 PTT Ratio 1.0 Sodium 141 Potassium 3.6 Chloride 102 Carbon Dioxide 30 Anion Gap 9 BUN 16 Creatinine 0.94 Est Cr Clr Drug Dosing 43.3 eGFR 59.09 BUN/Creatinine Ratio 17.0 Glucose 200 H Calcium 10.3 Magnesium 1.4 L Total Bilirubin 0.5 AST 19 ALT 18 Alkaline Phosphatase 91 Troponin I High Sens 31.6 H Total Protein 7.6 Albumin 4.5 Globulin 3.1 Albumin/Globulin Ratio 1.5 Lipase 21 TSH 2.670 SARS-CoV-2 (PCR) NEGATIVE Influenza Type A (PCR) Negative Influenza Type B (PCR) Negative RSV (RT-PCR) Negative Medications Administered Metoprolol heart rate 5 mg IV Magnesium sulfate 1 g IV Aspirin 324 mg p.o. ECG Additional Comments: SVT with occasional PVCs, LVH, nonspecific ST-T wave abnormality 140 BPM, QRS 76, QT/QTc 350/534, PRT */-50 Code Status & VTE Plan Code Status Full VTE Prophylaxis Plan VTE Prophylaxis will be ordered: Yes Supervising Physician Co-Signing Physician Notes Patient seen and examined, chart reviewed, case discussed with GENOVEVA Amador and I agree with the assessment plan as documented above. In brief patient is an 84-year-old female presenting with left-sided chest pain as well as palpitations and dizziness. Markedly tachycardic and hypertensive upon arrival Troponin is increased mildly from 31.6 to 38.4 on 2-hour repeat Magnesium = 1.4, repleted Patient resting comfortably in bed, no acute distress + S1, S2, regular Lungs CTA Abdomen soft, nontender, nondistended Extremities warm and well-perfused with no clubbing/cyanosis/edema Labs and images reviewed Assessment/plan Blood pressure and heart rate control. Will resume home medications. May need to increase her metoprolol if tolerated Suspect that elevation of troponin is demand ischemia in setting of elevated heart rate and blood pressure rather than ACS Remainder as above PG Care Time/CCT Total # of Minutes Spent Total Time Spent with Patient: Total time spent is greater than 50% in coordination of care (as documented) at patient's floor/unit and/or counseling patient: Coding Level of Care Code 58691 INT INP/OBS CARE 3/75MIN Diagnoses Chest pain R07.9 Hypomagnesemia E83.42 Dizziness R42
[2025-02-06] MEDS: METOPROLOL SUCC 50MG EXT REL TAB PO STA (23:08)
--- NOTE | 2025-02-07 00:16 | XRay Report ---
Exam(s): XR CXR 1 VIEW EXAM: XR Chest, 1 View CLINICAL HISTORY: Reason for exam: Chest pain, nonspecific. TECHNIQUE: Frontal view of the chest. COMPARISON: 09/08/2022 FINDINGS: Lungs: Unremarkable. No consolidation. Pleural space: Unremarkable. No pneumothorax. Heart: Unremarkable. No cardiomegaly. Mediastinum: Unremarkable. Normal mediastinal contour. Bones/joints: There is mild bilateral shoulder degenerative joint disease. No acute fracture. Upper abdomen: There is mild elevation of the right hemidiaphragm. IMPRESSION: No acute findings in the chest. Electronically signed by: Elia Bustos MD 02/07/25 00:15 AM
--- NOTE | 2025-02-07 02:12 | CT Scan Report ---
EXAM: CT head/brain wo con CLINICAL HISTORY: Dizziness, HTN TECHNIQUE: Multiple axial images are obtained from the skull base to the vertex without contrast. CT scan was performed according to ALARA (as low as reasonable achievable). COMPARISON: None. FINDINGS: Focal old ischemic gliotic area is noted involving right parietal cortex and subcortical white matter. There is cerebral atrophy. No evidence of space occupying lesion, hemorrhage, edema, mass effect, midline shift, extra axial collection, or hydrocephalus is noted. Basal cisterns are symmetric and normal in size and configuration. There are scattered periventricular hypodensities as can be seen with chronic microvascular ischemic changes. The clark-white matter differentiation is preserved. Left maxillary sinusitis. Rest of paranasal sinuses and mastoid air cells are well aerated. Orbital contents are within normal limits. Bony structures are intact. IMPRESSION: 1. No evidence of acute intracranial abnormality is demonstrated. 2. Chronic microvascular ischemic changes. 3. Cerebral atrophy. 4.Focal old ischemic gliotic area is noted involving right parietal cortex and subcortical white matter. Electronically signed by Nelson Wells 02-07-2025 02:12 AM
[2025-02-07] MEDS ORDERED: ONDANSETRON INJ 2 MG/ML 2 ML VIAL IV PRN (02:16)
[2025-02-07] MEDS ORDERED: ACETAMINOPHEN 325 MG TAB PO PRN (02:16)
[2025-02-07] MEDS ORDERED: POLYETHYLENE (MIRALAX) 17 GM PACK PO PRN (02:16)
[2025-02-07] MEDS: MAGNESIUM SULFATE / D5W 1 GM/100 ML BAG IV SCH (02:51)
[2025-02-07 04:42] LABS: BUN Creatinine Ratio 19.4 (10-20); Calcium 9.5 mg/dl (8.6-10.3); Chol HDL Ratio 1.9 (0-5); Creatinine Clr Calc Pharmacy 55.6 ml/min; Potassium 3.9 mmol/L (3.5-5.1)
[2025-02-07 04:53] LABS: Appearance Urine Clear (Clear); Bacteria Urine Automated None Seen (None Seen); Bilirubin Urine Negative (Negative); Blood Urine Negative (Negative); Cast Urine Automated 0-2 /lpf (0-2); Color Urine Yellow; Epithelial Cell Urine Auto 0-2 /hpf (0-2); Glucose Urine UA Negative (Negative); Ketones Urine Negative (Negative); Leukocyte Esterase Urine Trace (Negative); Nitrite Urine Negative (Negative); Protein Urine Negative (Negative); RBC Urine Automated 0-2 /hpf (0-2); Specific Gravity Urine 1.006 (1.000-1.030); Urobilinogen Urine Negative (Negative); WBC Urine Automated 0-5 /hpf (0-5); pH Urine 7.5 (4.5-7.5)
[2025-02-07] MEDS: amLODIPine BESYLATE 5 MG TAB PO SCH (07:57)
[2025-02-07] MEDS: allopurinoL 300 MG TAB PO SCH (07:58)
[2025-02-07] MEDS: ATORVASTATIN 40 MG TAB PO SCH (07:58)
[2025-02-07] MEDS: APIXABAN 5 MG TABLET PO SCH (07:58)
--- NOTE | 2025-02-07 11:03 | Hospitalist Progress Note ---
Date of Service February 07, 2025 Assessment & Plan (1) Dizziness: (2) Elevated troponin: (3) Atrial flutter with rapid ventricular response: (4) Chest pain: (5) Paroxysmal atrial fibrillation: Plan 84-year-old female PMH of ND s/p stent, afib on Eliquis, CAD, GERD, HLD, HTN, c ardiomyopathy, systolic HF, presenting for onset of chest pain 02/07/25 at 2100. Patient was hypertensive on admission. Tropoin was elevated at 38.4, down to 36.4. #Chest pain Chest pain starting at 2100 on 02/06/35 with radiation down L arm and some tingling sensation. No neck/jaw pain, denies nausea and vomiting - h/o cardiac disease with 2 prior MIs s/p stent placement. Follows with cardiology. Of note, patient gets her prescriptions through [facility] and has been without her normal doses for likely 1-2 days. Suspect that the chest pain is likely cardiac in nature. - Troponin 31.6, ekg without ischemic changes- likely demand related - CBC without leukocytosis and with stable H/H; TSH WNL - CXR: no acute abnormalities. - Echo 08/2022 55 to 60%, mild concentric LVH; pending echo Plan: -Cardiology consulted, for further work up: stress test vs cath #Hypertensive crisis #Dizziness Patient does admit to some dizziness that has been present over the last 3 weeks. Family states she has had staring episodes where she does not respond. Patient is aware that she is confused during these episodes but cannot talk. She has not had any LOC, weakness, or syncopal events. She has no neurological deficits on exam. Pt is on Eliquis and atorvastatin. Source is likely TIA due to vasospasm associated with HTN; however, we need to rule out other embolic causes with MRI and carotid duplex. Source is less likely to be cardioembolic, which will be ruled out during cardiac workup. -TIA vs Hypertensive Encephalopathy - CT head showed no acute abnormalities. There is evidence of chronic microvascular change and prior ischemic changes Plan: -Consider MRI brain if symptoms returned -Cartoid duplex ordered - Vasotec q6hr prn #Hypomagnesemia - resolved No h/o. Having some dizziness. - Mg 1.4 uptrending to 2.3 - MgSO4 2g IV given in ED (total) - provide additional 2g for total 4g IV #HLD- Atorvastatin #HTN/Afib- Amlodipine/Metoprolol; Eliquis #GERD- Pantoprazole Dispo: Admit, PCU VTE Prophylaxis: Eliquis Admission and Anticipated Discharge Date Admission Date: February 06, 2025 Supervising Physician Co-Signing Physician Notes I personally examined the patient and verified all farnsworth points of history and exam, discussed case, and agree with decision making with Dr Luke Kovacs and Chris Edwards MS2 feeling ok now. revisited HPI. a little difficult to tell how long she was out of meds but did note trouble gettign all of her meds because of problems with vitals noted nad heent nc at mmm breathing unlabored no accessory muscles good effort skin no rashes no pallor or icterus CP, staring spells/difficulty word finding - most likely symptomatic hypertension/ hypertensive crisis - quite possibly all simply due to not having regular medications. follow on Rx'd home meds. ---checking carotids/w/u for cerebrovascular disease since most likely hypertensive but hard to r/o atherosclerotic/ischemic ---asking cardiology for opinion similarly with CP on utility of stress testing vs med management and observation otherwise as above Subjective 84-year-old female PMH of ND s/p stent, afib on Eliquis, CAD, GERD, HLD, HTN, cardiomyopathy, systolic HF, presenting for onset of chest pain 02/06/25 at 2100. She states that on the day of arrival, she was getting out of the shower when she started to notice left-sided chest pain which she mostly describes as heaviness, mainly localized to the left side of her chest. States that the pain radiated somewhat down her left arm and shoulder not to her back, neck, or jaw. Reports that the symptoms lasted until she got to the hospital but it felt similar, less severe than prior MIs. Denies diaphoresis, SOB, nausea, vomiting, abdominal pain, or syncope. Patient states that she has felt dizziness over the last 3 weeks. She has not had any falls. Her son describes periods over the last week where she won't answer anyone for 5-8 minutes. She does not lose consciousness, or have any convulsions or repetitive movements. The patient states she feels confused during these events, is aware of someone speaking to her, but cannot answer/get wores out. She also notes a sharp headache on 02/03/25 located across the bilateral frontotemporal region. She does not check her BP at home. Reports never having any seizure activity. Denies any motor weakness, facial droop, slurred speech, LOC. Review of Systems Review of Systems: Constitutional: Denies fever, chills, malaise, weight loss, night sweats HEENT: Denies head pain, headaches. Denies eye pain, vision loss/changes, blurry vision, double vision. Denies ear pain, and hearing loss. Denies sore throat or sore neck or sinus pain. Respiratory: Denies SOB, cough, sputum production, pleuritic chest pain, wheezing CV: Denies chest pain at this time, heart palpitations, tachycardia, bradycardia, edema GI: Denies abdominal pain, constipation, diarrhea, nausea, vomiting, hematochezia : Denies dysuria, increased urinary frequency, hematuria MSK: Denies joint pain, muscle pain, decreased ROM, Neuro: as per HPI Psych: Denies symptoms of depression or anxiety. Physical Exam Physical Exam: General: Alert and oriented X3, well appearing and in no acute distress HEENT: Normocephalic, atraumatic, PERRL, moist mucous membranes, neck is supple, trachea midline, no lymphadenopathy or thyromegaly appreciated Respiratory: Chest is CTAB without wheezes, rales, or rhonchi Cardiovascular: Heart has RRR without murmurs, rubs, or gallops. No carotid bruits, JVD, or lower extremity edema. 2+ distal pulse palpated in all four extremities Abdomen: Abdomen is mildly tender in the suprapubic region, soft, nondistended. No hepatosplenomegaly appreciated. Normoactive bowel sounds. Negative Rivas's and McBurneys Musculoskeletal: Normal range of motion and 5/5 strength in all extremities. Neurologic: Cranial nerves II through XII are intact. Visual field in tact. Motor strength 5/5 bilaterally. Sensation to light touch in tact. Psychiatric: Appropriate mood and affect. Results & Data Results & Data Vital Signs (Past 12 Hours) Vital Signs Temp Pulse Pulse Resp BP BP BP 02/07/25 09:29 02/07/25 07:38 56 L 02/07/25 07:26 36.4 C L 59 L 19 185/83 H 02/07/25 03:56 188/82 H 02/07/25 02:38 185/91 H 02/07/25 02:31 67 02/07/25 02:30 36.3 C L 66 16 209/98 H 02/07/25 02:04 56 L 02/07/25 02:00 74 18 180/92 H 02/07/25 01:30 65 20 172/94 H 02/07/25 01:00 77 21 139/101 H 02/07/25 00:30 85 24 182/95 H 02/07/25 00:00 80 19 188/102 H 02/06/25 23:30 84 17 175/93 H 02/06/25 23:00 77 20 230/121 H 02/06/25 22:42 84 20 236/169 H 02/06/25 22:30 81 19 209/111 H Pulse Ox O2 Del Method 02/07/25 09:29 Room Air 02/07/25 07:38 02/07/25 07:26 94 Room Air 02/07/25 03:56 02/07/25 02:38 02/07/25 02:31 02/07/25 02:30 95 Room Air 02/07/25 02:04 02/07/25 02:00 96 02/07/25 01:30 96 02/07/25 01:00 93 02/07/25 00:30 94 02/07/25 00:00 95 02/06/25 23:30 95 02/06/25 23:00 94 02/06/25 22:42 97 02/06/25 22:[address] 02/06/25: IMPRESSION: 1. No evidence of acute intracranial abnormality is demonstrated. 2. Chronic microvascular ischemic changes. 3. Cerebral atrophy. 4.Focal old ischemic gliotic area is noted involving right parietal cortex and subcortical white matter. Resident Activity Tracking Resident Involvement: Resident Care Provided Care Provided: [facility]
[2025-02-07 11:32] LABS: Magnesium 2.3 mg/dl (1.7-2.4)
[2025-02-07 12:17] VITALS: RESP 18
--- NOTE | 2025-02-07 14:25 | Electrocardiogram Report ---
Test Reason : Blood Pressure : */* mmHG Vent. Rate : 76 BPM Atrial Rate : 76 BPM P-R Int : 174 ms QRS Dur : 82 ms QT Int : 386 ms P-R-T Axes : 28 -14 61 degrees QTcB Int : 434 ms Normal sinus rhythm Minimal voltage criteria for LVH, may be normal variant ( R in aVL ) Cannot rule out Anterior infarct , age undetermined Abnormal ECG When compared with ECG of 06-Feb-2025 21:25, (unconfirmed) Premature ventricular complexes are no longer Present Vent. rate has decreased by 64 bpm Confirmed by Oliver Padron ([id number]) on 02/07/2025 2:25:43 PM Referred By: REFERRED SELF Confirmed By: Oliver Padron
--- NOTE | 2025-02-07 14:25 | Electrocardiogram Report ---
Test Reason : Blood Pressure : */* mmHG Vent. Rate : 140 BPM Atrial Rate : * BPM P-R Int : * ms QRS Dur : 76 ms QT Int : 350 ms P-R-T Axes : * -13 50 degrees QTcB Int : 534 ms Sinus tachycardia with occasional Premature ventricular complexes Minimal voltage criteria for LVH, may be normal variant ( R in aVL ) Nonspecific ST and T wave abnormality Abnormal ECG When compared with ECG of 09-Sep-2022 21:45, Sinus rhythm has replaced Atrial fibrillation Nonspecific T wave abnormality, improved in Inferior leads Nonspecific T wave abnormality, improved in Anterolateral leads Confirmed by Oliver Padron ([id number]) on 02/07/2025 2:25:34 PM Referred By: REFERRED SELF Confirmed By: Oliver Padron
--- NOTE | 2025-02-07 16:10 | Ultrasound Report ---
INDICATION: History of coronary artery disease. COMPARISON: None. TECHNIQUE: Ultrasound imaging of the bilateral extracranial carotid arterial system was performed including color and spectral Doppler evaluation with product representative images obtained. Velocity criteria are extrapolated from diameter data validated with angiographic measurements as based on the Society of Radiologists in Ultrasound Consensus Conference, Radiology 2003; 229; 340-346. FINDINGS: RIGHT CAROTID: Mild plaque formation. RIGHT ICA Systolic: 76 cm/s RIGHT ICA Diastolic: 22 cm/s RIGHT CCA: 75 cm/s RIGHT ICA/CCA RATIO: 1 LEFT CAROTID: Mild plaque formation. LEFT ICA Systolic: 102 cm/s LEFT ICA Diastolic: 31 cm/s LEFT CCA: 104 cm/s LEFT ICA/CCA RATIO: 0.98 VERTEBRAL ARTERIES: RIGHT: Antegrade LEFT: Antegrade IMPRESSION: No hemodynamically significant stenosis. Electronically signed by Jeremy Silvestre 02-07-2025 4:10 PM
[2025-02-07] MEDS: PANTOprazole 40 MG TAB PO SCH (16:33)
--- NOTE | 2025-02-07 17:29 | Billing Data ---
Date of Service February 07, 2025 Coding Level of Care Code 37228 SUB INP/OBS CARE MIN
[2025-02-07] MEDS ORDERED: ENALAPRILAT 0.625 MG in SYRINGE 9.5 ML IV PRN (17:32)
[2025-02-07] MEDS: METOPROLOL SUCC 50MG EXT REL TAB PO SCH (20:05)
--- NOTE | 2025-02-07 21:56 | XCELERA ---
[id number] \\[id number]
[2025-02-07] MEDS: traZODone HCL 50 MG TAB PO PRN (22:31)
[2025-02-08 07:55] LABS: Hemoglobin 14.3 g/dl (12.0-16.0); Mean Corpuscular Hemoglobin 28.7 pg (25.0-34.0); Mean Corpuscular Hgb Conc 33.3 g/dL (32.0-36.0); Mean Corpuscular Volume 86.2 fL (80.0-100.0); Mean Platelet Volume 8.9 fL (9.4-12.4); Platelet Count 326 K/uL (130-400); RDW Coefficient of Variation 13.6 % (11.5-14.5); RDW Standard Deviation 42.5 fL (36.4-46.3); Red Blood Count 4.99 M/uL (4.20-5.40); White Blood Count 9.07 K/ul (4.8-10.8)
[2025-02-08 08:19] LABS: Calcium 9.5 mg/dl (8.6-10.3); Magnesium 1.9 mg/dl (1.7-2.4); Potassium 4.5 mmol/L (3.5-5.1)
[2025-02-08 08:24] LABS: BUN Creatinine Ratio 26.9 (10-20); Phosphorus 3.6 mg/dl (2.5-4.9)
[2025-02-08 11:21] VITALS: BP 171/76; PULSE 55; TEMP 97.7; O2SAT 94
--- NOTE | 2025-02-08 12:44 | Discharge Summary ---
Date of Service February 08, 2025 Admission HPI Per Admitting Provider 84-year-old female PMHx PAF on Eliquis, CAD, GERD, HLD, HTN, cardiomyopathy, systolic HF, and s/p stents presenting for onset of chest pain developing day of arrival at 2100. Patient with history of prior MD. States that on the day of arrival, she was getting out of the shower when she started to notice left-sided chest pain which she mostly describes as heaviness, mainly localized to the left side of her chest. States that the pain radiated somewhat down her left arm and shoulder not to her back or neck. Reports that the symptoms lasted approximately 30 minutes but it felt similar, less severe than prior MIs. Did have slight occurrence of palpitations which she states she sometimes gets. Denies diaphoresis but she did just get out of the shower; also denying SOB, N/V, abdominal pain, or syncope. Of note, patient does state that for the past week or so she has been having some dizziness in which she feels that she is off balance that she may fall over. She states that she might of had some of this symptom on the day of arrival but no syncope or falls. Also denying D/C, LUTS,, URI symptoms, fever/chills, cough. ED evaluation reveals no leukocytosis, stable H&H, PT/INR WNL; CMP with glucose 200, magnesium 1.4; troponin 31.6, pending repeat; EKG SVT with occasional PVCs at 140 bpm on arrival; provided with metoprolol tartrate 5 mg IV, mag sulfate 1 g IV, and aspirin 324 mg p.o. in ED. Please see Dr. Marshall's attestation for adjustments/additions to treatment plan. Admission Exam Per Admitting Provider General: No acute distress; Hypertensive in the 200s/100s during visit Skin: Warm and dry Head: Normocephalic, atraumatic Eyes: PERRL, conjunctivae clear, sclera non-icteric ENT: External ear and ear canal without swelling; nose atraumatic; good dentition, tongue normal appearance, pharynx normal Neck: Supple, no LAD Cardio: RRR, no M/G/R, S1 and S2 normal Resp: No respiratory distress, Lungs CTA in all lobes bilaterally, no wheezes, rales, or rhonchi Abdomen: Soft, symmetric, nontender; No masses or hepatosplenomegaly; Bowel sounds normoactive MSK: No deformities; pulses palpable and equal; no edema. Neuro: II- PERRL, no VF deficits III, IV, - EOMs intact, no deviation, no nystagmus V- Normal sensation in all locations VII- No asymmetry, no nasolabial fold flattening VIII- Normal hearing to speech IX, X- Normal palatal elevation, no ulnar deviation XI- 4/5 head turn + shoulder shrug bilaterally XII- Midline tongue protrusion Motor: 4/5 strength throughout BUE/BLE Reflexes: WNL throughout, no clonus Sensory: Normal sensation throughout, no hemineglect Coordination: Normal [id number], no tremor Gait: Unable to asses; no complaints Psych: Appropriate mood and affect; good judgement and insight. Principal Diagnosis Chest Pain Hypertensive Crisis Dizziness Discharge Exam General: Alert and oriented X3, well appearing and in no acute distress HEENT: Normocephalic, atraumatic, PERRL, moist mucous membranes, neck is supple, trachea midline, no lymphadenopathy or thyromegaly appreciated Respiratory: Chest is CTAB without wheezes, rales, or rhonchi Cardiovascular: Heart has RRR without murmurs, rubs, or gallops. No carotid bruits, JVD, or lower extremity edema. 2+ distal pulse palpated in all four extremities Abdomen: Abdomen is nontender, soft, nondistended. No hepatosplenomegaly appreciated. Normoactive bowel sounds. Negative Rivas's and McBurneys Musculoskeletal: Normal range of motion and 5/5 strength in all extremities. Neurologic: Cranial nerves II through XII are intact. Visual field in tact. Motor strength 5/5 bilaterally. Sensation to light touch in tact. Psychiatric: Appropriate mood and affect. Discharge Data Allergies Allergy/AdvReac Type Severity Reaction Status Date / Time No Known Allergies Allergy Unknown Verified 09/29/24 13:40 Consultations 02/06/25 22:24 ED Decision to Admit Stat 02/07/25 08:54 Consult Cardiology Routine Ordered Studies Chest X-Ray 02/06/25 21:25 Exam(s): XR CXR 1 VIEW EXAM: XR Chest, 1 View CLINICAL HISTORY: Reason for exam: Chest pain, nonspecific. TECHNIQUE: Frontal view of the chest. COMPARISON: 09/08/2022 FINDINGS: Lungs: Unremarkable. No consolidation. Pleural space: Unremarkable. No pneumothorax. Heart: Unremarkable. No cardiomegaly. Mediastinum: Unremarkable. Normal mediastinal contour. Bones/joints: There is mild bilateral shoulder degenerative joint disease. No acute fracture. Upper abdomen: There is mild elevation of the right hemidiaphragm. IMPRESSION: No acute findings in the chest. Electronically signed by: Elia Bustos MD 02/07/25 00:[address] 02/06/25 23:24 EXAM: CT head/brain wo con CLINICAL HISTORY: Dizziness, HTN TECHNIQUE: Multiple axial images are obtained from the skull base to the vertex without contrast. CT scan was performed according to ALARA (as low as reasonable achievable). COMPARISON: None. FINDINGS: Focal old ischemic gliotic area is noted involving right parietal cortex and subcortical white matter. There is cerebral atrophy. No evidence of space occupying lesion, hemorrhage, edema, mass effect, midline shift, extra axial collection, or hydrocephalus is noted. Basal cisterns are symmetric and normal in size and configuration. There are scattered periventricular hypodensities as can be seen with chronic microvascular ischemic changes. The clark-white matter differentiation is preserved. Left maxillary sinusitis. Rest of paranasal sinuses and mastoid air cells are well aerated. Orbital contents are within normal limits. Bony structures are intact. IMPRESSION: 1. No evidence of acute intracranial abnormality is demonstrated. 2. Chronic microvascular ischemic changes. 3. Cerebral atrophy. 4.Focal old ischemic gliotic area is noted involving right parietal cortex and subcortical white matter. Electronically signed by Nelson Wells 02-07-2025 02:12 AM Carotid Doppler Study 02/07/25 14:46 INDICATION: History of coronary artery disease. COMPARISON: None. TECHNIQUE: Ultrasound imaging of the bilateral extracranial carotid arterial system was performed including color and spectral Doppler evaluation with call center representative images obtained. Velocity criteria are extrapolated from diameter data validated with angiographic measurements as based on the Society of Radiologists in Ultrasound Consensus Conference, Radiology 2003; 229; 340-346. FINDINGS: RIGHT CAROTID: Mild plaque formation. RIGHT ICA Systolic: 76 cm/s RIGHT ICA Diastolic: 22 cm/s RIGHT CCA: 75 cm/s RIGHT ICA/CCA RATIO: 1 LEFT CAROTID: Mild plaque formation. LEFT ICA Systolic: 102 cm/s LEFT ICA Diastolic: 31 cm/s LEFT CCA: 104 cm/s LEFT ICA/CCA RATIO: 0.98 VERTEBRAL ARTERIES: RIGHT: Antegrade LEFT: Antegrade IMPRESSION: No hemodynamically significant stenosis. Electronically signed by Jeremy Silvestre 02-07-2025 4:10 PM 02/06/25 23:24 CT head/brain wo con Stat 02/07/25 14:46 Carotid duplex [US carotid doppler BI] Routine 02/07/25 18:33 MRI Brain [MR brain wo/w con] Routine Hospital Course (1) Chest pain: (2) Dizziness: (3) Elevated troponin: Plan 84-year-old female PMH of MD s/p stent, afib on Eliquis, CAD, GERD, HLD, HTN, cardiomyopathy, systolic HF, presenting for onset of chest pain 02/07/25 at 2100. Patient was hypertensive on admission. #Chest pain -Chest pain starting at 2100 on 02/06/35 with radiation down L arm and some tingling sensation. No neck/jaw pain, denies nausea and vomiting - h/o cardiac disease with 2 prior MIs s/p stent placement. Follows with cardiology. Of note, patient gets her prescriptions through [facility] and has been without her normal doses for roughly 1 week. - Troponin 31.6, ekg without ischemic changes- likely demand related - CXR: no acute abnormalities. -Echocardiogram 02/07/25: No significant changes from prior study 09/11/22 Plan: -Patient counseled on red flag symptoms -Manage Hypertension -Follow up with PCP and instructional technologist. #Hypertensive crisis #Dizziness -TIA vs Hypertensive Encephalopathy -Family states that patient has episodes of staring and not responding for 5-8 minutes over the last week. -Symptoms correlate in time with patient running of out blood pressure medication. HTN is likely the source of her episodes of staring and inability to speak. - CT head 02/06/25 showed no acute abnormalities. There is evidence of chronic microvascular change and prior ischemic changes -Carotid Doppler 02/07/25: mild plaque in Right Carotid Plan: -Monitor BP twice daily with home blood pressure monitor. Check BP if any symptoms return -Bring results of at-home blood pressure checks to follow up appt. with PCP. -PCP to consider adding DALE/ARB if increased BP control is indicated. - Continue statin daily #HLD- Atorvastatin #HTN/Afib- Amlodipine/Metoprolol; Eliquis #GERD- Pantoprazole Admission and Anticipated Discharge Date Admission Date: February 06, 2025 Discharge Date: February 08, 2025 Total Time Total Time Spent Total Time Spent (In Minutes): <30 Discharge Plan Discharge Items Patient Disposition: Home - Self-Care Reason For Visit: CHEST PAIN Discharge Diagnosis: Hypertension Activity: Per Instructions section Non-emergency contact: Primary Care Provider Call non-emergency contact if: you have any medication questions Follow-up/Referrals: Connie Bay MD [Primary Care Provider] - 02/16/25 1:00 pm (Hospital follow up on February 16 at 1 pm with an arrival time of 12:45 pm.) Diet: Regular Addtl Attending Provider Instructions: - You were in the hospital due to chest pain and episodes of confusion/ inability of find words. Cardiac enzymes and echocardiogram was not concerning for a MD. Carotid sonogram was normal, no significant plaques. - We rule out any acute stroke or bleeding with a head CT. These episodes are secondary to hypertensive vasospasm. Vasospasm is the sudden narrowing or construction of a blood vessels reducing the blood flow to the area As we discussed, keep a diary of your Blood pressure for at least a week to bring to your PCP. Pending Studies at Discharge: No Stand-Alone Forms: My [facility] [employer], Smoking Cessation Medications and DC Order Prescriptions: New atorvastatin 40 mg Tablet 40 mg PO QAM Qty: 30 0RF metoprolol succinate 50 mg Tablet Extended Release 24 Hr 200 mg PO HS Qty: 30 0RF amlodipine [Norvasc] 5 mg Tablet 10 mg PO QAM Qty: 30 0RF allopurinol 300 mg Tablet 300 mg PO QAM Qty: 30 0RF Eliquis 5 mg Tablet 5 mg PO BID Qty: 30 0RF Continued metoprolol succinate 100 mg tablet extended release 24 hr 200 mg PO HS Qty: 180 3RF atorvastatin 40 mg tablet 40 mg PO QAM Qty: 90 3RF amlodipine 10 mg tablet 10 mg PO QAM Qty: 90 3RF Eliquis 5 mg tablet 5 mg PO BID Qty: 180 3RF nitroglycerin [Nitrostat] 0.4 mg Tablet, Sublingual 0.4 mg sublingual PRN PRN (Reason: chest pain) Qty: 30 1RF multivitamin Tablet 1 tab PO QAM allopurinol 300 mg Tablet 300 mg PO QAM cholecalciferol (vitamin D3) [Vitamin D3] 1,000 unit Tablet,Chewable 1,000 unit PO QAM fluticasone propionate 50 mcg/actuation [place],Suspension 2 spray NA HS Qty: 16 0RF pantoprazole 40 mg tablet,delayed release (DR/EC) 40 mg PO QDD Qty: 90 3RF Rx Instructions: Take 20-30 minutes before dinner. Discharge Orders: Discharge Order (Routine); Ordered 02/08/25 Ordered By: Sowmya Kovacs Admission Data Admit Date/Time: 02/06/25 22:59 Attending Provider: Uri Rust Admit Provider: Erlinda Marshall Primary Care Provider: Connie Bay Other Providers: Erlinda Marshall; Oliver Padron; [facility] Other Interventions: Discharge Summary Assessment (RN) Last Done: 02/08/25 10:57 Supervising Physician Co-Signing Physician Notes I personally examined the patient and verified all [place] points of history and exam, discussed case, and agree with decision making with Dr Luke Kovacs and Chris Edwards MS2 feeling ok now. family present. no recurrence of CP or of confusion episodes vitals noted nad heent nc at mmm breathing unlabored no accessory muscles good effort skin no rashes no pallor or icterus CP, staring spells/difficulty word finding - most likely symptomatic hypertension/ hypertensive crisis - quite possibly all simply due to not having regular medications. BP reasonable overall once back on home meds given ongoing inpatient stay as well as age -> currently will hold off on escalating meds. home on current regimen (family asked that meds be sent to [facility] in [place] so they can have more direct interface with pharmacy to reduce chances of meds not being filled/etc) and get BP cuff, follow at home regularly; consider adding ARB if BP persistently high at home - but doubt this will be the case (more than likely will do well as long as she regularly is able to take the meds she's prescribed) otherwise as above
--- NOTE | 2025-02-08 12:47 | Cardiology Consultation ---
Date of Consultation February 08, 2025 Assessment & Plan (1) Chest pain: 2. CAD --Post PCI to LAD, D2 --Residual moderate left main disease 3. Recovered cardiomyopathyEF 30%, out of proportion to CAD, suspected stress- induced component, EF 55 to 60% 08/2022 4. Hypertensionwell-controlled on CCB, BB 5. DyslipidemiaLDL excellent, 32 12/2022 6. GERD/dyspepsia 7. Borderline diabeteslast A1c 6.8 8. Paroxysmal atrial fibrillation/flutterdiagnosed 08/2022 in the setting of pericardial effusion/pericarditis/viral illness, [id number], on Eliquis Patient admitted with episode of chest pain in the setting of hypertension, atrial flutter with RVR. Very low suspicion episode secondary to ACS. Suspect minimal troponin secondary to demand ischemia. Prior to recent episode no new anginal symptoms. Recommend continued medical management of known residual CAD. No need for additional ischemic evaluation. From a cardiac standpoint okay with discharge today Plan to resume prior Toprol-XL, amlodipine Continue anticoagulation with Eliquis We talked about monitoring home blood pressures and will arrange follow-up with cardiology in 2 to 3 weeks. History of Present Illness Attending Physician: Uri Rust DO History of Present Illness Ms. Borja is a very pleasant 84-year-old woman known to me from the outpatient setting and prior procedures seen today in hospital after admitted with episode of chest pain and transient episodes of speech difficulties. For the last week or so patient/son report 2-3 episodes where seem to have trouble finding her words. Episodes are brief and the rest of the time no other neurologic symptoms. Day admission developed left-sided chest pain radiating to right shoulder similar to what she had with her [place]. On arrival to hospital was hypertensive with pressures as high as 200s and tachycardic to the 140s which appeared to be previously seen atrial flutter. Converted after IV metoprolol back to sinus rhythm. States that her chest pain went away gradually in the ED. Pain for maybe 30 minutes. Since admitted no recurrence of chest pain. Has remained in sinus rhythm. Repeat echo showed LVH, EF 65% with no wall motion abnormalities, no new significant valve disease. HS TropI flat in the 30s. Head CT/carotid duplex unremarkable. Of note patient had been out of one of her medications for the preceding week (? Metoprolol). Allergies Allergy/AdvReac Type Severity Reaction Status Date / Time No Known Allergies Allergy Unknown Verified 09/29/24 13:40 Home Medications Medication Instructions Recorded Confirmed Type allopurinol 300 mg tablet 300 mg PO QAM 07/13/19 02/06/25 History multivitamin 1 tab PO QAM 07/13/19 02/06/25 History cholecalciferol (vitamin D3) 25 1,000 unit PO QAM 11/19/19 02/06/25 History mcg (1,000 unit) chewable tablet (Vitamin D3) nitroglycerin 0.4 mg sublingual 0.4 mg sublingual PRN PRN chest 11/29/20 02/06/25 Rx tablet (Nitrostat) pain #30 tabs metoprolol succinate 100 mg 200 mg (2 x 100 mg) PO HS #180 tabs 03/05/21 02/06/25 Rx tablet,extended release 24 hr fluticasone propionate 50 2 spray NA HS #16 grams 09/11/22 02/06/25 Rx mcg/actuation nasal spray,suspension pantoprazole 40 mg tablet,delayed 40 mg PO QDD #90 tabs 09/11/22 02/06/25 Rx release atorvastatin 40 mg tablet 40 mg PO QAM #90 tabs 07/22/24 02/06/25 Rx amlodipine 10 mg tablet 10 mg PO QAM #90 tabs 10/19/24 02/06/25 Rx apixaban 5 mg tablet (Eliquis) 5 mg PO BID #180 tabs 01/02/25 02/06/25 Rx allopurinol 300 mg tablet 300 mg PO QAM #30 tabs 02/08/25 Rx amlodipine 5 mg tablet (Norvasc) 10 mg (2 x 5 mg) PO QAM #30 tabs 02/08/25 Rx apixaban 5 mg tablet (Eliquis) 5 mg PO BID #30 tabs 02/08/25 Rx atorvastatin 40 mg tablet 40 mg PO QAM #30 tabs 02/08/25 Rx metoprolol succinate 50 mg 200 mg (4 x 50 mg) PO HS #30 tabs 02/08/25 Rx tablet,extended release 24 hr Patient History Medical History Chest pain Hypoxia ST elevation myocardial infarction (STEMI) November 2020 s/p MEGGAN to D2 and mid-LAD 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 Osteoarthritis Surgical History History of intestinal surgery History of right hip replacement Right CHRISTINE: 07/22/19: SAB x 1 at L3-L4 at [facility] History of colonoscopy History of repair of rotator cuff RIGHT History of cholecystectomy History of hysterectomy TOTAL History of appendectomy History of total knee replacement LEFT History of cataract surgery R/L Family History Brother Family hx of colon cancer Sister Myocardial infarction Social History Smoking Status: Never smoker Second Hand Exposure: No; Do You Dip or Chew Tobacco: No; Hx Alcohol Use: No Hx Substance Use: No Preferred Language: Maltese Communication Ability: Effective Porcelain Enamel Sprayer Required: No Beliefs That Will Affect Care: None marital status: / Current Living Situation: Family Current Living Situation Comment: Son and daughter in law current occupation: RETIRED Feels Safe at Home: Yes Assistive Devices: None Review of Systems Review of Systems: All systems reviewed & are unremarkable except as noted in HPI & below Physical Exam Physical Exam: General: Comfortable HEENT: Sclerae anicteric Lungs: Clear to auscultation bilaterally Cardiac: Regular rate and rhythm, no murmurs. No JVD Vascular: 2+ radial No bruits Abdomen: Soft, nontender Extremities: Well perfused, mild hyperpigmentation over bilateral shins, few telangiectasias. No edema Neuro: Nonfocal Psych: Alert orient x3, normal affect and mood Results & Data Vital Signs (Past 12 Hours) Vital Signs Temp Pulse Pulse Resp BP BP Pulse Ox 02/08/25 11:20 97.7 F 55 L 18 171/76 H 94 02/08/25 10:57 98.1 F 52 L 18 185/91 H 178/89 H 96 02/08/25 07:51 48 L 02/08/25 07:07 98.1 F 52 L 18 178/89 H 96 02/08/25 03:10 97.2 F L 54 L 18 145/71 H 95 O2 Del Method 02/08/25 11:20 Room Air 02/08/25 10:57 03/25/25 07:51 02/08/25 07:07 Room Air 02/08/25 03:10 Room Air PG Care Time/CCT Total # of Minutes Spent Total Time Spent with Patient: Total time spent is greater than 50% in coordination of care (as documented) at patient's floor/unit and/or counseling patient: Coding Level of Care Code 71068 INT INP/OBS CARE 2/55MIN Diagnoses Chest pain R07.9
--- NOTE | 2025-02-08 17:30 | Billing Data ---
Date of Service February 08, 2025 Coding Level of Care Code 71466 IN/OBS DISCH 30 MIN/LESS
== END 2025-02-08 13:40 | disposition home or self-care (01) ==
LOC: ED 21:16 → 2S 21:16 → SUATTDRO 22:59 → 2S 02-07 01:46